=== PATIENT | female | born 1945 | race Caucasian/White ===

== ENCOUNTER 2016-10-12 15:36 | Inpatient (IN) | payer MEDICARE ==
[~2016-10-12] VITALS: Ht 162.6 cm; Wt 55.9 kg
[2016-10-12 19:00] VITALS: BP 99/56
[2016-10-12] MEDS ORDERED: SENNOSIDES 8.6 MG TABLET PO PRN (19:15)
[2016-10-12] MEDS ORDERED: METHOTREXATE SODIUM 50 MG/2 ML VIAL SQ SCH (21:00)
[2016-10-12] MEDS: CEPHALEXIN 250 MG CAPSULE. PO SCH ×2 (21:00→22:36)
[2016-10-12] MEDS: clonazePAM 0.5 MG TABLET PO SCH ×2 (21:00→22:36)
[2016-10-12 21:07] LABS: BASO % 0 % (0-3); EOS % 0 % (0-3); HEMATOCRIT 35.1 % (36.0-47.0); HEMOGLOBIN 11.6 g/dL (12.0-15.5); LYMPH # 1.3 x10^3/uL (1.0-4.8); LYMPH % 16 % (24-48); MEAN CORPUSCULAR HEMOGLOBIN 28 pg (25-35); MEAN CORPUSCULAR HGB CONC 33 g/dL (31-37); MEAN CORPUSCULAR VOLUME 86 fL (79-100); MONO % 10 % (0-9); NEUT % 74 % (31-73); PLATELET COUNT 303 x10^3/uL (140-400); RED CELL DISTRIBUTION WIDTH 17.4 % (11.5-14.5); WHITE BLOOD COUNT 8.3 x10^3/uL (4.0-11.0)
[2016-10-12 21:17] LABS: ALBUMIN 2.4 g/dL (3.4-5.0); ALBUMIN/GLOBULIN RATIO 0.6 (1.0-1.7); C-REACTIVE PROTEIN 125.5 mg/L (0-3.3); CREATININE 0.7 mg/dL (0.6-1.0); GFR 82.5; MAGNESIUM 2.1 mg/dL (1.8-2.4); POTASSIUM 3.4 mmol/L (3.5-5.1); TOTAL BILIRUBIN 0.7 mg/dL (0.2-1.0); TOTAL PROTEIN 6.5 g/dL (6.4-8.2)
[2016-10-12] MEDS: POTASSIUM CL 20MEQ IN D5W 1,000 ML IV SCH (22:36)
[2016-10-12] MEDS: XIIDRA OU SCH (22:37)
[2016-10-12 22:53] VITALS: BP_SYST 111; BP_SYST 97; BP_DIAS 29; BP_DIAS 62
[2016-10-12] MEDS: fentaNYL PF VIAL 100 MCG/2 ML VIAL IV PRN (23:44)
[2016-10-13] VITALS (7 sets, daily range): BP systolic 51–129; BP diastolic 25–77
[2016-10-13] MEDS: POLYVINYL ALCOHOL 1.4% OPHTH SOLUTION 15ML BOTTLE. OU SCH ×2 (06:35→17:45)
[2016-10-13] MEDS: fentaNYL PF VIAL 100 MCG/2 ML VIAL IV PRN ×2 (07:37→19:44)
[2016-10-13] MEDS: ASPIRIN CHEWABLE 81 MG TABLET. PO SCH (08:00)
[2016-10-13] MEDS: XIIDRA OU SCH ×2 (08:55→21:20)
[2016-10-13] MEDS: clonazePAM 0.5 MG TABLET PO SCH ×2 (09:00→21:21)
[2016-10-13] MEDS: MULTIVITAMIN with MINERAL TABLET. PO SCH (09:00)
[2016-10-13] MEDS: OLANZapine 2.5 MG TABLET PO SCH (09:00)
[2016-10-13] MEDS: CEPHALEXIN 250 MG CAPSULE. PO SCH ×2 (09:00→21:21)
[2016-10-13] MEDS: SERTRALINE 50 MG TABLET. PO SCH (09:00)
[2016-10-13] MEDS: amLODIPine BESYLATE 10 MG TABLET PO SCH (09:00)
[2016-10-13] MEDS: FOLIC ACID 1 MG TABLET. PO SCH (09:00)
[2016-10-13] MEDS: THIAMINE 100 MG TABLET. PO SCH (09:00)
[2016-10-13] MEDS: EZETIMIBE 10 MG TABLET. PO SCH (09:00)
--- NOTE | 2016-10-13 09:17 | PDOC2 ---
GI CONSULT Reason For Consult: EGD/PEG HPI: HPI: 71 y/o female recently at [facility], transferred to [facility] at [facility], and then transferred to [facility] last night. History from [facility] records and patient's sister; note son (not present) is DPOA but her sister is "with her all the time. " Seems h/o psych issues w/ decline in mental status, weakness, has been refusing food/liquids and spitting out medications. Has lost weight. I did see a note in her chart that a swallow study was negative, also some notes re: previous Dobhoff placement. GI consulted for EGD, possible PEG. PMH significant for polymyositis, previously on steroids, more recently on methotrexate. Sister relays "she's always had a fear of choking." Has complained of "all over pain" including some pain in her abdomen. Some question re: globus or odynophagia, also coughs up phlegm. The patient tells me she does not want a PEG tube; however, she is an unreliable historian and her sister indicates they have previously discussed a feeding tube and she was agreeable. No n/v, reflux/heartburn, diarrhea, constipation, hematochezia, melena. Has had previous EGD and colonoscopy. 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, breast cancer, osteopenia, ?colon polyps, bipolar/ depression/anxiety/psychosis, right rotator cuff tear, left hip replacement, left mastectomy, lymph node dissection, cholecystectomy, hemorrhoidectomy FH: Family History: No pertinent hx Social History: Smoke: Quit ALCOHOL: none Drugs: None ROS: Mostly obtained through sister: GEN: Denies fevers, chills, sweats HEENT: ?odynophagia CV: Denies chest pain RESP: Denies shortness of air, cough GI: Per HPI : Denies hematuria, dysuria ENDO: +weight loss MSK: +weakness SKIN: Denies jaundice, pruritus Vitals: Vitals: Vital Signs Date Time Temp Pulse Resp B/P (MAP) Pulse Ox O2 Delivery O2 Flow Rate FiO2 10/13/16 07:37 Room Air 10/13/16 03:00 98.1 96 20 105/59 (74) 96 98.1 Labs: Labs: Laboratory Tests Test 10/12/16 20:20 White Blood Count 8.3 x10^3/uL (4.0-11.0) Red Blood Count 4.10 x10^6/uL (3.50-5.40) Hemoglobin 11.6 g/dL (12.0-15.5) Hematocrit 35.1 % (36.0-47.0) Mean Corpuscular Volume 86 fL (79-100) Mean Corpuscular Hemoglobin 28 pg (25-35) Mean Corpuscular Hemoglobin Concent 33 g/dL (31-37) Red Cell Distribution Width 17.4 % (11.5-14.5) Platelet Count 303 x10^3/uL (140-400) Neutrophils (%) (Auto) 74 % (31-73) Lymphocytes (%) (Auto) 16 % (24-48) Monocytes (%) (Auto) 10 % (0-9) Eosinophils (%) (Auto) 0 % (0-3) Basophils (%) (Auto) 0 % (0-3) Neutrophils # (Auto) 6.2 x10^3uL (1.8-7.7) Lymphocytes # (Auto) 1.3 x10^3/uL (1.0-4.8) Monocytes # (Auto) 0.8 x10^3/uL (0.0-1.1) Eosinophils # (Auto) 0.0 x10^3/uL (0.0-0.7) Basophils # (Auto) 0.0 x10^3/uL (0.0-0.2) Erythrocyte Sedimentation Rate 67 (0-25) Sodium Level 136 mmol/L (136-145) Potassium Level 3.4 mmol/L (3.5-5.1) Chloride Level 103 mmol/L (98-107) Carbon Dioxide Level 22 mmol/L (21-32) Anion Gap 11 (6-14) Blood Urea Nitrogen 31 mg/dL (7-20) Creatinine 0.7 mg/dL (0.6-1.0) Estimated GFR (Cockcroft-Gault) 82.5 BUN/Creatinine Ratio 44 (6-20) Glucose Level 97 mg/dL (70-99) Calcium Level 10.0 mg/dL (8.5-10.1) Magnesium Level 2.1 mg/dL (1.8-2.4) Total Bilirubin 0.7 mg/dL (0.2-1.0) Aspartate Amino Transf (AST/SGOT) 18 U/L (15-37) Alanine Aminotransferase (ALT/SGPT) 10 U/L (14-59) Alkaline Phosphatase 77 U/L (46-116) Creatine Kinase 20 U/L (26-192) C-Reactive Protein, Quantitative 125.5 mg/L (0-3.3) Total Protein 6.5 g/dL (6.4-8.2) Albumin 2.4 g/dL (3.4-5.0) Albumin/Globulin Ratio 0.6 (1.0-1.7) Allergies: Coded Allergies: Zrclset-Fpa-Snl Reductase Inhibitor (Verified Allergy, Severe, 10/12/16) polymyositis codeine (Verified Adverse Reaction, Intermediate, N/V, 10/13/16) Medications: Current Medications Medications (Trade) Dose Ordered Sig/Tye Route PRN Reason Start Time Stop Time Status Last Admin Dose Admin Fentanyl Citrate (Fentanyl 2ml Vial) 25 mcg PRN Q4HRS PRN IV PAIN 10/12/16 18:30 10/13/16 07:37 Potassium Chloride/Dextrose 1,000 ml @ 75 mls/hr [id number] IV 10/12/16 21:30 10/12/16 22:36 Methotrexate 25 mg [id number] SQ 10/12/16 21:00 10/12/16 23:01 Artificial Tears (Artificial Tears) 1 drop [id number] OU 10/13/16 06:00 10/13/16 06:35 Non-Formulary Medication 1 ea BID OU 10/12/16 21:00 10/13/16 08:55 Imaging: Imaging: - PE: GEN: NAD HEENT: Atraumatic LUNGS: CTAB HEART: RRR ABD: NABS, S/ND/NT EXTREMITY: No edema SKIN: No rashes, no jaundice NEURO/PSYCH: awake, doesn't participate in discussion A/P: A/P: Psych issues/?cognitive impairment, refusing medications and PO intake Weakness ?globus/odynophagia -h/o "fear of choking" Polymyositis -previously on steroids, now methotrexate -- No plans for PEG today w/ apparently normal swallow evaluation. Will try to obtain these records. ?odynophagia and h/o steroid use - empirically treat for taina esophagitis w/ Nystatin. Also add PPI. ?PC consult [place] METCALF Oct 13, 2016 09:17
[2016-10-13] MEDS: NYSTATIN 100,000 UNITS/ML 5 ML ORAL.SUSP. SWSW SCH ×2 (09:30→13:00)
[2016-10-13] MEDS: PANTOPRAZOLE 40 MG TABLET.DR. PO SCH (09:30)
[2016-10-13] MEDS: POTASSIUM CL 20MEQ IN D5W 1,000 ML IV SCH (10:50)
[2016-10-13] MEDS: POTASSIUM CHLORIDE 40 MEQ in IV DEXTROSE 5% 1,000 ML IV SCH (11:26)
--- NOTE | 2016-10-13 14:20 | HP ---
ADMIT DATE: 10/12/2016 HISTORY OF PRESENT ILLNESS: This is a 71-year-old female patient. The patient was admitted to [facility] at [facility] as a transfer from [facility] where she was hospitalized. Her primary care physician referred her from [facility] on the account of decline in mental status, not eating in the context of questionable past history of psychosis and bipolar disorder. On admission to [facility], she was weak with severe hyponatremia. She was not eating and drinking and she continued with this problem at [facility], although she claims to have eating and drinking, reviewing the lab showed that her BUN and creatinine have dramatically worsened. She has hypercalcemia and severe hypomagnesemia and therefore, she was transferred to [address] [place] [address] to correct all the electrolytes and discuss with the family the options available. We did start her on IV fluids with potassium supplement and her lab works had improved. I am willing to discuss with her son, Wilfred, who lives in [place] and her sister and they were both interested in placement of a gastrostomy tube; however, her lab work showed multiple abnormalities including markedly elevated inflammatory markers with a C-reactive protein of 125 and a sed rate of 67 mm per hour and hypercalcemia. She has a history of polymyositis for which she is on steroids. 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 She has also breast cancer with the left mastectomy, so I have explained to her son that it may be better to make sure that we exclude any of these especially if she has metastatic disease and/or esophageal stricture, to treat that before rushing into placement of gastrostomy tube to which they agreed and the patient was transferred to [facility] to consult the Gastroenterology team, Infectious Disease, Neurology, and Rheumatology. PAST MEDICAL HISTORY: Significant for polymyositis, hypertension, left hip prosthesis infection for which she is on suppressive treatment in the form of cephalexin 500 mg twice a day. She has also had breast cancer status post mastectomy and lymph node dissection. She is known to have osteopenia. PAST SURGICAL HISTORY: Significant for left mastectomy and left hip replacement. ALLERGIES: SHE IS ALLERGIC TO STATINS WELL CODEINE. MEDICATIONS: She is currently on the following medications: Tylenol 650 mg q. 4 hours as needed for pain or fever, amlodipine 10 mg once a day, aspirin chewable tablet 81 mg once a day, cephalexin 500 mg twice a day, clonazepam 0.5 mg p.o. b.i.d., Zetia 10 mg once a day, fentanyl 25 mcg IV q. 4 hours as needed, folic acid 1 mg once a day, methotrexate 25 mg subcutaneously once a week, multivitamin with mineral 1 tablet once a day. She is on olanzapine 2.5 mg at bedtime, ondansetron 4 mg q. 4 hours as needed for nausea and vomiting, Protonix 40 mg once a day, polyvinyl alcohol 1.4% ophthalmic solution 1 drop to both eyes twice a day, potassium chloride 20 mEq, 1000 mL of D5W IV at 75 mL per hour, senna 1 tablet twice a day, sertraline 50 mg once a day, and thiamine 100 mg once a day. FAMILY HISTORY: Noncontributory. SOCIAL HISTORY: She is . She usually resides at [facility]. She has 3 sons. She does not smoke, drink alcohol, or use recreational drugs. REVIEW OF SYSTEMS: As per history of present illness. PHYSICAL EXAMINATION GENERAL: When I examined her today, she was resting flat in bed comfortably, in no apparent distress. She was pale, but no jaundice, cyanosis, or thyromegaly. No jugular venous distension. No limb edema. VITAL SIGNS: Her heart rate was 96, blood pressure 105/59, temperature was 98.1, respiratory rate 20, and oxygen saturation was 96% on room air. HEAD, EYES, EARS, NOSE, THROAT: Showed normocephalic, atraumatic. NECK: Supple. HEART: Showed normal first and second heart sounds with no gallop, rub, or murmur. CHEST: Clear to auscultation. No crepitation or rhonchi. ABDOMEN: Distended, soft, nontender. No guarding or rigidity. No organomegaly. Hernial orifices intact. Bowel sounds normal. NEUROLOGIC: She was awake, alert, but very confused at times. All her cranial nerves intact. She moves her extremities without difficulty, although she is mostly bed bound and chair bound as of this morning. LABORATORY DATA: Showed a white cell count of 8300, hemoglobin 11.6, hematocrit 35, MCV 86, and platelet count of 303,000 with normal manual differential. Her sedimentation rate was 67 mm per hour. Her chemistry showed a serum sodium 136, potassium 3.4, chloride 103, bicarbonate 22, anion gap of 11, BUN 31, creatinine 0.7. Estimated GFR was 82 mL per minute. Her glucose was 97. Calcium was 10, magnesium 2.1. Total bilirubin, AST, ALT, alkaline phosphatase were normal. Her total protein was 6.5, albumin was 2.4. C-reactive protein was 125 mg/dL. ASSESSMENT: 1. Severe anorexia versus dysphagia due to polymyositis versus esophageal stricture. 2. Polymyositis, which she is on steroids. 3. Hypercalcemia. 4. History of septic right shoulder joint and infected left hip prosthesis which needs suppressive therapy, but she is not taking her medication for that. She has also had previous history of breast cancer status post left mastectomy. She apparently had had a total body bone scan at [facility], which was unremarkable. PLAN: My plan is to consult the Gastroenterology with the aim of upper gastrointestinal endoscopy to rule out the possibility of esophageal strictures, the cause of her poor oral intake. I would also consult the neurologist, humane agent, and Infectious Disease and we will proceed with gastrostomy tube placement, sometimes the beginning of next week. ARVIN SALMON MD DR: DILSHAD/ben JOB#: [id number] / [id number]
--- NOTE | 2016-10-13 14:30 | PDOC2 ---
NEUROLOGY CONSULT Date of Admission Date of Admission DATE: 10/13/16 TIME: 14:17 Reason for Consult Reason for Consult: IMPRESSION: Dysphagia. Weakness, generalized. Left side breast cancer, s/p mastectomy and chemo. HTN HLD OA Bipolar disorder. Weight loss. RECOMMENDATIONS/PLAN: Brain MRI w/wo contrast. Lab: see orders, including MG panel. Please consult GI as well. Speech and swallow evaluation. OT/PT Discussed with her sister at bedside on 10/13/16. HISTORY OF THE PRESENT ILLNESS: 71-y-old female patient with Hx of breast cancer and other medical diseases has been having symptoms of dysphagia chronically but now is worse. She always afraid chocking when she swallows per her sister. She had left side breast cancer in 1997 and received mastectomy and chemo. 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 PAST SURGERY HISTORY: Left breast mastectomy. ALLERGY: Reviewed. MEDICATIONS: Refer to [facility] REVIEW OF SYSTEMS: Constitutional: Mild malnutrition. Head: No traumatic brain or head injury. Skin: No edema, or rash. Ear: No infection. Eyes: No vision loss or color blindness. Nose: No bleeding or purulent discharges. Hearing: Mild hearing decrease. Neck: No injury. Breast: Cancer. Cardiac: HTN, HLD. Pulmonary: No COPD. GI: Dysphagia. Urinary/genital: UTI. Endocrinologic: No cousin face, craniofacial dysmorphism, polydactyly. Skeletomuscular: Generalized weakness. Neurological: see HP. Psychiatric: Denies drug use/abuse. Otherwise, not [id number] review of systems. PHYSICAL EXAMINATION: General appearance is in subacute distress. HEENT: Normocephalic and nontraumatic. Eyes, nose, ears, and throat are unremarkable. Neck is supple. No lymphadenopathy. No crepitus. Cardiovascular: S1, S2, regular rate and rhythm. Pulmonary: Clear to auscultation bilaterally. Abdomen: Bowel sounds are positive. Abdomen is soft, nontender, and nondistended. Extremities: No rash, lesions, or edema. No restriction of range of motion NEUROLOGICAL EXAMINATION: Awake. Not fully oriented to time, but knows place and person. PERRL. EOMI. CN: no focal findings. Muscle tone: within normal. Muscle strength: 4- DTR: 1-2 Plantar reflex: Neutral response bilaterally Gait: not examined in bed. Sensory exam: no abnormal findings. No cerebellar signs elicited. F-T-N test not performed due to not follow commands. Current Medications Current Medications Current Medications Fentanyl Citrate (Fentanyl 2ml Vial) 25 mcg PRN Q4HRS PRN IV PAIN Last administered on 10/13/16 07:37; Start 10/12/16 at 18:30 Ondansetron HCl (Zofran) 4 mg PRN Q4HRS PRN IV NAUSEA/VOMITING; Start 10/12/16 at 18:30 Potassium Chloride/Dextrose 1,000 ml @ 75 mls/hr [id number] IV Last administered on 10/12/16 22:36; Start 10/12/16 at 21:30; Stop 10/13/16 at 10:55; Status DC Acetaminophen (Tylenol) 650 mg PRN Q4HRS PRN PO FEVER; Start 10/12/16 at 18:45 Aspirin (Children'S Aspirin) 81 mg [id number] PO ; Start 10/13/16 at 08:00 Cephalexin HCl (Keflex) 500 mg BID PO ; Start 10/12/16 at 21:00 EZETIMIBE (Zetia) 10 mg DAILY PO ; Start 10/13/16 at 09:00 Folic Acid (Folic Acid) 1 mg DAILY PO ; Start 10/13/16 at 09:00 Methotrexate 25 mg WEEKLYHS SQ Last administered on 10/12/16 23:01; Start at 21:00 Multivitamins (Thera M Plus) 1 tab DAILY PO ; Start 10/13/16 at 09:00 Olanzapine (ZyPREXA) 2.5 mg DAILY PO ; Start 10/13/16 at 09:00 Artificial Tears (Artificial Tears) 1 drop [id number] OU Last administered on 06:35; Start 10/13/16 at 06:00 Sennosides (Senna) 8.6 mg PRN BID PRN PO CONSTIPATION; Start 10/12/16 at 19:15 Sertraline HCl (Zoloft) 50 mg DAILY PO ; Start 10/13/16 at 09:00 Thiamine Mononitrate (Vitamin B-1) 100 mg DAILY PO ; Start 10/13/16 at 09:00 Amlodipine Besylate (Norvasc) 10 mg DAILY PO ; Start 10/13/16 at 09:00 Clonazepam (KlonoPIN) 0.5 mg BID PO ; Start 10/12/16 at 21:00 Non-Formulary Medication 1 ea BID OU Last administered on 10/13/16 08:55; Start 10/12/16 at 21:00 Nystatin 5 ml [id number] ; Start 10/13/16 at 09:30 Pantoprazole Sodium (Protonix) 40 mg DAILYAC PO ; Start 10/13/16 at 09:30 Potassium Chloride 40 meq/ Dextrose 1,020 ml @ 100 mls/hr [id number] IV Last administered on 10/13/16 11:26; Start 10/13/16 at 11:30 Allergies Allergies: Coded Allergies: Ccljack-Ele-Tdl Reductase Inhibitor (Verified Allergy, Severe, 10/12/16) polymyositis codeine (Verified Adverse Reaction, Intermediate, N/V, 10/13/16) Vitals VITALS Vital Signs Date Time Temp Pulse Resp B/P (MAP) Pulse Ox O2 Delivery O2 Flow Rate FiO2 10/13/16 11:25 100.2 93 16 107/57 (74) 95 Room Air 100.2 Labs Labs Laboratory Tests Test 10/12/16 20:20 White Blood Count 8.3 x10^3/uL (4.0-11.0) Red Blood Count 4.10 x10^6/uL (3.50-5.40) Hemoglobin 11.6 g/dL (12.0-15.5) Hematocrit 35.1 % (36.0-47.0) Mean Corpuscular Volume 86 fL (79-100) Mean Corpuscular Hemoglobin 28 pg (25-35) Mean Corpuscular Hemoglobin Concent 33 g/dL (31-37) Red Cell Distribution Width 17.4 % (11.5-14.5) Platelet Count 303 x10^3/uL (140-400) Neutrophils (%) (Auto) 74 % (31-73) Lymphocytes (%) (Auto) 16 % (24-48) Monocytes (%) (Auto) 10 % (0-9) Eosinophils (%) (Auto) 0 % (0-3) Basophils (%) (Auto) 0 % (0-3) Neutrophils # (Auto) 6.2 x10^3uL (1.8-7.7) Lymphocytes # (Auto) 1.3 x10^3/uL (1.0-4.8) Monocytes # (Auto) 0.8 x10^3/uL (0.0-1.1) Eosinophils # (Auto) 0.0 x10^3/uL (0.0-0.7) Basophils # (Auto) 0.0 x10^3/uL (0.0-0.2) Erythrocyte Sedimentation Rate 67 (0-25) Sodium Level 136 mmol/L (136-145) Potassium Level 3.4 mmol/L (3.5-5.1) Chloride Level 103 mmol/L (98-107) Carbon Dioxide Level 22 mmol/L (21-32) Anion Gap 11 (6-14) Blood Urea Nitrogen 31 mg/dL (7-20) Creatinine 0.7 mg/dL (0.6-1.0) Estimated GFR (Cockcroft-Gault) 82.5 BUN/Creatinine Ratio 44 (6-20) Glucose Level 97 mg/dL (70-99) Calcium Level 10.0 mg/dL (8.5-10.1) Magnesium Level 2.1 mg/dL (1.8-2.4) Total Bilirubin 0.7 mg/dL (0.2-1.0) Aspartate Amino Transf (AST/SGOT) 18 U/L (15-37) Alanine Aminotransferase (ALT/SGPT) 10 U/L (14-59) Alkaline Phosphatase 77 U/L (46-116) Creatine Kinase 20 U/L (26-192) C-Reactive Protein, Quantitative 125.5 mg/L (0-3.3) Total Protein 6.5 g/dL (6.4-8.2) Albumin 2.4 g/dL (3.4-5.0) Albumin/Globulin Ratio 0.6 (1.0-1.7) Laboratory Tests Test 10/12/16 20:20 White Blood Count 8.3 x10^3/uL (4.0-11.0) Red Blood Count 4.10 x10^6/uL (3.50-5.40) Hemoglobin 11.6 g/dL (12.0-15.5) Hematocrit 35.1 % (36.0-47.0) Mean Corpuscular Volume 86 fL (79-100) Mean Corpuscular Hemoglobin 28 pg (25-35) Mean Corpuscular Hemoglobin Concent 33 g/dL (31-37) Red Cell Distribution Width 17.4 % (11.5-14.5) Platelet Count 303 x10^3/uL (140-400) Neutrophils (%) (Auto) 74 % (31-73) Lymphocytes (%) (Auto) 16 % (24-48) Monocytes (%) (Auto) 10 % (0-9) Eosinophils (%) (Auto) 0 % (0-3) Basophils (%) (Auto) 0 % (0-3) Neutrophils # (Auto) 6.2 x10^3uL (1.8-7.7) Lymphocytes # (Auto) 1.3 x10^3/uL (1.0-4.8) Monocytes # (Auto) 0.8 x10^3/uL (0.0-1.1) Eosinophils # (Auto) 0.0 x10^3/uL (0.0-0.7) Basophils # (Auto) 0.0 x10^3/uL (0.0-0.2) Erythrocyte Sedimentation Rate 67 (0-25) Sodium Level 136 mmol/L (136-145) Potassium Level 3.4 mmol/L (3.5-5.1) Chloride Level 103 mmol/L (98-107) Carbon Dioxide Level 22 mmol/L (21-32) Anion Gap 11 (6-14) Blood Urea Nitrogen 31 mg/dL (7-20) Creatinine 0.7 mg/dL (0.6-1.0) Estimated GFR (Cockcroft-Gault) 82.5 BUN/Creatinine Ratio 44 (6-20) Glucose Level 97 mg/dL (70-99) Calcium Level 10.0 mg/dL (8.5-10.1) Magnesium Level 2.1 mg/dL (1.8-2.4) Total Bilirubin 0.7 mg/dL (0.2-1.0) Aspartate Amino Transf (AST/SGOT) 18 U/L (15-37) Alanine Aminotransferase (ALT/SGPT) 10 U/L (14-59) Alkaline Phosphatase 77 U/L (46-116) Creatine Kinase 20 U/L (26-192) C-Reactive Protein, Quantitative 125.5 mg/L (0-3.3) Total Protein 6.5 g/dL (6.4-8.2) Albumin 2.4 g/dL (3.4-5.0) Albumin/Globulin Ratio 0.6 (1.0-1.7) JAYANT URENA MD Oct 13, 2016 14:30
--- NOTE | 2016-10-13 15:45 | PDOC ---
Infectious Disease Note Vital Sign Vital Signs Vital Signs Date Time Temp Pulse Resp B/P (MAP) Pulse Ox O2 Delivery O2 Flow Rate FiO2 10/13/16 11:25 100.2 93 16 107/57 (74) 95 Room Air 100.2 Labs Lab Laboratory Tests Test 10/12/16 20:20 White Blood Count 8.3 x10^3/uL (4.0-11.0) Red Blood Count 4.10 x10^6/uL (3.50-5.40) Hemoglobin 11.6 g/dL (12.0-15.5) Hematocrit 35.1 % (36.0-47.0) Mean Corpuscular Volume 86 fL (79-100) Mean Corpuscular Hemoglobin 28 pg (25-35) Mean Corpuscular Hemoglobin Concent 33 g/dL (31-37) Red Cell Distribution Width 17.4 % (11.5-14.5) Platelet Count 303 x10^3/uL (140-400) Neutrophils (%) (Auto) 74 % (31-73) Lymphocytes (%) (Auto) 16 % (24-48) Monocytes (%) (Auto) 10 % (0-9) Eosinophils (%) (Auto) 0 % (0-3) Basophils (%) (Auto) 0 % (0-3) Neutrophils # (Auto) 6.2 x10^3uL (1.8-7.7) Lymphocytes # (Auto) 1.3 x10^3/uL (1.0-4.8) Monocytes # (Auto) 0.8 x10^3/uL (0.0-1.1) Eosinophils # (Auto) 0.0 x10^3/uL (0.0-0.7) Basophils # (Auto) 0.0 x10^3/uL (0.0-0.2) Erythrocyte Sedimentation Rate 67 (0-25) Sodium Level 136 mmol/L (136-145) Potassium Level 3.4 mmol/L (3.5-5.1) Chloride Level 103 mmol/L (98-107) Carbon Dioxide Level 22 mmol/L (21-32) Anion Gap 11 (6-14) Blood Urea Nitrogen 31 mg/dL (7-20) Creatinine 0.7 mg/dL (0.6-1.0) Estimated GFR (Cockcroft-Gault) 82.5 BUN/Creatinine Ratio 44 (6-20) Glucose Level 97 mg/dL (70-99) Calcium Level 10.0 mg/dL (8.5-10.1) Magnesium Level 2.1 mg/dL (1.8-2.4) Total Bilirubin 0.7 mg/dL (0.2-1.0) Aspartate Amino Transf (AST/SGOT) 18 U/L (15-37) Alanine Aminotransferase (ALT/SGPT) 10 U/L (14-59) Alkaline Phosphatase 77 U/L (46-116) Creatine Kinase 20 U/L (26-192) C-Reactive Protein, Quantitative 125.5 mg/L (0-3.3) Total Protein 6.5 g/dL (6.4-8.2) Albumin 2.4 g/dL (3.4-5.0) Albumin/Globulin Ratio 0.6 (1.0-1.7) Objective Assessment h/o staph infection of left hip prosthesis, on chronic Keflex Fever Dysphagia Immunosuppression on methotrexate for polymyositis h/o breast cancer on surveillance h/o MRSA Encephalopathy Plan Plan of Care BC CT Chest abd/pelvis r/o occult source with prosthesis also Procalcitonin in am F/u CT results prior to abx in case a focus of infection is seen and can be drained or sampled Await brain MRI Await EGD and possible gastrostomy tube placement Monitor lab values D/w sister Thank you Attending Co-Sign Attending Co-Sign The patient was seen and interviewed as well as examined at the bedside. The chart was reviewed. The case was discussed. Agree with the plan of care. YANE MOTTA APRN Oct 13, 2016 15:45 BOBBY PERERA MD Oct 13, 2016 15:50
[2016-10-13] MEDS ORDERED: IOHEXOL 300 MG/ML 75 ML VIAL IV ONE (16:00)
[2016-10-13] MEDS ORDERED: CONTRAST GIVEN MC PRN (16:00)
[2016-10-13] MEDS: FLUCONAZOLE 100MG/50ML PREMIX 50 ML IV SCH (16:51)
--- NOTE | 2016-10-13 17:19 | RAD ---
Indication fever of unknown origin. Axial images through the chest abdomen and pelvis were obtained. 75 cc of Omnipaque 300 was administered intravenously. No oral contrast was administered. The history of breast malignancy is noted. No prior imaging is available. CT chest: Findings. There are small nodules seen associated with the left lobe of the thyroid. These could be further evaluated with ultrasound. The thoracic aorta is unremarkable. There is no significant hilar or mediastinal adenopathy. There is no dominant soft tissue mass in either lung. An acute parenchymal infiltrate is not seen. CT abdomen and pelvis: Findings. Imaging through the pelvis is slightly degraded by bilateral total hip prostheses. No significant finding is seen in the liver and the spleen appears normal. The gallbladder is not seen. Correlation with surgical history advised. No pancreatic mass is seen. A significant finding involving the kidneys is not seen. There is a right renal cyst. There is slight dilatation of bowel loops in the right upper quadrant. This is nonspecific. High-grade mechanical obstruction is not suggested on this study. An acute finding or focus of infection in the abdomen is not seen. In the pelvis no mass inflammatory process or definite acute finding is seen. IMPRESSION: No acute or definite infectious process seen in the chest, abdomen or pelvis. Mild dilatation of small bowel loops in the right upper abdomen is nonspecific Small nodules associated with the left lobe of the thyroid probably incidental PQRS Compliance Statement: One or more of the following individualized dose reduction techniques were utilized for this examination: 1. Automated exposure control 2. Adjustment of the mA and/or kV according to patient size 3. Use of iterative reconstruction technique
[2016-10-13] MEDS ORDERED: GADOBUTROL 7.5 MMOL/7.5 ML VIAL IV ONE (18:45)
--- NOTE | 2016-10-13 19:35 | RAD ---
EXAM: Brain MRI with and without contrast. HISTORY: Breast cancer. Confusion. TECHNIQUE: Multiplanar, multisequence magnetic resonance imaging of the brain was performed prior to and following the administration of 5 cc cc Gadavist intravenous contrast. COMPARISON: Head CT dated 10/10/2016. FINDINGS: There is no restricted diffusion to suggest acute or subacute infarction. There is no susceptibility effect to suggest hemorrhage. There is no mass effect or midline shift. There is no hydrocephalus. There are extensive scattered and confluent areas of T2/FLAIR hyperintensity within the cerebral white matter, a nonspecific finding. There is mild age-appropriate cerebral volume loss. The orbits are unremarkable. There is mild paranasal sinus because of thickening and a small amount of fluid within the mastoid air cells. There are normal flow voids within the cerebral vessels. No suspicious enhancing lesion is seen. There is a tiny focus of enhancement within the right parietal bone, consistent with a hemangioma. IMPRESSION: 1. No acute intracranial finding or evidence of intracranial metastasis. 2. Scattered areas of signal change throughout the cerebral white matter, a nonspecific finding likely due to chronic small vessel disease. Electronically signed by: Zoila Arndt MD (10/13/2016 7:32 PM)
[2016-10-13 20:15] LABS: BILIRUBIN,URINE NEGATIVE (NEG); GLUCOSE,URINE NEGATIVE (NEG); NITRITE,URINE NEGATIVE (NEG); PH,URINE 5.5; PROTEIN,URINE NEGATIVE (NEG-TRACE); UROBILINOGEN,URINE 0.2 mg/dL (0.2 mg/dL)
[2016-10-13 20:26] LABS: BACTERIA,URINE 0 /HPF (0-FEW); RBC,URINE 0 /HPF (0-2); SQUAMOUS EPITHELIAL CELL,UR OCC /LPF; WBC,URINE OCC /HPF (0-4)
[2016-10-13] MEDS: ONDANSETRON PF 4 MG/2 ML VIAL. IV PRN (22:47)
[2016-10-14] MEDS: POTASSIUM CHLORIDE 40 MEQ in IV DEXTROSE 5% 1,000 ML IV SCH ×2 (00:06→09:59)
--- NOTE | 2016-10-14 03:33 | CONS ---
DATE OF CONSULTATION: 10/13/2016 REFERRING PHYSICIAN: Dr. Lazara Linton. REASON FOR CONSULTATION: History of infected prosthesis and elevated inflammatory markers. HISTORY OF PRESENT ILLNESS: This patient is a 71-year-old female with a past medical history of polymyositis, for which she receives weekly methotrexate injections. According to her sister, Maddi, the patient had been living independently up until 5 months or so ago when she experienced "some sort of psychotic breakdown" associated with visual hallucinations. She was diagnosed with bipolar disorder, ivan. She was followed by Psychiatry and had been prescribed several psychotropic medications. Unfortunately, her functional status declined. Unable to care for herself, the patient moved in with her sister. At one point, she started to walk, eat, and talk again, acting more herself. But within 3 weeks time she declined and eventually was admitted to a fpc. From there she was hospitalized at [facility] for dehydration and then transferred to a [facility] in [facility] for further evaluation. She continued not to eat or drink. She developed worsening renal function and electrolytes imbalance. Thus, she was transferred to [facility] for further evaluation, including a possible gastrostomy tube placement. The patient has a history of septic arthritis of the right shoulder and a left hip prosthesis Staphylococcus infection, on chronic suppression with Keflex. However, she has been refusing to take her medications and her inflammatory markers have increased. Thus, Infectious Disease has been asked to consult. The patient spiked a fever of 100.2 earlier. She denies chills, headache, or cough. She is very weak, requiring assistance with activities of daily living. She is incontinent of bowel and bladder. Her stools are loose. She requested a drink of water, but refused to try a moistened swab first. Her sister said that she is hungry, but when she puts food in her mouth, she just spits it out. The patient denies nausea, vomiting, or abdominal discomfort. Denies hip pain. She has cataracts and was scheduled to have extraction before change in health. PAST MEDICAL HISTORY: Staphylococcus infection of left hip prosthesis, on chronic suppressive therapy, Keflex. Septic arthritis of right shoulder. History of methicillin-resistant Staphylococcus aureus. Polymyositis, on weekly methotrexate injections. History of breast cancer in 1997, now on surveillance. Hypertension, cataracts, depression, bipolar disorder, and anxiety. PAST SURGICAL HISTORY: Left hip replacement, left mastectomy. FAMILY HISTORY: Noncontributory. SOCIAL HISTORY: The patient had been residing in a fpc before hospitalization. She lives in [place] and [place]. ALLERGIES: STATINS AND CODEINE. MEDICATIONS: Cephalexin, methotrexate. Other medications are available and have been reviewed on the JUN. REVIEW OF SYSTEMS: Per HPI, otherwise all other review of systems are negative. PHYSICAL EXAMINATION: GENERAL: A thin, female, lying in bed in no apparent distress. VITAL SIGNS: Temperature 100.2, blood pressure 107/57, heart rate 93, respiratory rate 16, and pulse oximetry is 95% on room air. Weight is 160.5 pounds. BMI 20. NECK: Pupils are equally round and reactive. Normal conjunctivae. Oral mucosa is pink, dry. NECK: Supple. LUNGS: Clear to auscultation. HEART: Normal S1 and S2. ABDOMEN: Nondistended. Bowel sounds are present, soft, and nontender. EXTREMITIES: No gross edema or cyanosis. SKIN: Without rash. Left hip without warmth, redness, or swelling. Surgical scar noted. NEUROLOGIC: Awake, responds to simple questions appropriately. Poor historian. Follows simple commands. 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 ADMITTING LABORATORY DATA: Recent WBC 8300, hemoglobin 11.6, hematocrit 35.1, and platelet count 303,000. ESR 67, sodium 136, potassium 3.5, creatinine 0.7, BUN 31, glucose 97, total bilirubin 0.7, AST 18, ALT 10, creatine kinase 20, CRP 125.5, and albumin 2.4. TSH is 0.744. MRI of brain pending. Urinalysis and MRSA screen pending. IMPRESSION: 1. History of Staphylococcus infection of left hip prosthesis, on chronic Keflex. 2. Fever. 3. Dysphagia. 4. Immune suppression, on methotrexate for polymyositis. 5. History of breast cancer, on surveillance. 6. Encephalopathy. 7. History of breast cancer, on surveillance. 8. History of methicillin-resistant Staphylococcus aureus. PLAN: Check blood cultures. CT of chest, abdomen, and pelvis to rule out occult source. Await results prior to antibiotics in case a focal infection is seen and can be drained or sampled. Monitor laboratory values. Await brain MRI and EGD and possible gastrostomy tube placement. Thank you, Dr. Linton for asking me to participate in this patient's care. Should you have further questions or concerns, please call. The patient is seen and examined and plan of care implemented by Dr. Bobby Lamb. BOBBY LAMB MD DR: TARIK/ben JOB#: [id number] / [id number] VITO
[2016-10-14 05:34] LABS: HEMATOCRIT 34.3 % (36.0-47.0); HEMOGLOBIN 11.4 g/dL (12.0-15.5); RED BLOOD COUNT 4.04 x10^6/uL (3.50-5.40); WHITE BLOOD COUNT 6.5 x10^3/uL (4.0-11.0)
[2016-10-14 05:56] LABS: ALBUMIN 2.2 g/dL (3.4-5.0); ALBUMIN/GLOBULIN RATIO 0.7 (1.0-1.7); CALCIUM 8.9 mg/dL (8.5-10.1); CREATININE 0.5 mg/dL (0.6-1.0); GFR 121.6; POTASSIUM 4.8 mmol/L (3.5-5.1); TOTAL BILIRUBIN 0.6 mg/dL (0.2-1.0); TOTAL PROTEIN 5.4 g/dL (6.4-8.2)
[2016-10-14] MEDS: POLYVINYL ALCOHOL 1.4% OPHTH SOLUTION 15ML BOTTLE. OU SCH ×2 (06:03→16:45)
[2016-10-14] MEDS: PANTOPRAZOLE 40 MG TABLET.DR. PO SCH (07:30)
[2016-10-14 07:34] VITALS: BP 120/69
[2016-10-14] MEDS: ASPIRIN CHEWABLE 81 MG TABLET. PO SCH (08:00)
[2016-10-14] MEDS: THIAMINE 100 MG TABLET. PO SCH (09:00)
[2016-10-14] MEDS: amLODIPine BESYLATE 10 MG TABLET PO SCH (09:00)
[2016-10-14] MEDS: OLANZapine 2.5 MG TABLET PO SCH (09:00)
[2016-10-14] MEDS: SERTRALINE 50 MG TABLET. PO SCH (09:00)
[2016-10-14] MEDS: FOLIC ACID 1 MG TABLET. PO SCH (09:00)
[2016-10-14] MEDS: MULTIVITAMIN with MINERAL TABLET. PO SCH (09:00)
[2016-10-14] MEDS: clonazePAM 0.5 MG TABLET PO SCH ×3 (09:00→20:01)
[2016-10-14] MEDS: CEPHALEXIN 250 MG CAPSULE. PO SCH (09:00)
[2016-10-14] MEDS: EZETIMIBE 10 MG TABLET. PO SCH (09:00)
[2016-10-14] MEDS: XIIDRA OU SCH ×2 (09:06→19:21)
--- NOTE | 2016-10-14 10:08 | PDOC ---
Infectious Disease Note Subjective Subjective "I'm in a crazy house." Feels stronger Denies pain No since yesterday Vital Sign Vital Signs Vital Signs Date Time Temp Pulse Resp B/P (MAP) Pulse Ox O2 Delivery O2 Flow Rate FiO2 10/14/16 08:00 Room Air 10/14/16 07:34 98.8 91 18 120/69 (86) 96 98.8 Physical Exam PHYSICAL EXAM GENERAL: Propped up in bed, weak appearing, NAD HENT: Oral cavity dry LUNGS: Clear to auscultation. HEART: Normal S1 and S2. ABDOMEN: Nondistended. Bowel sounds are present, soft, and nontender. EXTREMITIES: No gross edema or cyanosis. SKIN: Without rash. Left hip without warmth, redness, or swelling. Surgical scar noted. NEUROLOGIC: Arouses easily to name, decrease attention span, follows simple commands, more confused. 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 Proximal weakness Labs Lab Laboratory Tests Test 10/13/16 14:35 10/13/16 17:15 10/14/16 05:15 Vitamin B12 Level > 2000 pg/mL (247-911) 25-Hydroxy Vitamin D Total 47.7 ng/mL (30.0-100.0) Thyroid Stimulating Hormone (TSH) 0.744 uIU/mL (0.358-3.74) Urine Color Yellow Urine Clarity Cloudy Urine pH 5.5 Urine Specific [place] >=1.030 Urine Protein Negative mg/dL (NEG-TRACE) Urine Glucose (UA) Negative mg/dL (NEG) Urine Ketones (Stick) Negative mg/dL (NEG) Urine Blood Negative (NEG) Urine Nitrite Negative (NEG) Urine Bilirubin Negative (NEG) Urine Urobilinogen Dipstick 0.2 mg/dL (0.2 mg/dL) Urine Leukocyte Esterase Negative (NEG) Urine RBC 0 /HPF (0-2) Urine WBC Occ /HPF (0-4) Urine Squamous Epithelial Cells Occ /LPF Urine Amorphous Sediment Present /HPF Urine Bacteria 0 /HPF (0-FEW) Urine Hyaline Casts Occasional /HPF Urine Mucus Mod /LPF White Blood Count 6.5 x10^3/uL (4.0-11.0) Red Blood Count 4.04 x10^6/uL (3.50-5.40) Hemoglobin 11.4 g/dL (12.0-15.5) Hematocrit 34.3 % (36.0-47.0) Mean Corpuscular Volume 85 fL (79-100) Mean Corpuscular Hemoglobin 28 pg (25-35) Mean Corpuscular Hemoglobin Concent 33 g/dL (31-37) Red Cell Distribution Width 17.0 % (11.5-14.5) Platelet Count 312 x10^3/uL (140-400) Sodium Level 129 mmol/L (136-145) Potassium Level 4.8 mmol/L (3.5-5.1) Chloride Level 97 mmol/L (98-107) Carbon Dioxide Level 25 mmol/L (21-32) Anion Gap 7 (6-14) Blood Urea Nitrogen 13 mg/dL (7-20) Creatinine 0.5 mg/dL (0.6-1.0) Estimated GFR (Cockcroft-Gault) 121.6 BUN/Creatinine Ratio 26 (6-20) Glucose Level 119 mg/dL (70-99) Calcium Level 8.9 mg/dL (8.5-10.1) Total Bilirubin 0.6 mg/dL (0.2-1.0) Aspartate Amino Transf (AST/SGOT) 20 U/L (15-37) Alanine Aminotransferase (ALT/SGPT) 12 U/L (14-59) Alkaline Phosphatase 74 U/L (46-116) Total Protein 5.4 g/dL (6.4-8.2) Albumin 2.2 g/dL (3.4-5.0) Albumin/Globulin Ratio 0.7 (1.0-1.7) Procalcitonin < 0.10 ng/mL (0.00-0.10) CT chest, abdomen and pelvis IMPRESSION: No acute or definite infectious process seen in the chest, abdomen or pelvis. Mild dilatation of small bowel loops in the right upper abdomen is nonspecific Small nodules associated with the left lobe of the thyroid probably incidental Brain MRI IMPRESSION: 1. No acute intracranial finding or evidence of intracranial metastasis. 2. Scattered areas of signal change throughout the cerebral white matter, a nonspecific finding likely due to chronic small vessel disease. Objective Assessment h/o staph infection of left hip prosthesis, on chronic Keflex Fever Dysphagia Encephalopathy Immunosuppression on methotrexate for polymyositis h/o breast cancer on surveillance h/o MRSA Plan Plan of Care Fluconazole DIsc dhronic Keflex. Begin Zosyn/Vanc XRAY left hip Procalcitonin <0.10 BC pending Await EGD and possible gastrostomy tube placement Monitor lab values D/w YANE Rasmussen APRN Oct 14, 2016 10:07 BOBBY PERERA MD Oct 14, 2016 13:30
[2016-10-14 10:30] VITALS: BP 110/70
[2016-10-14] MEDS ORDERED: ACETAMINOPHEN 650 MG SUPP.RECT. PR PRN (10:45)
[2016-10-14] MEDS: POTASSIUM CL 20MEQ D5-0.45NACL 1,000 ML IV SCH ×2 (10:58→23:05)
--- NOTE | 2016-10-14 12:19 | PDOC ---
PROGRESS NOTES Assessment Assessment Dysphagia. Weakness, generalized. Left side breast cancer, s/p mastectomy and chemo. HTN HLD OA Bipolar disorder. Weight loss. No evidence of acute CVA or brain metastatic disease this time. RECOMMENDATIONS/PLAN: Lab: see orders, including MG panel. Please consult GI as well. Speech and swallow evaluation. Treat medical diseases. OT/PT Discussed with her sister at bedside on 10/13/16. HISTORY OF THE PRESENT ILLNESS: 71-y-old female patient with Hx of breast cancer and other medical diseases has been having symptoms of dysphagia chronically but now is worse. She always afraid chocking when she swallows per her sister. She had left side breast cancer in 1997 and received mastectomy and chemo. 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 PAST SURGERY HISTORY: Left breast mastectomy. ALLERGY: Reviewed. MEDICATIONS: Refer to MAR REVIEW OF SYSTEMS: Constitutional: Mild malnutrition. Head: No traumatic brain or head injury. Skin: No edema, or rash. Ear: No infection. Eyes: No vision loss or color blindness. Nose: No bleeding or purulent discharges. Hearing: Mild hearing decrease. Neck: No injury. Breast: Cancer. Cardiac: HTN, HLD. Pulmonary: No COPD. GI: Dysphagia. Urinary/genital: UTI. Endocrinologic: No cousin face, craniofacial dysmorphism, polydactyly. Skeletomuscular: Generalized weakness. Neurological: see HP. Psychiatric: Denies drug use/abuse. Otherwise, not -cxfor review of systems. PHYSICAL EXAMINATION: General appearance is in subacute distress. HEENT: Normocephalic and nontraumatic. Eyes, nose, ears, and throat are unremarkable. Neck is supple. No lymphadenopathy. No crepitus. Cardiovascular: S1, S2, regular rate and rhythm. Pulmonary: Clear to auscultation bilaterally. Abdomen: Bowel sounds are positive. Abdomen is soft, nontender, and nondistended. Extremities: No rash, lesions, or edema. No restriction of range of motion NEUROLOGICAL EXAMINATION: Awake. Not fully oriented to time, but knows place and person. PERRL. EOMI. CN: no focal findings. Muscle tone: within normal. Muscle strength: 4 DTR: 1-2 Plantar reflex: Neutral response bilaterally Gait: not examined in bed. Sensory exam: no abnormal findings. No cerebellar signs elicited. F-T-N test not performed due to not follow commands. Objective Objective Vital Signs Date Time Temp Pulse Resp B/P (MAP) Pulse Ox O2 Delivery O2 Flow Rate FiO2 10/14/16 10:30 99.3 94 18 110/70 (83) 95 Room Air 99.3 Intake and Output 10/14/16 07:00 Intake Total 1909 ml Output Total 100 ml Balance 1809 ml IV Total 1909 ml Output Urine Total 100 ml Vitals Signs Vitals VS - Last 72 Hours, by Label Date Time Temp Pulse Resp B/P (MAP) Pulse Ox O2 Delivery O2 Flow Rate FiO2 10/14/16 10:30 99.3 94 18 110/70 (83) 95 Room Air 99.3 10/14/16 08:00 Room Air 10/14/16 07:34 98.8 91 18 120/69 (86) 96 Room Air 98.8 10/13/16 23:00 98.1 104 18 129/77 (94) 96 Room Air 98.1 10/13/16 20:16 20 Room Air 10/13/16 19:44 20 Room Air 10/13/16 19:32 Room Air 10/13/16 19:00 99.8 96 20 128/70 (89) 97 Room Air 99.8 10/13/16 15:37 100.0 100 18 109/68 (82) 95 Room Air 100.0 10/13/16 11:25 100.2 93 16 107/57 (74) 95 Room Air 100.2 10/13/16 08:00 Room Air 10/13/16 07:37 Room Air 10/13/16 07:10 124/63 (83) 10/13/16 07:00 98.1 95 18 51/25 (34) 94 Room Air 98.1 Laboratory Laboratory Laboratory Tests Test 10/13/16 14:35 10/13/16 17:15 10/14/16 05:15 Vitamin B12 Level > 2000 pg/mL (247-911) 25-Hydroxy Vitamin D Total 47.7 ng/mL (30.0-100.0) Thyroid Stimulating Hormone (TSH) 0.744 uIU/mL (0.358-3.74) Urine Color Yellow Urine Clarity Cloudy Urine pH 5.5 Urine Specific [place] >=1.030 Urine Protein Negative mg/dL (NEG-TRACE) Urine Glucose (UA) Negative mg/dL (NEG) Urine Ketones (Stick) Negative mg/dL (NEG) Urine Blood Negative (NEG) Urine Nitrite Negative (NEG) Urine Bilirubin Negative (NEG) Urine Urobilinogen Dipstick 0.2 mg/dL (0.2 mg/dL) Urine Leukocyte Esterase Negative (NEG) Urine RBC 0 /HPF (0-2) Urine WBC Occ /HPF (0-4) Urine Squamous Epithelial Cells Occ /LPF Urine Amorphous Sediment Present /HPF Urine Bacteria 0 /HPF (0-FEW) Urine Hyaline Casts Occasional /HPF Urine Mucus Mod /LPF White Blood Count 6.5 x10^3/uL (4.0-11.0) Red Blood Count 4.04 x10^6/uL (3.50-5.40) Hemoglobin 11.4 g/dL (12.0-15.5) Hematocrit 34.3 % (36.0-47.0) Mean Corpuscular Volume 85 fL (79-100) Mean Corpuscular Hemoglobin 28 pg (25-35) Mean Corpuscular Hemoglobin Concent 33 g/dL (31-37) Red Cell Distribution Width 17.0 % (11.5-14.5) Platelet Count 312 x10^3/uL (140-400) Sodium Level 129 mmol/L (136-145) Potassium Level 4.8 mmol/L (3.5-5.1) Chloride Level 97 mmol/L (98-107) Carbon Dioxide Level 25 mmol/L (21-32) Anion Gap 7 (6-14) Blood Urea Nitrogen 13 mg/dL (7-20) Creatinine 0.5 mg/dL (0.6-1.0) Estimated GFR (Cockcroft-Gault) 121.6 BUN/Creatinine Ratio 26 (6-20) Glucose Level 119 mg/dL (70-99) Calcium Level 8.9 mg/dL (8.5-10.1) Total Bilirubin 0.6 mg/dL (0.2-1.0) Aspartate Amino Transf (AST/SGOT) 20 U/L (15-37) Alanine Aminotransferase (ALT/SGPT) 12 U/L (14-59) Alkaline Phosphatase 74 U/L (46-116) Total Protein 5.4 g/dL (6.4-8.2) Albumin 2.2 g/dL (3.4-5.0) Albumin/Globulin Ratio 0.7 (1.0-1.7) Procalcitonin < 0.10 ng/mL (0.00-0.10) Medication Medications Current Medications Acetaminophen (Acetaminophen Supp) 650 mg PRN Q4HRS PRN HI FEVER Last administered on 10/14/16 10:57; Start 10/14/16 at 10:45 Fluconazole/ Sodium Chloride 50 ml @ 100 mls/hr Q24H IV Last administered on 16:51; Start 10/13/16 at 16:00 Gadobutrol (Gadavist) 5 mmol 1X ONCE IV Last administered on 10/13/16 19:09; Start 10/13/16 at 18:45; Stop 10/13/16 at 18:46; Status DC Info (Do NOT chart on this entry -- for MONITORING) 1 each PRN DAILY PRN MC SEE COMMENTS; Start 10/13/16 at 16:00; Stop 10/15/16 at 15:59 Iohexol (Omnipaque 300 Mg/ml) 75 ml 1X ONCE IV Last administered on 10/13/16 16:41; Start 10/13/16 at 16:00; Stop 10/13/16 at 16:01; Status DC Potassium Chloride/Dextrose/ Sod Cl 1,000 ml @ 80 mls/hr [id number] IV Last administered on 10/14/16 10:58; Start 10/14/16 at 10:45 Comment Review of Relevant I have reviewed the following items meredith (where applicable) has been applied. JAYANT URENA MD Oct 14, 2016 12:19
[2016-10-14] MEDS ORDERED: VANCOMYCIN 1.25 GM in IV NORMAL SALINE 250ML 250 ML IV ONE (13:45)
--- NOTE | 2016-10-14 14:04 | PDOC ---
Subjective: Subjective: Does not want to eat because of "fear" Objective: Vital Signs: Vital Signs Date Time Temp Pulse Resp B/P (MAP) Pulse Ox O2 Delivery O2 Flow Rate FiO2 10/14/16 10:30 99.3 94 18 110/70 (83) 95 Room Air 99.3 Labs: Laboratory Tests Test 10/13/16 14:35 10/13/16 17:15 10/14/16 05:15 Vitamin B12 Level > 2000 pg/mL (247-911) 25-Hydroxy Vitamin D Total 47.7 ng/mL (30.0-100.0) Thyroid Stimulating Hormone (TSH) 0.744 uIU/mL (0.358-3.74) Urine Color Yellow Urine Clarity Cloudy Urine pH 5.5 Urine Specific [place] >=1.030 Urine Protein Negative mg/dL (NEG-TRACE) Urine Glucose (UA) Negative mg/dL (NEG) Urine Ketones (Stick) Negative mg/dL (NEG) Urine Blood Negative (NEG) Urine Nitrite Negative (NEG) Urine Bilirubin Negative (NEG) Urine Urobilinogen Dipstick 0.2 mg/dL (0.2 mg/dL) Urine Leukocyte Esterase Negative (NEG) Urine RBC 0 /HPF (0-2) Urine WBC Occ /HPF (0-4) Urine Squamous Epithelial Cells Occ /LPF Urine Amorphous Sediment Present /HPF Urine Bacteria 0 /HPF (0-FEW) Urine Hyaline Casts Occasional /HPF Urine Mucus Mod /LPF White Blood Count 6.5 x10^3/uL (4.0-11.0) Red Blood Count 4.04 x10^6/uL (3.50-5.40) Hemoglobin 11.4 g/dL (12.0-15.5) Hematocrit 34.3 % (36.0-47.0) Mean Corpuscular Volume 85 fL (79-100) Mean Corpuscular Hemoglobin 28 pg (25-35) Mean Corpuscular Hemoglobin Concent 33 g/dL (31-37) Red Cell Distribution Width 17.0 % (11.5-14.5) Platelet Count 312 x10^3/uL (140-400) Sodium Level 129 mmol/L (136-145) Potassium Level 4.8 mmol/L (3.5-5.1) Chloride Level 97 mmol/L (98-107) Carbon Dioxide Level 25 mmol/L (21-32) Anion Gap 7 (6-14) Blood Urea Nitrogen 13 mg/dL (7-20) Creatinine 0.5 mg/dL (0.6-1.0) Estimated GFR (Cockcroft-Gault) 121.6 BUN/Creatinine Ratio 26 (6-20) Glucose Level 119 mg/dL (70-99) Calcium Level 8.9 mg/dL (8.5-10.1) Total Bilirubin 0.6 mg/dL (0.2-1.0) Aspartate Amino Transf (AST/SGOT) 20 U/L (15-37) Alanine Aminotransferase (ALT/SGPT) 12 U/L (14-59) Alkaline Phosphatase 74 U/L (46-116) Total Protein 5.4 g/dL (6.4-8.2) Albumin 2.2 g/dL (3.4-5.0) Albumin/Globulin Ratio 0.7 (1.0-1.7) Procalcitonin < 0.10 ng/mL (0.00-0.10) Physical Exam: Physical Exam: GEN: NAD HEENT: Atraumatic LUNGS: CTAB HEART: RRR ABD: NABS, S/ND/NT EXTREMITY: No edema SKIN: No rashes, no jaundice NEURO/PSYCH: awake, doesn't participate in discussion Assessment & Plan: Assessment : A/P: A/P: Psych issues/?cognitive impairment, refusing medications and PO intake Weakness ?globus/odynophagia -h/o "fear of choking" Polymyositis -previously on steroids, now methotrexate Plan: She and her state that her swallowing issues are psych related. She has apprently already been evaluated by psych during another hosp admission. Continue IV antifungals for now. Dr murdock returns Sunday Problems: JASBIR COLE MD Oct 14, 2016 14:04
[2016-10-14] MEDS: VANCOMYCIN PER PHARMACY MC PRN (14:09)
[2016-10-14] MEDS: PIPERACILLIN/TAZOBACTAM 3.375 GM in IV NORMAL SALINE 50ML 50 ML IV SCH ×3 (14:12→23:06)
[2016-10-14 14:40] VITALS: BP 94/57
[2016-10-14] MEDS: FLUCONAZOLE 100MG/50ML PREMIX 50 ML IV SCH (16:42)
[2016-10-14 19:33] VITALS: BP 93/50
[2016-10-14] MEDS: fentaNYL PF VIAL 100 MCG/2 ML VIAL IV PRN (22:24)
[2016-10-14 23:04] VITALS: BP 110/74
--- NOTE | 2016-10-15 00:42 | CONS ---
DATE OF CONSULTATION: 10/14/2016 REASON FOR CONSULTATION: Polymyositis and elevated sed rate, CRP. REQUESTING PHYSICIAN: Dr. Linton. HISTORY OF PRESENT ILLNESS: The patient is a 71-year-old female with past medical history of polymyositis, managed by Dr. Moses in [place], was living independently up to 5 months ago. The patient is very, very poor historian, so the history was obtained by reviewing the chart. Then, she had psychotic breakdown and diagnosed with bipolar disorder, ivan. She was followed by psychiatrist and was taking the medication. Unfortunately, her status declined and she was admitted to the skilled nursing. From that, she was hospitalized at [facility] for dehydration and then finally transferred to the [facility] at [facility]. She did continue not to eat or drink. She had developed renal abnormalities as well as electrolyte imbalance, so she was transferred to the [facility]. She is also found to have an elevated sed rate and CRP. So for further evaluation and management, Rheumatology consultation has been requested. The patient denies any joint pain, joint swelling, stiffness, muscular pain or muscular weakness. PAST MEDICAL HISTORY: Polymyositis treated with chronic methotrexate injection, staphylococcus infection of the left hip prosthesis, septic arthritis of the right shoulder, breast cancer, hypertension, cataracts, depression, bipolar and anxiety disorders. PAST SURGICAL HISTORY: Left hip replacement, left mastectomy. SOCIAL HISTORY: She lives in a skilled nursing. She denies tobacco smoking or alcohol abuse. FAMILY HISTORY: Negative for any autoimmune disease. ALLERGIES: TO STATINS AND CODEINE. MEDICATIONS: I have reviewed the list of medication as per chart. REVIEW OF SYSTEMS: Again, the patient is a very poor historian and she denies any joint pain, swelling, muscular pain or stiffness. PHYSICAL EXAMINATION: GENERAL: She is awake, alert and oriented, not in acute distress. VITAL SIGNS: Reveal temperature 99.3, pulse 74, respiration 18. SKIN: She does not have any rash. HEENT: Normocephalic, atraumatic head. No oral ulcerations. NECK: Supple. HEART: S1, S2 regular. LUNGS: Clear to auscultation anteriorly. EXTREMITIES: No pitting edema. MUSCULOSKELETAL: Examination did not reveal any joint tenderness or any active synovitis or any joint deformities. NEUROLOGIC: On gross examination, she is not following the commands, so difficulty to check the muscular strength. LABORATORY DATA: I have reviewed her laboratory test results and her sed rate is 67, WBC 6.5, hemoglobin 11.4, creatinine is 0.5, C-reactive protein is 125, CPK is 20. Urinalysis is negative for the protein and blood. ASSESSMENT: 1. Polymyositis. 2. Disease-modifying antirheumatic drug monitoring. 3. Elevated sedimentation rate. 4. Elevated C-reactive protein. 5. Fever. 6. History of breast cancer. Although she carries diagnosis of polymyositis, clinically and by her laboratory test, there is no active polymyositis. Because of the fever and elevated sed rate, CRP, most likely she has some infection etiology. So, I will discontinue her methotrexate at this time. If all this workup is negative and no specific etiology is found and I would recommend to use the low dose prednisone 10 mg every day for possible polymyalgia rheumatica. I am not requesting any further test at this time. Thank you for allowing me to participate in her care. If you have any question, please do not hesitate to contact me. GAEL DISLA MD DR: GINNA/ben JOB#: [id number] / [id number] VITO
[2016-10-15 03:18] VITALS: BP 116/73
--- NOTE | 2016-10-15 04:29 | PN ---
DATE: 10/14/2016 SUBJECTIVE: The patient is resting slightly propped up in bed, in no apparent distress. She is definitely more confused today; however, she denied any complaints. She continued to refuse to eat and drink. She was started yesterday on Diflucan IV empirically to treat possible esophageal candidiasis as she refused to take the nystatin suspension to swish and swallow. She was evaluated by the Infectious Disease specialist as well as neurologist and the thermodynamics teacher. So far, her brain MRI was unremarkable and CT scans of the chest, abdomen and pelvis were also unremarkable. PHYSICAL EXAMINATION: GENERAL: When I examined her today, she was resting slightly propped up in bed, in no apparent respiratory distress, slightly pale. No jaundice, cyanosis or thyromegaly. No jugular venous distention. No limb edema. VITAL SIGNS: Her heart rate was 91, blood pressure was 120/69, temperature was 98.9, respiratory rate was 18 and oxygen saturation was 96% on room air. HEAD, EYES, EARS, NOSE AND THROAT: Showed normocephalic, atraumatic. NECK: Supple. HEART: Showed normal first and second heart sounds with no gallop, rub or murmur. CHEST: Clear to auscultation. No crepitation or rhonchi. ABDOMEN: Distended, soft, nontender. NEUROLOGIC: She is awake, alert, but extremely confused today. All her cranial nerves intact. She moves extremities without difficulty, although she is mostly bedbound, chair bound. Her intake over the last 24 hours was 1900, no output was recorded. LABORATORY DATA: White cell count this morning was 6500, hemoglobin 11, hematocrit 34, MCV 85 and platelet count of 312,000. Her chemistry showed the serum sodium has dropped down to 129, potassium improved to 4.8, chloride 97, bicarbonate 25, anion gap of 7, BUN 13, creatinine 0.5, estimated GFR was 121 mL per minute. Her glucose was 119, calcium was 8.9. Total bilirubin, AST, ALT, alkaline phosphatase were normal. Total protein was 5.4, albumin was 2.2. Her vitamin B12 was more than 2000 pg/mL, 25-hydroxy vitamin D was 47.7, procalcitonin was only less than 0.10 and TSH was normal at 0.744. ASSESSMENT: 1. Anorexia versus dysphagia, odynophagia due to esophageal candidiasis ____ stricture or polymyositis. 2. Polymyositis for which she was on steroids; however, she is currently on methotrexate 25 mg subcutaneously once a week. 3. Hypercalcemia. I did send the intact PTH at [facility]. 4. 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 5. She had a history of breast cancer, status post left mastectomy; however, her total body bone scan done at [facility] was unremarkable. PLAN: To continue with IV fluids for now, continue with Diflucan and proton pump inhibitor, await the rest of the lab results. She has hyponatremia so that I changed her IV fluid to D5 half normal with 20 mEq of potassium chloride and check also her creatinine phosphokinase. ARVIN SALMON MD DR: DILSHAD/ben JOB#: [id number] / [id number]
[2016-10-15] MEDS: POLYVINYL ALCOHOL 1.4% OPHTH SOLUTION 15ML BOTTLE. OU SCH ×2 (05:34→16:51)
[2016-10-15] MEDS: PIPERACILLIN/TAZOBACTAM 3.375 GM in IV NORMAL SALINE 50ML 50 ML IV SCH ×2 (05:34→11:59)
[2016-10-15 06:39] LABS: CALCIUM 8.5 mg/dL (8.5-10.1); CREATININE 0.5 mg/dL (0.6-1.0); GFR 121.6; MAGNESIUM 1.5 mg/dL (1.8-2.4); POTASSIUM 4.4 mmol/L (3.5-5.1)
[2016-10-15 07:15] VITALS: BP 106/67
[2016-10-15] MEDS: PANTOPRAZOLE 40 MG TABLET.DR. PO SCH (07:30)
[2016-10-15] MEDS: ASPIRIN CHEWABLE 81 MG TABLET. PO SCH (08:00)
[2016-10-15] MEDS: XIIDRA OU SCH ×2 (08:33→20:51)
[2016-10-15] MEDS: MULTIVITAMIN with MINERAL TABLET. PO SCH (09:00)
[2016-10-15] MEDS: FOLIC ACID 1 MG TABLET. PO SCH (09:00)
[2016-10-15] MEDS: SERTRALINE 50 MG TABLET. PO SCH (09:00)
[2016-10-15] MEDS: EZETIMIBE 10 MG TABLET. PO SCH (09:00)
[2016-10-15] MEDS: OLANZapine 2.5 MG TABLET PO SCH (09:00)
[2016-10-15] MEDS: clonazePAM 0.5 MG TABLET PO SCH ×2 (09:00→19:14)
[2016-10-15] MEDS: amLODIPine BESYLATE 10 MG TABLET PO SCH (09:00)
[2016-10-15] MEDS: THIAMINE 100 MG TABLET. PO SCH (09:00)
[2016-10-15] MEDS ORDERED: MAGNESIUM SULFATE 2GM 50 ML IV ONE (10:00)
--- NOTE | 2016-10-15 10:01 | PDOC ---
Infectious Disease Note Subjective Subjective Confused No fever last 24 hours ROS ROS Denies all ROS Vital Sign Vital Signs Vital Signs Date Time Temp Pulse Resp B/P (MAP) Pulse Ox O2 Delivery O2 Flow Rate FiO2 10/15/16 08:00 Room Air 10/15/16 07:15 97.9 91 20 106/67 (80) 94 97.9 Physical Exam PHYSICAL EXAM GENERAL: Lying down, awake, calm, NAD HENT: Oral cavity dry LUNGS: Clear to auscultation. HEART: Normal S1 and S2. ABDOMEN: Nondistended. Bowel sounds are present, soft, and nontender. EXTREMITIES: No gross edema or cyanosis. SKIN: Without rash. Left hip without warmth, redness, or swelling. NEUROLOGIC: Confused Labs Lab Laboratory Tests Test 10/15/16 06:00 Sodium Level 131 mmol/L (136-145) Potassium Level 4.4 mmol/L (3.5-5.1) Chloride Level 100 mmol/L (98-107) Carbon Dioxide Level 23 mmol/L (21-32) Anion Gap 8 (6-14) Blood Urea Nitrogen 9 mg/dL (7-20) Creatinine 0.5 mg/dL (0.6-1.0) Estimated GFR (Cockcroft-Gault) 121.6 Glucose Level 92 mg/dL (70-99) Calcium Level 8.5 mg/dL (8.5-10.1) Magnesium Level 1.5 mg/dL (1.8-2.4) Creatine Kinase 17 U/L (26-192) Micro BLOOD CULTURE Preliminary NO GROWTH AFTER 1 DAY Objective Assessment h/o staph infection of left hip prosthesis, on chronic Keflex Fever, better Dysphagia Encephalopathy Immunosuppression due to methotrexate for polymyositis. DMARD now d/c'd h/o breast cancer on surveillance h/o MRSA Plan Plan of Care Vanc/fluconazole D/c Zosyn Overread CT pelvis R/o infection with lucency on hip film. May need hip aspiration Procalcitonin <0.10 BC NGTD Await EGD and possible gastrostomy tube placement Monitor lab values Attending Co-Sign Attending Co-Sign The patient was seen and interviewed as well as examined at the bedside. The chart was reviewed. The case was discussed. Agree with the plan of care. YANE MOTTA APRN Oct 15, 2016 10:01 BOBBY PERERA MD Oct 15, 2016 15:41
--- NOTE | 2016-10-15 10:53 | RAD ---
HIP LEFT 2 VIEW Clinical Indication: Prosthesis and fever Comparison: CT chest abdomen and pelvis with contrast, prior day Findings: There is left hip arthroplasty. Alignment is anatomic. There are 2 cerclage wires of the femoral stem. No lucency at the tip of the femoral stem. Then lucency along the proximal portion laterally measures 1-2 mm. No acute fracture is seen. IMPRESSION: No acute bone abnormality.
[2016-10-15 11:10] VITALS: BP 123/80
[2016-10-15] MEDS: POTASSIUM CL 20MEQ D5-0.45NACL 1,000 ML IV SCH (11:21)
[2016-10-15] MEDS: fentaNYL PF VIAL 100 MCG/2 ML VIAL IV PRN (11:22)
[2016-10-15] MEDS: VANCOMYCIN PER PHARMACY MC PRN (12:41)
--- NOTE | 2016-10-15 13:34 | PDOC ---
PROGRESS NOTES Assessment Assessment Dysphagia. Weakness, generalized. Left side breast cancer, s/p mastectomy and chemo. HTN HLD OA Bipolar disorder. Weight loss. No evidence of acute CVA or brain metastatic disease this time. RECOMMENDATIONS/PLAN: Lab: see orders, including MG panel. Please consult GI as well. Speech and swallow evaluation. Treat medical diseases. OT/PT Discussed with her sister and daughter in all detail at bedside on 10/15/16. HISTORY OF THE PRESENT ILLNESS: 71-y-old female patient with Hx of breast cancer and other medical diseases has been having symptoms of dysphagia chronically but now is worse. She always afraid chocking when she swallows per her sister. She had left side breast cancer in 1997 and received mastectomy and chemo. 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 PAST SURGERY HISTORY: Left breast mastectomy. ALLERGY: Reviewed. MEDICATIONS: Refer to MAR REVIEW OF SYSTEMS: Constitutional: Mild malnutrition. Head: No traumatic brain or head injury. Skin: No edema, or rash. Ear: No infection. Eyes: No vision loss or color blindness. Nose: No bleeding or purulent discharges. Hearing: Mild hearing decrease. Neck: No injury. Breast: Cancer. Cardiac: HTN, HLD. Pulmonary: No COPD. GI: Dysphagia. Urinary/genital: UTI. Endocrinologic: No cousin face, craniofacial dysmorphism, polydactyly. Skeletomuscular: Generalized weakness. Neurological: see HP. Psychiatric: Denies drug use/abuse. Otherwise, not [id number] review of systems. PHYSICAL EXAMINATION: General appearance is in subacute distress. HEENT: Normocephalic and nontraumatic. Eyes, nose, ears, and throat are unremarkable. Neck is supple. No lymphadenopathy. No crepitus. Cardiovascular: S1, S2, regular rate and rhythm. Pulmonary: Clear to auscultation bilaterally. Abdomen: Bowel sounds are positive. Abdomen is soft, nontender, and nondistended. Extremities: No rash, lesions, or edema. No restriction of range of motion NEUROLOGICAL EXAMINATION: Awake. Not fully oriented to time, but knows place and person. PERRL. EOMI. CN: no focal findings. Muscle tone: within normal. Muscle strength: 4 DTR: 1-2 Plantar reflex: Neutral response bilaterally Gait: not examined in bed. Sensory exam: no abnormal findings. No cerebellar signs elicited. F-T-N test not performed due to not follow commands. Objective Objective Vital Signs Date Time Temp Pulse Resp B/P (MAP) Pulse Ox O2 Delivery O2 Flow Rate FiO2 10/15/16 11:22 Room Air 10/15/16 11:10 97.5 87 20 123/80 (94) 95 97.5 Intake and Output 10/15/16 07:00 Intake Total 2000 ml Balance 2000 ml Intake Oral 0 ml IV Total 2000 ml # Voids 4 # Bowel Movements 5 Vitals Signs Vitals VS - Last 72 Hours, by Label Date Time Temp Pulse Resp B/P (MAP) Pulse Ox O2 Delivery O2 Flow Rate FiO2 10/15/16 11:22 Room Air 10/15/16 11:10 97.5 87 20 123/80 (94) 95 Room Air 97.5 10/15/16 08:00 Room Air 10/15/16 07:15 97.9 91 20 106/67 (80) 94 Room Air 97.9 10/15/16 03:18 97.9 84 20 116/73 (87) 95 Room Air 97.9 10/14/16 23:04 97.9 90 20 110/74 (86) 95 Room Air 97.9 10/14/16 22:50 16 96 Room Air 10/14/16 22:24 20 96 Room Air 10/14/16 19:33 98.3 81 20 93/50 (64) 96 Room Air 98.3 10/14/16 19:05 Room Air 10/14/16 14:40 97.5 82 18 94/57 (69) 97 Room Air 97.5 10/14/16 10:30 99.3 94 18 110/70 (83) 95 Room Air 99.3 10/14/16 08:00 Room Air 10/14/16 07:34 98.8 91 18 120/69 (86) 96 Room Air 98.8 Laboratory Laboratory Laboratory Tests Test 10/15/16 06:00 Sodium Level 131 mmol/L (136-145) Potassium Level 4.4 mmol/L (3.5-5.1) Chloride Level 100 mmol/L (98-107) Carbon Dioxide Level 23 mmol/L (21-32) Anion Gap 8 (6-14) Blood Urea Nitrogen 9 mg/dL (7-20) Creatinine 0.5 mg/dL (0.6-1.0) Estimated GFR (Cockcroft-Gault) 121.6 Glucose Level 92 mg/dL (70-99) Calcium Level 8.5 mg/dL (8.5-10.1) Magnesium Level 1.5 mg/dL (1.8-2.4) Creatine Kinase 17 U/L (26-192) Microbiology 10/13/16 Blood Culture - Preliminary, Resulted NO GROWTH AFTER 1 DAY Medication Medications Current Medications Magnesium Sulfate/ Dextrose 50 ml @ 25 mls/hr 1X ONCE IV Last administered on 10/15/16 11:20; Start 10/15/16 at 10:00; Stop 10/15/16 at 11:59; Status DC Vancomycin HCl 1 each 1X ONCE MC ; Start 10/16/16 at 14:30; Stop 10/16/16 at 14 :31 Vancomycin HCl 1.25 gm/Sodium Chloride 250 ml @ 166.667 mls/hr 1X ONCE IV Last administered on 10/14/16 15:07; Start 10/14/16 at 13:45; Stop 10/14/16 at 15:14; Status DC Vancomycin HCl 750 mg/Sodium Chloride 250 ml @ 250 mls/hr Q24H IV ; Start 10/15 at 15:00 Comment Review of Relevant I have reviewed the following items meredith (where applicable) has been applied. JAYANT URENA MD Oct 15, 2016 13:34
[2016-10-15 14:40] VITALS: BP 109/64
[2016-10-15] MEDS: VANCOMYCIN 750 MG in IV NORMAL SALINE 250ML 250 ML IV SCH (15:34)
[2016-10-15] MEDS: FLUCONAZOLE 100MG/50ML PREMIX 50 ML IV SCH (15:34)
[2016-10-15 19:56] VITALS: BP 116/78
[2016-10-15 22:59] VITALS: BP 120/75
[2016-10-16] MEDS: POTASSIUM CL 20MEQ D5-0.45NACL 1,000 ML IV SCH ×2 (01:24→12:45)
--- NOTE | 2016-10-16 01:32 | PN ---
DATE: 10/15/2016 SUBJECTIVE: The patient is resting, slightly propped up, sleeping comfortably in no apparent distress. She continued to be confused; however, the nursing staff did not voice any concern and stated that she had night. She apparently was seen by Dr. Dalal and he recommended to discontinue the methotrexate given that there are no active signs of polymyositis. PHYSICAL EXAMINATION: GENERAL: On examining her this morning, she looked well and was clearly in no apparent distress. She is pale, cachectic, but no jaundice, cyanosis, or thyromegaly. No jugular venous distention. No limb edema. VITAL SIGNS: Her heart rate was 91, blood pressure was 106/67, temperature was 97.9, respiratory rate 20, and oxygen saturation was 94%. The rest of clinical examination is unremarkable, has not really changed. Her intake over the last 24 hours was 1900, and no output recorded. LABORATORY DATA: This morning showed the serum sodium has risen to 131, potassium 4.4, chloride 100, bicarbonate 23, anion gap of 8, BUN 9, creatinine 0.5, estimated GFR was 121 mL per minute. Her glucose was 92, calcium was 8.5, magnesium was 1.5. Her total bilirubin, AST, ALT, alkaline phosphatase were normal. CK was only 17, total protein was 5.4, albumin 2.2. Her white cell count was 6500, hemoglobin 11.4, hematocrit 34, MCV 85 and platelet count of 312,000. ASSESSMENT: 1. Severe anorexia versus dysphagia due to polymyositis versus esophageal stricture. 2. Polymyositis, for which she was on methotrexate, her CK was only 17. Her methotrexate was discontinued by Dr. Dalal. 3. Hypercalcemia, probably because of her immobility as her intact PTH was only 15. 4. 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 PLAN: To continue with IV fluids for now. I will replenish her magnesium with 2 grams IV and await decision by the Gastroenterology regarding upper GI endoscopy and gastrostomy tube placement. ARVIN SALMON MD DR: DILSHAD/ben JOB#: [id number] / [id number]
[2016-10-16 03:51] VITALS: BP 119/75
[2016-10-16] MEDS: ONDANSETRON PF 4 MG/2 ML VIAL. IV PRN (05:39)
[2016-10-16] MEDS: POLYVINYL ALCOHOL 1.4% OPHTH SOLUTION 15ML BOTTLE. OU SCH ×2 (05:39→18:03)
[2016-10-16] MEDS: PANTOPRAZOLE 40 MG TABLET.DR. PO SCH (06:02)
[2016-10-16 07:00] VITALS: BP 122/72
[2016-10-16] MEDS: ASPIRIN CHEWABLE 81 MG TABLET. PO SCH (08:00)
[2016-10-16 08:04] LABS: CALCIUM 8.9 mg/dL (8.5-10.1); CREATININE 0.4 mg/dL (0.6-1.0); GFR 157.3; MAGNESIUM 1.7 mg/dL (1.8-2.4); POTASSIUM 4.5 mmol/L (3.5-5.1)
[2016-10-16] MEDS: XIIDRA OU SCH ×2 (08:55→20:20)
[2016-10-16] MEDS: FOLIC ACID 1 MG TABLET. PO SCH (08:56)
[2016-10-16] MEDS: THIAMINE 100 MG TABLET. PO SCH (09:00)
[2016-10-16] MEDS: MULTIVITAMIN with MINERAL TABLET. PO SCH (09:00)
[2016-10-16] MEDS: amLODIPine BESYLATE 10 MG TABLET PO SCH (09:00)
[2016-10-16] MEDS: OLANZapine 2.5 MG TABLET PO SCH (09:00)
[2016-10-16] MEDS: clonazePAM 0.5 MG TABLET PO SCH ×2 (09:00→20:20)
[2016-10-16] MEDS: SERTRALINE 50 MG TABLET. PO SCH (09:00)
[2016-10-16] MEDS: EZETIMIBE 10 MG TABLET. PO SCH (09:00)
--- NOTE | 2016-10-16 09:00 | PDOC ---
Infectious Disease Note Subjective Subjective Confused. Jaguar hurts with her polymyositis today No fever last 24 hours ROS ROS GEN: Denies fevers, chills, sweats HEENT: Denies blurred vision, sore throat CV: Denies chest pain RESP: Denies shortness of air, cough GI: Denies n/v/d NEURO: Denies confusion, dizziness Vital Sign Vital Signs Vital Signs Date Time Temp Pulse Resp B/P (MAP) Pulse Ox O2 Delivery O2 Flow Rate FiO2 10/16/16 03:51 97.7 88 20 119/75 (90) 95 Room Air 97.7 Physical Exam PHYSICAL EXAM GENERAL: Lying down, awake, calm, NAD HENT: Oral cavity dry LUNGS: Clear to auscultation. HEART: Normal S1 and S2. ABDOMEN: Nondistended. Bowel sounds are present, soft, and nontender. EXTREMITIES: No gross edema or cyanosis. SKIN: Without rash. Left hip without warmth, redness, or swelling. NEUROLOGIC: Confused Labs Lab Laboratory Tests Test 10/16/16 07:30 Sodium Level 134 mmol/L (136-145) Potassium Level 4.5 mmol/L (3.5-5.1) Chloride Level 100 mmol/L (98-107) Carbon Dioxide Level 26 mmol/L (21-32) Anion Gap 8 (6-14) Blood Urea Nitrogen 4 mg/dL (7-20) Creatinine 0.4 mg/dL (0.6-1.0) Estimated GFR (Cockcroft-Gault) 157.3 Glucose Level 90 mg/dL (70-99) Calcium Level 8.9 mg/dL (8.5-10.1) Magnesium Level 1.7 mg/dL (1.8-2.4) Objective Assessment h/o staph infection of left hip prosthesis, on chronic Keflex Fever Dysphagia Immunosuppression on methotrexate for polymyositis h/o breast cancer on surveillance h/o MRSA Encephalopathy Plan Plan of Care Vanc/fluconazole Await Overread CT pelvis R/o infection with lucency on hip film. May need hip aspiration - ortho eval. If no sign of infection will need steroids Procalcitonin <0.10 BC NGTD Await EGD and possible gastrostomy tube placement Monitor lab values BOBBY PERERA MD Oct 16, 2016 09:00
--- NOTE | 2016-10-16 09:11 | PDOC ---
PROGRESS NOTES Assessment Dysphagia. Weakness, generalized. Left side breast cancer, s/p mastectomy and chemo. Bipolar disorder. No evidence of acute CVA or brain metastatic disease Polymyositis Plan Treat medical diseases GI following Speech following Subjective complains of whole body pain Objective Vital Signs Date Time Temp Pulse Resp B/P (MAP) Pulse Ox O2 Delivery O2 Flow Rate FiO2 10/16/16 07:00 98.9 78 20 122/72 (89) 95 Room Air 98.9 Intake and Output 10/16/16 07:00 Intake Total 2070 ml Balance 2070 ml Intake Oral 30 ml IV Total 2040 ml # Voids 6 # Bowel Movements 2 PHYSICAL EXAM Alert. Oriented to place and person. Does not know date. Ask bizarre questions, for instance whether I was born in [facility] PERRL. EOMI. CN: no focal findings. Muscle tone: normal. Muscle strength: 4/5 DTR: 1+ Plantar reflex: flexor Gait: not examined in bed. Sensory exam: no abnormal findings. No cerebellar signs elicited. Review of Relevant I have reviewed the following items meredith (where applicable) has been applied. Labs Laboratory Tests Test 10/15/16 06:00 10/16/16 07:30 Sodium Level 131 mmol/L (136-145) 134 mmol/L (136-145) Potassium Level 4.4 mmol/L (3.5-5.1) 4.5 mmol/L (3.5-5.1) Chloride Level 100 mmol/L (98-107) 100 mmol/L (98-107) Carbon Dioxide Level 23 mmol/L (21-32) 26 mmol/L (21-32) Anion Gap 8 (6-14) 8 (6-14) Blood Urea Nitrogen 9 mg/dL (7-20) 4 mg/dL (7-20) Creatinine 0.5 mg/dL (0.6-1.0) 0.4 mg/dL (0.6-1.0) Estimated GFR (Cockcroft-Gault) 121.6 157.3 Glucose Level 92 mg/dL (70-99) 90 mg/dL (70-99) Calcium Level 8.5 mg/dL (8.5-10.1) 8.9 mg/dL (8.5-10.1) Magnesium Level 1.5 mg/dL (1.8-2.4) 1.7 mg/dL (1.8-2.4) Creatine Kinase 17 U/L (26-192) Laboratory Tests Test 10/16/16 07:30 Sodium Level 134 mmol/L (136-145) Potassium Level 4.5 mmol/L (3.5-5.1) Chloride Level 100 mmol/L (98-107) Carbon Dioxide Level 26 mmol/L (21-32) Anion Gap 8 (6-14) Blood Urea Nitrogen 4 mg/dL (7-20) Creatinine 0.4 mg/dL (0.6-1.0) Estimated GFR (Cockcroft-Gault) 157.3 Glucose Level 90 mg/dL (70-99) Calcium Level 8.9 mg/dL (8.5-10.1) Magnesium Level 1.7 mg/dL (1.8-2.4) Microbiology 10/13/16 Blood Culture - Preliminary, Resulted NO GROWTH AFTER 2 DAYS Medications Current Medications Fentanyl Citrate (Fentanyl 2ml Vial) 25 mcg PRN Q4HRS PRN IV PAIN Last administered on 10/15/16 11:22; Start 10/12/16 at 18:30 Ondansetron HCl (Zofran) 4 mg PRN Q4HRS PRN IV NAUSEA/VOMITING Last administered on 10/16/16 05:39; Start 10/12/16 at 18:30 Potassium Chloride/Dextrose 1,000 ml @ 75 mls/hr [id number] IV Last administered on 10/12/16 22:36; Start 10/12/16 at 21:30; Stop 10/13/16 at 10:55; Status DC Acetaminophen (Tylenol) 650 mg PRN Q4HRS PRN PO FEVER; Start 10/12/16 at 18:45 Aspirin (Children'S Aspirin) 81 mg [id number] PO ; Start 10/13/16 at 08:00 Cephalexin HCl (Keflex) 500 mg BID PO ; Start 10/12/16 at 21:00; Stop 10/14/16 at 13:29; Status DC EZETIMIBE (Zetia) 10 mg DAILY PO ; Start 10/13/16 at 09:00 Folic Acid (Folic Acid) 1 mg DAILY PO ; Start 10/13/16 at 09:00 Methotrexate 25 mg [id number] SQ Last administered on 10/12/16 23:01; Start at 21:00; Stop 10/14/16 at 13:46; Status DC Multivitamins (Thera M Plus) 1 tab DAILY PO ; Start 10/13/16 at 09:00 Olanzapine (ZyPREXA) 2.5 mg DAILY PO ; Start 10/13/16 at 09:00 Artificial Tears (Artificial Tears) 1 drop [id number] OU Last administered on 05:39; Start 10/13/16 at 06:00 Sennosides (Senna) 8.6 mg PRN BID PRN PO CONSTIPATION; Start 10/12/16 at 19:15 Sertraline HCl (Zoloft) 50 mg DAILY PO ; Start 10/13/16 at 09:00 Thiamine Mononitrate (Vitamin B-1) 100 mg DAILY PO ; Start 10/13/16 at 09:00 Amlodipine Besylate (Norvasc) 10 mg DAILY PO ; Start 10/13/16 at 09:00 Clonazepam (KlonoPIN) 0.5 mg BID PO ; Start 10/12/16 at 21:00 Non-Formulary Medication 1 ea BID OU Last administered on 10/15/16 20:51; Start 10/12/16 at 21:00 Nystatin 5 ml [id number] ; Start 10/13/16 at 09:30; Stop 10/13/16 at 15:55; Status DC Pantoprazole Sodium (Protonix) 40 mg DAILYAC PO ; Start 10/13/16 at 09:30 Potassium Chloride 40 meq/ Dextrose 1,020 ml @ 100 mls/hr [id number] IV Last administered on 10/14/16 09:59; Start 10/13/16 at 11:30; Stop 10/14/16 at 10:35 ; Status DC Iohexol (Omnipaque 300 Mg/ml) 75 ml 1X ONCE IV Last administered on 10/13/16 16:41; Start 10/13/16 at 16:00; Stop 10/13/16 at 16:01; Status DC Info (Do NOT chart on this entry -- for MONITORING) 1 each PRN DAILY PRN MC SEE COMMENTS; Start 10/13/16 at 16:00; Stop 10/15/16 at 15:59; Status DC Fluconazole/ Sodium Chloride 50 ml @ 100 mls/hr Q24H IV Last administered on 15:34; Start 10/13/16 at 16:00 Gadobutrol (Gadavist) 5 mmol 1X ONCE IV Last administered on 10/13/16 19:09; Start 10/13/16 at 18:45; Stop 10/13/16 at 18:46; Status DC Potassium Chloride/Dextrose/ Sod Cl 1,000 ml @ 80 mls/hr [id number] IV Last administered on 10/16/16 01:24; Start 10/14/16 at 10:45 Acetaminophen (Acetaminophen Supp) 650 mg PRN Q4HRS PRN [place] FEVER Last administered on 10/14/16 10:57; Start 10/14/16 at 10:45 Piperacillin Sod/ Tazobactam Sod 3.375 gm/Sodium Chloride 50 ml @ 100 mls/hr Q6HRS IV Last administered on 10/15/16 11:59; Start 10/14/16 at 13:30; Stop at 15:41; Status DC Vancomycin HCl (Vanco Per Pharmacy) 1 each PRN DAILY PRN MC SEE COMMENTS Last administered on 10/15/16 12:41; Start 10/14/16 at 13:30 Vancomycin HCl 1.25 gm/Sodium Chloride 250 ml @ 166.667 mls/hr 1X ONCE IV Last administered on 10/14/16 15:07; Start 10/14/16 at 13:45; Stop 10/14/16 at 15:14; Status DC Vancomycin HCl 750 mg/Sodium Chloride 250 ml @ 250 mls/hr Q24H IV Last administered on 10/15/16 15:34; Start 10/15/16 at 15:00 Vancomycin HCl 1 each 1X ONCE MC ; Start 10/16/16 at 14:30; Stop 10/16/16 at 14 :31 Magnesium Sulfate/ Dextrose 50 ml @ 25 mls/hr 1X ONCE IV Last administered on 10/15/16 11:20; Start 10/15/16 at 10:00; Stop 10/15/16 at 11:59; Status DC Vitals/I & O Vital Sign - Last 24 Hours 10/15/16 10/15/16 10/15/16 10/15/16 11:10 11:22 14:40 19:10 Temp 97.5 97.5 97.5 97.5 Pulse 87 86 Resp 20 20 B/P (MAP) 123/80 (94) 109/64 (79) Pulse Ox 95 96 O2 Delivery Room Air Room Air Room Air Room Air 10/15/16 10/15/16 10/16/16 10/16/16 19:56 22:59 03:51 07:00 Temp 98.3 98.2 97.7 98.9 98.3 98.2 97.7 98.9 Pulse 87 77 88 78 Resp 18 20 20 20 B/P (MAP) 116/78 (91) 120/75 (90) 119/75 (90) 122/72 (89) Pulse Ox 95 96 95 95 O2 Delivery Room Air Room Air Room Air Room Air Intake and Output 10/15/16 10/15/16 10/16/16 15:00 23:00 07:00 Intake Total 1040 ml 30 ml 1000 ml Balance 1040 ml 30 ml 1000 ml MIGUEL FORD MD Oct 16, 2016 09:11
[2016-10-16] MEDS: fentaNYL PF VIAL 100 MCG/2 ML VIAL IV PRN (09:57)
[2016-10-16 11:00] VITALS: BP 122/72
--- NOTE | 2016-10-16 12:24 | PDOC ---
PROGRESS NOTES Subjective Subjective Denies any complain. Objective Objective Vital Signs Date Time Temp Pulse Resp B/P (MAP) Pulse Ox O2 Delivery O2 Flow Rate FiO2 10/16/16 11:00 98.4 77 20 122/72 (89) 95 Room Air 98.4 Intake and Output 10/16/16 07:00 Intake Total 2070 ml Balance 2070 ml Intake Oral 30 ml IV Total 2040 ml # Voids 6 # Bowel Movements 2 Physical Exam Heart: Regular rate, Normal S1, Normal S2, No murmurs Extremities: No clubbing, No cyanosis, No edema, No tenderness/swelling General: Alert, Cooperative, No acute distress Lungs: Clear to auscultation, Normal air movement MUSCULOSKELETAL: No joint tenderness, No deformity, No swelling, No muscular tenderness noted, Full range of motion without pain Skin: No rashes, No breakdown, No significant lesion Assessment Assessment 1. Polymyositis. 2. Disease-modifying antirheumatic drug monitoring. 3. Elevated sedimentation rate. 4. Elevated C-reactive protein. 5. Fever. 6. History of breast cancer Plan Plan of Care Cont. current evaluation for probable infection. If everything negative, then try Prednisone 10 mg. No active polymyositis with normal CPK. Comment Review of Relevant I have reviewed the following items meredith (where applicable) has been applied. Labs Laboratory Tests Test 10/15/16 06:00 10/16/16 07:30 Sodium Level 131 mmol/L (136-145) 134 mmol/L (136-145) Potassium Level 4.4 mmol/L (3.5-5.1) 4.5 mmol/L (3.5-5.1) Chloride Level 100 mmol/L (98-107) 100 mmol/L (98-107) Carbon Dioxide Level 23 mmol/L (21-32) 26 mmol/L (21-32) Anion Gap 8 (6-14) 8 (6-14) Blood Urea Nitrogen 9 mg/dL (7-20) 4 mg/dL (7-20) Creatinine 0.5 mg/dL (0.6-1.0) 0.4 mg/dL (0.6-1.0) Estimated GFR (Cockcroft-Gault) 121.6 157.3 Glucose Level 92 mg/dL (70-99) 90 mg/dL (70-99) Calcium Level 8.5 mg/dL (8.5-10.1) 8.9 mg/dL (8.5-10.1) Magnesium Level 1.5 mg/dL (1.8-2.4) 1.7 mg/dL (1.8-2.4) Creatine Kinase 17 U/L (26-192) Laboratory Tests Test 10/16/16 07:30 Sodium Level 134 mmol/L (136-145) Potassium Level 4.5 mmol/L (3.5-5.1) Chloride Level 100 mmol/L (98-107) Carbon Dioxide Level 26 mmol/L (21-32) Anion Gap 8 (6-14) Blood Urea Nitrogen 4 mg/dL (7-20) Creatinine 0.4 mg/dL (0.6-1.0) Estimated GFR (Cockcroft-Gault) 157.3 Glucose Level 90 mg/dL (70-99) Calcium Level 8.9 mg/dL (8.5-10.1) Magnesium Level 1.7 mg/dL (1.8-2.4) Microbiology 10/13/16 Blood Culture - Preliminary, Resulted NO GROWTH AFTER 2 DAYS Medications Current Medications Fentanyl Citrate (Fentanyl 2ml Vial) 25 mcg PRN Q4HRS PRN IV PAIN Last administered on 10/16/16 09:57; Start 10/12/16 at 18:30 Ondansetron HCl (Zofran) 4 mg PRN Q4HRS PRN IV NAUSEA/VOMITING Last administered on 10/16/16 05:39; Start 10/12/16 at 18:30 Potassium Chloride/Dextrose 1,000 ml @ 75 mls/hr [id number] IV Last administered on 10/12/16 22:36; Start 10/12/16 at 21:30; Stop 10/13/16 at 10:55; Status DC Acetaminophen (Tylenol) 650 mg PRN Q4HRS PRN PO FEVER; Start 10/12/16 at 18:45 Aspirin (Children'S Aspirin) 81 mg DAILYWBKFT PO ; Start 10/13/16 at 08:00 Cephalexin HCl (Keflex) 500 mg BID PO ; Start 10/12/16 at 21:00; Stop 10/14/16 at 13:29; Status DC EZETIMIBE (Zetia) 10 mg DAILY PO ; Start 10/13/16 at 09:00 Folic Acid (Folic Acid) 1 mg DAILY PO ; Start 10/13/16 at 09:00 Methotrexate 25 mg [id number] SQ Last administered on 10/12/16 23:01; Start at 21:00; Stop 10/14/16 at 13:46; Status DC Multivitamins (Thera M Plus) 1 tab DAILY PO ; Start 10/13/16 at 09:00 Olanzapine (ZyPREXA) 2.5 mg DAILY PO ; Start 10/13/16 at 09:00 Artificial Tears (Artificial Tears) 1 drop [id number] OU Last administered on 05:39; Start 10/13/16 at 06:00 Sennosides (Senna) 8.6 mg PRN BID PRN PO CONSTIPATION; Start 10/12/16 at 19:15 Sertraline HCl (Zoloft) 50 mg DAILY PO ; Start 10/13/16 at 09:00 Thiamine Mononitrate (Vitamin B-1) 100 mg DAILY PO ; Start 10/13/16 at 09:00 Amlodipine Besylate (Norvasc) 10 mg DAILY PO ; Start 10/13/16 at 09:00 Clonazepam (KlonoPIN) 0.5 mg BID PO ; Start 10/12/16 at 21:00 Non-Formulary Medication 1 ea BID OU Last administered on 10/16/16 08:55; Start 10/12/16 at 21:00 Nystatin 5 ml [id number] ; Start 10/13/16 at 09:30; Stop 10/13/16 at 15:55; Status DC Pantoprazole Sodium (Protonix) 40 mg DAILYAC PO ; Start 10/13/16 at 09:30 Potassium Chloride 40 meq/ Dextrose 1,020 ml @ 100 mls/hr [id number] IV Last administered on 10/14/16 09:59; Start 10/13/16 at 11:30; Stop 10/14/16 at 10:35 ; Status DC Iohexol (Omnipaque 300 Mg/ml) 75 ml 1X ONCE IV Last administered on 10/13/16 16:41; Start 10/13/16 at 16:00; Stop 10/13/16 at 16:01; Status DC Info (Do NOT chart on this entry -- for MONITORING) 1 each PRN DAILY PRN MC SEE COMMENTS; Start 10/13/16 at 16:00; Stop 10/15/16 at 15:59; Status DC Fluconazole/ Sodium Chloride 50 ml @ 100 mls/hr Q24H IV Last administered on 15:34; Start 10/13/16 at 16:00 Gadobutrol (Gadavist) 5 mmol 1X ONCE IV Last administered on 10/13/16 19:09; Start 10/13/16 at 18:45; Stop 10/13/16 at 18:46; Status DC Potassium Chloride/Dextrose/ Sod Cl 1,000 ml @ 80 mls/hr [id number] IV Last administered on 10/16/16 01:24; Start 10/14/16 at 10:45 Acetaminophen (Acetaminophen Supp) 650 mg PRN Q4HRS PRN [place] FEVER Last administered on 10/14/16 10:57; Start 10/14/16 at 10:45 Piperacillin Sod/ Tazobactam Sod 3.375 gm/Sodium Chloride 50 ml @ 100 mls/hr Q6HRS IV Last administered on 10/15/16 11:59; Start 10/14/16 at 13:30; Stop at 15:41; Status DC Vancomycin HCl (Vanco Per Pharmacy) 1 each PRN DAILY PRN MC SEE COMMENTS Last administered on 10/15/16 12:41; Start 10/14/16 at 13:30 Vancomycin HCl 1.25 gm/Sodium Chloride 250 ml @ 166.667 mls/hr 1X ONCE IV Last administered on 10/14/16 15:07; Start 10/14/16 at 13:45; Stop 10/14/16 at 15:14; Status DC Vancomycin HCl 750 mg/Sodium Chloride 250 ml @ 250 mls/hr Q24H IV Last administered on 10/15/16 15:34; Start 10/15/16 at 15:00 Vancomycin HCl 1 each 1X ONCE MC ; Start 10/16/16 at 14:30; Stop 10/16/16 at 14 :31 Magnesium Sulfate/ Dextrose 50 ml @ 25 mls/hr 1X ONCE IV Last administered on 10/15/16 11:20; Start 10/15/16 at 10:00; Stop 10/15/16 at 11:59; Status DC Info 1 each PRN DAILY PRN MC SEE COMMENTS; Start 10/16/16 at 11:15 Vitals/I & O Vital Sign - Last 24 Hours 10/15/16 10/15/16 10/15/16 10/15/16 14:40 19:10 19:56 22:59 Temp 97.5 98.3 98.2 97.5 98.3 98.2 Pulse 86 87 77 Resp 20 18 20 B/P (MAP) 109/64 (79) 116/78 (91) 120/75 (90) Pulse Ox 96 95 96 O2 Delivery Room Air Room Air Room Air Room Air 10/16/16 10/16/16 10/16/16 10/16/16 03:51 07:00 09:00 09:57 Temp 97.7 98.9 97.7 98.9 Pulse 88 78 88 Resp 20 20 B/P (MAP) 119/75 (90) 122/72 (89) 119/75 Pulse Ox 95 95 O2 Delivery Room Air Room Air Room Air 10/16/16 11:00 Temp 98.4 98.4 Pulse 77 Resp 20 B/P (MAP) 122/72 (89) Pulse Ox 95 O2 Delivery Room Air Intake and Output 10/15/16 10/15/16 10/16/16 15:00 23:00 07:00 Intake Total 1040 ml 30 ml 1000 ml Balance 1040 ml 30 ml 1000 ml Nutrition Consultation Dietary Evaluation: Recommendations by RD: PPN/TPN Comments: added magic cup tid- continue to send meals and encorage intake REC ppn for short term nutrition Expected Outcomes/Goals: to meet > 75% est nutr needs via po intake vs nutrition support: TF Interpretation of weight loss: >5% in 1 month Malnutrition Findings: Food and Nutrition Intake (Sev: <50% est energy req 5days Reduced Fundraising Sale Representative Strength: N/A Weight Status: Appropriate GAEL DISLA MD Oct 16, 2016 12:24
[2016-10-16] MEDS: TPN PER PHARMACY MC PRN (14:58)
[2016-10-16 15:00] VITALS: BP 118/77
[2016-10-16] MEDS: VANCOMYCIN 750 MG in IV NORMAL SALINE 250ML 250 ML IV SCH (15:00)
--- NOTE | 2016-10-16 15:08 | PDOC ---
Subjective: Subjective: Still fearful of swallowing. Objective: Objective: Per RN - family has questions about PEG. To have PICC placed for TPN today. Vital Signs: Vital Signs Date Time Temp Pulse Resp B/P (MAP) Pulse Ox O2 Delivery O2 Flow Rate FiO2 10/16/16 11:00 98.4 77 20 122/72 (89) 95 Room Air 98.4 Labs: Laboratory Tests Test 10/16/16 07:30 10/16/16 14:19 Sodium Level 134 mmol/L Potassium Level 4.5 mmol/L Chloride Level 100 mmol/L Carbon Dioxide Level 26 mmol/L Anion Gap 8 Blood Urea Nitrogen 4 mg/dL Creatinine 0.4 mg/dL Estimated GFR (Cockcroft-Gault) 157.3 Glucose Level 90 mg/dL Calcium Level 8.9 mg/dL Magnesium Level 1.7 mg/dL Vancomycin Level Trough 8.3 mcg/mL Vancomycin Last Dose Date 10/15/16 Vancomycin Last Dose Time 1500 PE: GEN: NAD LUNGS: CTAB HEART: RRR ABD: S/ND/NT NEURO/PSYCH: confused A/P: Psych issues, refusing food/fluids and meds -no change control analyst the weekend w/ IV Diflucan -- I called her son, ARCHIE Hardin. Wants to proceed w/ PEG. Did relate to me that she has previously pulled out IVs and NG tubes. Discussed risk of pulling out PEG, will review this w/ Dr. Leal. [place] METCALF Oct 16, 2016 15:08
[2016-10-16] MEDS: VANCOMYCIN PER PHARMACY MC PRN (15:26)
[2016-10-16 19:00] VITALS: BP 117/79
[2016-10-16] MEDS ORDERED: IV RINGERS,LACTATED 1000ML 1,000 ML IV SCH (19:38)
[2016-10-16 23:00] VITALS: BP 135/84
[2016-10-17] VITALS (8 sets, daily range): BP systolic 132–165; BP diastolic 60–79
[2016-10-17] MEDS: POTASSIUM CL 20MEQ D5-0.45NACL 1,000 ML IV SCH ×2 (01:15→18:00)
[2016-10-17] MEDS: FLUCONAZOLE 100MG/50ML PREMIX 50 ML IV SCH (01:52)
[2016-10-17] MEDS ORDERED: VANCOMYCIN 750 MG in IV NORMAL SALINE 250ML 250 ML IV SCH (03:00)
[2016-10-17] MEDS: POLYVINYL ALCOHOL 1.4% OPHTH SOLUTION 15ML BOTTLE. OU SCH ×2 (05:39→18:00)
[2016-10-17] MEDS: PANTOPRAZOLE 40 MG TABLET.DR. PO SCH (05:39)
[2016-10-17 06:55] LABS: CALCIUM 8.6 mg/dL (8.5-10.1); CREATININE 0.4 mg/dL (0.6-1.0); GFR 157.3; MAGNESIUM 1.6 mg/dL (1.8-2.4); PHOSPHORUS 3.3 mg/dL (2.6-4.7); POTASSIUM 3.9 mmol/L (3.5-5.1)
--- NOTE | 2016-10-17 07:04 | RAD ---
Indication: Line placement. Time of exam 0117 hours. Right upper extremity PICC line has the tip malpositioned. The tip is directed retrograde into the right internal jugular vein. The tip is not included on this radiograph. The lungs are clear. There is no pneumothorax. No effusion is seen. There are surgical clips in the left axilla. Impression: Malpositioned right upper extremity PICC line, as described.
[2016-10-17] MEDS: MULTIVITAMIN with MINERAL TABLET. PO SCH (07:50)
[2016-10-17] MEDS: amLODIPine BESYLATE 10 MG TABLET PO SCH (07:50)
[2016-10-17] MEDS: FOLIC ACID 1 MG TABLET. PO SCH (07:50)
[2016-10-17] MEDS: ASPIRIN CHEWABLE 81 MG TABLET. PO SCH (07:50)
[2016-10-17] MEDS: clonazePAM 0.5 MG TABLET PO SCH ×2 (07:50→21:00)
[2016-10-17] MEDS: OLANZapine 2.5 MG TABLET PO SCH (07:51)
[2016-10-17] MEDS: EZETIMIBE 10 MG TABLET. PO SCH (07:51)
[2016-10-17] MEDS: THIAMINE 100 MG TABLET. PO SCH (07:51)
[2016-10-17] MEDS: SERTRALINE 50 MG TABLET. PO SCH (07:51)
[2016-10-17] MEDS: XIIDRA OU SCH ×2 (08:34→21:23)
--- NOTE | 2016-10-17 10:13 | PDOC ---
Infectious Disease Note Subjective Subjective Confused. Jaguar hurts with her polymyositis today No fever last 24 hours ROS ROS GEN: Denies fevers, chills, sweats HEENT: Denies blurred vision, sore throat CV: Denies chest pain RESP: Denies shortness of air, cough GI: Denies n/v/d NEURO: Denies confusion, dizziness MSK: Denies weakness, joint pain/swelling Vital Sign Vital Signs Vital Signs Date Time Temp Pulse Resp B/P (MAP) Pulse Ox O2 Delivery O2 Flow Rate FiO2 10/17/16 07:00 98.0 86 18 147/72 (97) 94 Room Air 98.0 Physical Exam PHYSICAL EXAM GENERAL: NAD, Alert HEENT: PERRL, OC/OP NECK: Supple, no JVD, no LN LUNGS: Clear HEART: S1S2, no gallop, no murmur ABD: Soft, NT, no organomegaly, no rebound EXT: No edema, no cyanosis TRAINING SYSTEMS OFFICER: Alert, oriented x 3, no focal neurologic deficit SKIN: No rash IV: ok Labs Lab Laboratory Tests Test 10/16/16 14:19 10/17/16 06:10 Vancomycin Level Trough 8.3 mcg/mL (10.0-20.0) Vancomycin Last Dose Date 10/15/16 Vancomycin Last Dose Time 1500 Sodium Level 133 mmol/L (136-145) Potassium Level 3.9 mmol/L (3.5-5.1) Chloride Level 102 mmol/L (98-107) Carbon Dioxide Level 24 mmol/L (21-32) Anion Gap 7 (6-14) Blood Urea Nitrogen 4 mg/dL (7-20) Creatinine 0.4 mg/dL (0.6-1.0) Estimated GFR (Cockcroft-Gault) 157.3 Glucose Level 84 mg/dL (70-99) Calcium Level 8.6 mg/dL (8.5-10.1) Phosphorus Level 3.3 mg/dL (2.6-4.7) Magnesium Level 1.6 mg/dL (1.8-2.4) Objective Assessment h/o staph infection of left hip prosthesis, on chronic Keflex. Bone scan July 2016 in [place] - neg (reviewed results in records obtained) Fever - resolved ? aspiration Dysphagia Immunosuppression on methotrexate for polymyositis - off now h/o breast cancer on surveillance h/o MRSA Encephalopathy Plan Plan of Care D/c Vanc/fluconazole D/w Radiology reviewed CT - no gross lucency "pretty unremarkable" Restart Keflex Procalcitonin <0.10 BC NGTD Await EGD and possible gastrostomy tube placement Monitor lab values D/w Dr. Linton D/w BOBBY Kaba MD Oct 17, 2016 10:13
--- NOTE | 2016-10-17 10:20 | PDOC ---
PROGRESS NOTES Assessment Dysphagia. Weakness, generalized. Left side breast cancer, s/p mastectomy and chemo. Bipolar disorder. No evidence of acute CVA or brain metastatic disease Polymyositis, CPK normal, is in remission Plan Treat medical diseases PEG Subjective No complaints Objective Vital Signs Date Time Temp Pulse Resp B/P (MAP) Pulse Ox O2 Delivery O2 Flow Rate FiO2 10/17/16 07:00 98.0 86 18 147/72 (97) 94 Room Air 98.0 Intake and Output 10/17/16 07:00 Intake Total 320 ml Output Total 1 ml Balance 319 ml Intake Oral 20 ml IV Total 300 ml Stool Total 1 ml # Voids 4 PHYSICAL EXAM Alert. Oriented to place and person. Does not know date. PERRL. EOMI. CN: no focal findings. Muscle tone: normal. Muscle strength: 4/5 DTR: 1+ Plantar reflex: flexor Gait: not examined in bed. Sensory exam: no abnormal findings. No cerebellar signs elicited. Review of Relevant I have reviewed the following items meredith (where applicable) has been applied. Labs Laboratory Tests Test 10/16/16 07:30 10/16/16 14:19 10/17/16 06:10 Sodium Level 134 mmol/L (136-145) 133 mmol/L (136-145) Potassium Level 4.5 mmol/L (3.5-5.1) 3.9 mmol/L (3.5-5.1) Chloride Level 100 mmol/L (98-107) 102 mmol/L (98-107) Carbon Dioxide Level 26 mmol/L (21-32) 24 mmol/L (21-32) Anion Gap 8 (6-14) 7 (6-14) Blood Urea Nitrogen 4 mg/dL (7-20) 4 mg/dL (7-20) Creatinine 0.4 mg/dL (0.6-1.0) 0.4 mg/dL (0.6-1.0) Estimated GFR (Cockcroft-Gault) 157.3 157.3 Glucose Level 90 mg/dL (70-99) 84 mg/dL (70-99) Calcium Level 8.9 mg/dL (8.5-10.1) 8.6 mg/dL (8.5-10.1) Magnesium Level 1.7 mg/dL (1.8-2.4) 1.6 mg/dL (1.8-2.4) Vancomycin Level Trough 8.3 mcg/mL (10.0-20.0) Vancomycin Last Dose Date 10/15/16 Vancomycin Last Dose Time 1500 Phosphorus Level 3.3 mg/dL (2.6-4.7) Laboratory Tests Test 10/16/16 14:19 10/17/16 06:10 Vancomycin Level Trough 8.3 mcg/mL (10.0-20.0) Vancomycin Last Dose Date 10/15/16 Vancomycin Last Dose Time 1500 Sodium Level 133 mmol/L (136-145) Potassium Level 3.9 mmol/L (3.5-5.1) Chloride Level 102 mmol/L (98-107) Carbon Dioxide Level 24 mmol/L (21-32) Anion Gap 7 (6-14) Blood Urea Nitrogen 4 mg/dL (7-20) Creatinine 0.4 mg/dL (0.6-1.0) Estimated GFR (Cockcroft-Gault) 157.3 Glucose Level 84 mg/dL (70-99) Calcium Level 8.6 mg/dL (8.5-10.1) Phosphorus Level 3.3 mg/dL (2.6-4.7) Magnesium Level 1.6 mg/dL (1.8-2.4) Microbiology 10/13/16 Blood Culture - Preliminary, Resulted NO GROWTH AFTER 3 DAYS Medications Current Medications Fentanyl Citrate (Fentanyl 2ml Vial) 25 mcg PRN Q4HRS PRN IV PAIN Last administered on 10/16/16 09:57; Start 10/12/16 at 18:30 Ondansetron HCl (Zofran) 4 mg PRN Q4HRS PRN IV NAUSEA/VOMITING Last administered on 10/16/16 05:39; Start 10/12/16 at 18:30 Potassium Chloride/Dextrose 1,000 ml @ 75 mls/hr [id number] IV Last administered on 10/12/16 22:36; Start 10/12/16 at 21:30; Stop 10/13/16 at 10:55; Status DC Acetaminophen (Tylenol) 650 mg PRN Q4HRS PRN PO FEVER; Start 10/12/16 at 18:45 Aspirin (Children'S Aspirin) 81 mg DAILYWBKFT PO ; Start 10/13/16 at 08:00 Cephalexin HCl (Keflex) 500 mg BID PO ; Start 10/12/16 at 21:00; Stop 10/14/16 at 13:29; Status DC EZETIMIBE (Zetia) 10 mg DAILY PO ; Start 10/13/16 at 09:00 Folic Acid (Folic Acid) 1 mg DAILY PO ; Start 10/13/16 at 09:00 Methotrexate 25 mg [id number] SQ Last administered on 10/12/16 23:01; Start at 21:00; Stop 10/14/16 at 13:46; Status DC Multivitamins (Thera M Plus) 1 tab DAILY PO ; Start 10/13/16 at 09:00 Olanzapine (ZyPREXA) 2.5 mg DAILY PO ; Start 10/13/16 at 09:00 Artificial Tears (Artificial Tears) 1 drop [id number] OU Last administered on 05:39; Start 10/13/16 at 06:00 Sennosides (Senna) 8.6 mg PRN BID PRN PO CONSTIPATION; Start 10/12/16 at 19:15 Sertraline HCl (Zoloft) 50 mg DAILY PO ; Start 10/13/16 at 09:00 Thiamine Mononitrate (Vitamin B-1) 100 mg DAILY PO ; Start 10/13/16 at 09:00 Amlodipine Besylate (Norvasc) 10 mg DAILY PO ; Start 10/13/16 at 09:00 Clonazepam (KlonoPIN) 0.5 mg BID PO ; Start 10/12/16 at 21:00 Non-Formulary Medication 1 ea BID OU Last administered on 10/17/16 08:34; Start 10/12/16 at 21:00 Nystatin 5 ml [id number] ; Start 10/13/16 at 09:30; Stop 10/13/16 at 15:55; Status DC Pantoprazole Sodium (Protonix) 40 mg DAILYAC PO ; Start 10/13/16 at 09:30 Potassium Chloride 40 meq/ Dextrose 1,020 ml @ 100 mls/hr [id number] IV Last administered on 10/14/16 09:59; Start 10/13/16 at 11:30; Stop 10/14/16 at 10:35 ; Status DC Iohexol (Omnipaque 300 Mg/ml) 75 ml 1X ONCE IV Last administered on 10/13/16 16:41; Start 10/13/16 at 16:00; Stop 10/13/16 at 16:01; Status DC Info (Do NOT chart on this entry -- for MONITORING) 1 each PRN DAILY PRN MC SEE COMMENTS; Start 10/13/16 at 16:00; Stop 10/15/16 at 15:59; Status DC Fluconazole/ Sodium Chloride 50 ml @ 100 mls/hr Q24H IV Last administered on 01:52; Start 10/13/16 at 16:00; Stop 10/17/16 at 10:12; Status DC Gadobutrol (Gadavist) 5 mmol 1X ONCE IV Last administered on 10/13/16 19:09; Start 10/13/16 at 18:45; Stop 10/13/16 at 18:46; Status DC Potassium Chloride/Dextrose/ Sod Cl 1,000 ml @ 80 mls/hr [id number] IV Last administered on 10/16/16 01:24; Start 10/14/16 at 10:45 Acetaminophen (Acetaminophen Supp) 650 mg PRN Q4HRS PRN [place] FEVER Last administered on 10/14/16 10:57; Start 10/14/16 at 10:45 Piperacillin Sod/ Tazobactam Sod 3.375 gm/Sodium Chloride 50 ml @ 100 mls/hr Q6HRS IV Last administered on 10/15/16 11:59; Start 10/14/16 at 13:30; Stop at 15:41; Status DC Vancomycin HCl (Vanco Per Pharmacy) 1 each PRN DAILY PRN MC SEE COMMENTS Last administered on 10/16/16 15:26; Start 10/14/16 at 13:30; Stop 10/17/16 at 10:12 ; Status DC Vancomycin HCl 1.25 gm/Sodium Chloride 250 ml @ 166.667 mls/hr 1X ONCE IV Last administered on 10/14/16 15:07; Start 10/14/16 at 13:45; Stop 10/14/16 at 15:14; Status DC Vancomycin HCl 750 mg/Sodium Chloride 250 ml @ 250 mls/hr Q24H IV Last administered on 10/15/16 15:34; Start 10/15/16 at 15:00; Stop 10/16/16 at 18:00 ; Status DC Vancomycin HCl 1 each 1X ONCE MC Last administered on 10/16/16 14:30; Start 10/16/16 at 14:30; Stop 10/16/16 at 14:31; Status DC Magnesium Sulfate/ Dextrose 50 ml @ 25 mls/hr 1X ONCE IV Last administered on 10/15/16 11:20; Start 10/15/16 at 10:00; Stop 10/15/16 at 11:59; Status DC Info 1 each PRN DAILY PRN MC SEE COMMENTS Last administered on 10/16/16 14:58 ; Start 10/16/16 at 11:15 Vancomycin HCl 750 mg/Sodium Chloride 250 ml @ 250 mls/hr Q12H IV Last administered on 10/17/16 02:03; Start 10/17/16 at 03:00; Stop 10/17/16 at 10:12 ; Status DC Vancomycin HCl 1 each 1X ONCE MC ; Start 10/18/16 at 14:30; Stop 10/18/16 at 14 :31 Ringer's Solution 1,000 ml @ 50 mls/hr Q20H IV ; Start 10/16/16 at 19:38; Stop 10/17/16 at 07:37; Status DC Cephalexin HCl (Keflex) 500 mg BID PO ; Start 10/17/16 at 11:00 Vitals/I & O Vital Sign - Last 24 Hours 10/16/16 10/16/16 10/16/16 10/16/16 11:00 15:00 19:00 19:00 Temp 98.4 98.4 98.7 98.4 98.4 98.7 Pulse 77 79 82 Resp 20 20 20 B/P (MAP) 122/72 (89) 118/77 (91) 117/79 (92) Pulse Ox 95 96 97 O2 Delivery Room Air Room Air Room Air Room Air 10/16/16 10/17/16 23:00 07:00 Temp 98.7 98.0 98.7 98.0 Pulse 84 86 Resp 20 18 B/P (MAP) 135/84 (101) 147/72 (97) Pulse Ox 96 94 O2 Delivery Room Air Room Air Intake and Output 10/16/16 10/16/16 10/17/16 15:00 23:00 07:00 Intake Total 20 ml 300 ml Output Total 1 ml Balance 19 ml 300 ml MIGUEL FORD MD Oct 17, 2016 10:20
[2016-10-17] MEDS: CEPHALEXIN 250 MG CAPSULE. PO SCH ×2 (11:00→21:21)
[2016-10-17] MEDS: fentaNYL PF VIAL 100 MCG/2 ML VIAL IV PRN ×2 (12:41→21:51)
[2016-10-17 13:32] LABS: INR 1.6 (0.8-1.1); PROTHROMBIN TIME PATIENT 18.2 SEC (11.7-14.0)
[2016-10-17] MEDS: TPN PER PHARMACY MC PRN (14:45)
[2016-10-17] MEDS ORDERED: diphenhydrAMINE 50 MG/ML VIAL ONE (15:56)
[2016-10-17] MEDS ORDERED: fentaNYL PF VIAL 100 MCG/2 ML VIAL ONE (15:56)
[2016-10-17] MEDS ORDERED: MIDAZOLAM HCL/PF 5 MG/5 ML VIAL. ONE (15:56)
[2016-10-17] MEDS ORDERED: diphenhydrAMINE 50 MG/ML VIAL IV ONE (16:16)
[2016-10-17] MEDS ORDERED: fentaNYL PF VIAL 100 MCG/2 ML VIAL IV ONE ×4 (16:16→16:22)
[2016-10-17] MEDS ORDERED: MIDAZOLAM HCL/PF 5 MG/5 ML VIAL. IV ONE ×4 (16:16→16:22)
--- NOTE | 2016-10-17 16:38 | PDOC4 ---
Operative Note Operative Note EGD with PEG Meds Versed 5 mg/Fentanyl 100 mcg/Benadryl 50 mg iv Pre-op dx oropharyngeal dysphagia Post-op dx gastric ulcer s/p bx duodenal ulcers non-erosive gastritis S/p 20 FR Bard PEG placement Plan PPi therapy pending biopsy results begin peg feedings tonight abd binder at all times BRIDGET GARCÍA MD Oct 17, 2016 16:37
[2016-10-17] MEDS: ONDANSETRON PF 4 MG/2 ML VIAL. IV PRN (21:21)
[2016-10-18 03:00] VITALS: BP 139/71
[2016-10-18] MEDS: ONDANSETRON PF 4 MG/2 ML VIAL. IV PRN ×3 (03:06→13:34)
[2016-10-18] MEDS: fentaNYL PF VIAL 100 MCG/2 ML VIAL IV PRN ×5 (03:06→21:06)
[2016-10-18] MEDS: POTASSIUM CL 20MEQ D5-0.45NACL 1,000 ML IV SCH (03:07)
[2016-10-18] MEDS: POLYVINYL ALCOHOL 1.4% OPHTH SOLUTION 15ML BOTTLE. OU SCH ×2 (05:54→18:00)
[2016-10-18 07:00] VITALS: BP 147/68
[2016-10-18] MEDS: clonazePAM 0.5 MG TABLET PO SCH (09:00)
[2016-10-18] MEDS: OLANZapine 2.5 MG TABLET PO SCH (09:00)
[2016-10-18] MEDS: SERTRALINE 50 MG TABLET. PO SCH (09:00)
[2016-10-18] MEDS: EZETIMIBE 10 MG TABLET. PO SCH (09:00)
[2016-10-18] MEDS: ACETAMINOPHEN 325 MG TABLET. PO PRN (09:16)
[2016-10-18] MEDS: ASPIRIN CHEWABLE 81 MG TABLET. PO SCH (09:16)
[2016-10-18] MEDS: CEPHALEXIN 250 MG CAPSULE. PO SCH (09:16)
[2016-10-18] MEDS: amLODIPine BESYLATE 10 MG TABLET PO SCH (09:16)
[2016-10-18] MEDS: THIAMINE 100 MG TABLET. PO SCH (09:17)
[2016-10-18] MEDS: PANTOPRAZOLE 40 MG TABLET.DR. PO SCH (09:17)
[2016-10-18] MEDS: MULTIVITAMIN with MINERAL TABLET. PO SCH (09:17)
[2016-10-18] MEDS: FOLIC ACID 1 MG TABLET. PO SCH (09:17)
[2016-10-18] MEDS: XIIDRA OU SCH ×2 (09:18→21:06)
[2016-10-18 09:54] LABS: HEMATOCRIT 35.8 % (36.0-47.0); RED BLOOD COUNT 4.21 x10^6/uL (3.50-5.40); RED CELL DISTRIBUTION WIDTH 16.8 % (11.5-14.5); WHITE BLOOD COUNT 3.2 x10^3/uL (4.0-11.0)
[2016-10-18 09:56] LABS: ALBUMIN 1.9 g/dL (3.4-5.0); ALBUMIN/GLOBULIN RATIO 0.5 (1.0-1.7); CALCIUM 8.4 mg/dL (8.5-10.1); CREATININE 0.5 mg/dL (0.6-1.0); GFR 121.6; POTASSIUM 4.4 mmol/L (3.5-5.1); TOTAL BILIRUBIN 0.4 mg/dL (0.2-1.0); TOTAL PROTEIN 5.7 g/dL (6.4-8.2)
--- NOTE | 2016-10-18 10:19 | PDOC ---
Infectious Disease Note Subjective Subjective Confused. Doing well ROS ROS GEN: Denies fevers, chills, sweats HEENT: Denies blurred vision, sore throat CV: Denies chest pain RESP: Denies shortness of air, cough GI: Denies n/v/d NEURO: Denies confusion, dizziness MSK: Denies weakness, joint pain/swelling Vital Sign Vital Signs Vital Signs Date Time Temp Pulse Resp B/P (MAP) Pulse Ox O2 Delivery O2 Flow Rate FiO2 10/18/16 09:16 101 147/68 10/18/16 07:00 102.1 18 97 Room Air 102.1 10/18/16 03:36 2.0 Physical Exam PHYSICAL EXAM GENERAL: NAD, Alert HEENT: PERRL, OC/OP NECK: Supple, no JVD, no LN LUNGS: Clear HEART: S1S2, no gallop, no murmur ABD: Soft, NT, no organomegaly, no rebound, PEG/Binder EXT: No edema, no cyanosis HUMAN PERFORMANCE CONSULTANT: Alert, oriented x 2, no focal neurologic deficit SKIN: No rash IV: ok Labs Lab Laboratory Tests Test 10/17/16 12:50 10/18/16 09:25 Prothrombin Time 18.2 SEC (11.7-14.0) Prothromb Time International Ratio 1.6 (0.8-1.1) White Blood Count 3.2 x10^3/uL (4.0-11.0) Red Blood Count 4.21 x10^6/uL (3.50-5.40) Hemoglobin 12.0 g/dL (12.0-15.5) Hematocrit 35.8 % (36.0-47.0) Mean Corpuscular Volume 85 fL (79-100) Mean Corpuscular Hemoglobin 29 pg (25-35) Mean Corpuscular Hemoglobin Concent 34 g/dL (31-37) Red Cell Distribution Width 16.8 % (11.5-14.5) Platelet Count 210 x10^3/uL (140-400) Sodium Level 128 mmol/L (136-145) Potassium Level 4.4 mmol/L (3.5-5.1) Chloride Level 96 mmol/L (98-107) Carbon Dioxide Level 26 mmol/L (21-32) Anion Gap 6 (6-14) Blood Urea Nitrogen 4 mg/dL (7-20) Creatinine 0.5 mg/dL (0.6-1.0) Estimated GFR (Cockcroft-Gault) 121.6 BUN/Creatinine Ratio 8 (6-20) Glucose Level 126 mg/dL (70-99) Calcium Level 8.4 mg/dL (8.5-10.1) Total Bilirubin 0.4 mg/dL (0.2-1.0) Aspartate Amino Transf (AST/SGOT) 35 U/L (15-37) Alanine Aminotransferase (ALT/SGPT) 17 U/L (14-59) Alkaline Phosphatase 71 U/L (46-116) Total Protein 5.7 g/dL (6.4-8.2) Albumin 1.9 g/dL (3.4-5.0) Albumin/Globulin Ratio 0.5 (1.0-1.7) Objective Assessment Fever / Post procedure Leukopenia ? Med S/p PEG 10/17 h/o staph infection of left hip prosthesis, on chronic Keflex. Bone scan July 2016 in [place] - neg (reviewed results in records obtained) Fever - resolved ? aspiration Dysphagia Immunosuppression on methotrexate for polymyositis - off now h/o breast cancer on surveillance h/o MRSA Encephalopathy Plan Plan of Care Blood cult times 2/ UA C and S/CXR Zyvox/Cefepime/Flagyl. Avoid Vanc/Zosyn with leukopenia ? possible etiology Procalcitonin <0.10 BC NGTD Monitor lab values BOBBY PERERA MD Oct 18, 2016 10:19
[2016-10-18 10:55] VITALS: BP 119/60
--- NOTE | 2016-10-18 11:32 | PDOC ---
PROGRESS NOTES Assessment Dysphagia. Weakness, generalized. Left side breast cancer, s/p mastectomy and chemo. Bipolar disorder. No evidence of acute CVA or brain metastatic disease Polymyositis, CPK normal, is in remission Plan No additional neurological studies needed Will follow Subjective Complains of whole body pain Objective Vital Signs Date Time Temp Pulse Resp B/P (MAP) Pulse Ox O2 Delivery O2 Flow Rate FiO2 10/18/16 10:55 101.3 94 18 119/60 (79) 100 Room Air 101.3 10/18/16 08:00 2.0 Intake and Output 10/18/16 07:00 # Voids 6 PHYSICAL EXAM Alert. Oriented to place and person. Does not know date. Does not know that she had her PEG placed yesterday PERRL. EOMI. CN: no focal findings. Muscle tone: normal. Muscle strength: 4/5 DTR: 1+ Plantar reflex: flexor Gait: not examined in bed. Sensory exam: no abnormal findings. No cerebellar signs elicited. Review of Relevant I have reviewed the following items meredith (where applicable) has been applied. Labs Laboratory Tests Test 10/16/16 14:19 10/17/16 06:10 10/17/16 12:50 10/18/16 09:25 Vancomycin Level Trough 8.3 mcg/mL (10.0-20.0) Vancomycin Last Dose Date 10/15/16 Vancomycin Last Dose Time 1500 Sodium Level 133 mmol/L (136-145) 128 mmol/L (136-145) Potassium Level 3.9 mmol/L (3.5-5.1) 4.4 mmol/L (3.5-5.1) Chloride Level 102 mmol/L (98-107) 96 mmol/L (98-107) Carbon Dioxide Level 24 mmol/L (21-32) 26 mmol/L (21-32) Anion Gap 7 (6-14) 6 (6-14) Blood Urea Nitrogen 4 mg/dL (7-20) 4 mg/dL (7-20) Creatinine 0.4 mg/dL (0.6-1.0) 0.5 mg/dL (0.6-1.0) Estimated GFR (Cockcroft-Gault) 157.3 121.6 Glucose Level 84 mg/dL (70-99) 126 mg/dL (70-99) Calcium Level 8.6 mg/dL (8.5-10.1) 8.4 mg/dL (8.5-10.1) Phosphorus Level 3.3 mg/dL (2.6-4.7) Magnesium Level 1.6 mg/dL (1.8-2.4) Prothrombin Time 18.2 SEC (11.7-14.0) Prothromb Time International Ratio 1.6 (0.8-1.1) White Blood Count 3.2 x10^3/uL (4.0-11.0) Red Blood Count 4.21 x10^6/uL (3.50-5.40) Hemoglobin 12.0 g/dL (12.0-15.5) Hematocrit 35.8 % (36.0-47.0) Mean Corpuscular Volume 85 fL (79-100) Mean Corpuscular Hemoglobin 29 pg (25-35) Mean Corpuscular Hemoglobin Concent 34 g/dL (31-37) Red Cell Distribution Width 16.8 % (11.5-14.5) Platelet Count 210 x10^3/uL (140-400) BUN/Creatinine Ratio 8 (6-20) Total Bilirubin 0.4 mg/dL (0.2-1.0) Aspartate Amino Transf (AST/SGOT) 35 U/L (15-37) Alanine Aminotransferase (ALT/SGPT) 17 U/L (14-59) Alkaline Phosphatase 71 U/L (46-116) Total Protein 5.7 g/dL (6.4-8.2) Albumin 1.9 g/dL (3.4-5.0) Albumin/Globulin Ratio 0.5 (1.0-1.7) Laboratory Tests Test 10/17/16 12:50 10/18/16 09:25 Prothrombin Time 18.2 SEC (11.7-14.0) Prothromb Time International Ratio 1.6 (0.8-1.1) White Blood Count 3.2 x10^3/uL (4.0-11.0) Red Blood Count 4.21 x10^6/uL (3.50-5.40) Hemoglobin 12.0 g/dL (12.0-15.5) Hematocrit 35.8 % (36.0-47.0) Mean Corpuscular Volume 85 fL (79-100) Mean Corpuscular Hemoglobin 29 pg (25-35) Mean Corpuscular Hemoglobin Concent 34 g/dL (31-37) Red Cell Distribution Width 16.8 % (11.5-14.5) Platelet Count 210 x10^3/uL (140-400) Sodium Level 128 mmol/L (136-145) Potassium Level 4.4 mmol/L (3.5-5.1) Chloride Level 96 mmol/L (98-107) Carbon Dioxide Level 26 mmol/L (21-32) Anion Gap 6 (6-14) Blood Urea Nitrogen 4 mg/dL (7-20) Creatinine 0.5 mg/dL (0.6-1.0) Estimated GFR (Cockcroft-Gault) 121.6 BUN/Creatinine Ratio 8 (6-20) Glucose Level 126 mg/dL (70-99) Calcium Level 8.4 mg/dL (8.5-10.1) Total Bilirubin 0.4 mg/dL (0.2-1.0) Aspartate Amino Transf (AST/SGOT) 35 U/L (15-37) Alanine Aminotransferase (ALT/SGPT) 17 U/L (14-59) Alkaline Phosphatase 71 U/L (46-116) Total Protein 5.7 g/dL (6.4-8.2) Albumin 1.9 g/dL (3.4-5.0) Albumin/Globulin Ratio 0.5 (1.0-1.7) Microbiology 10/13/16 Blood Culture - Preliminary, Resulted NO GROWTH AFTER 4 DAYS Medications Current Medications Fentanyl Citrate (Fentanyl 2ml Vial) 25 mcg PRN Q4HRS PRN IV PAIN Last administered on 10/18/16 09:19; Start 10/12/16 at 18:30 Ondansetron HCl (Zofran) 4 mg PRN Q4HRS PRN IV NAUSEA/VOMITING Last administered on 10/18/16 09:21; Start 10/12/16 at 18:30 Potassium Chloride/Dextrose 1,000 ml @ 75 mls/hr [id number] IV Last administered on 10/12/16 22:36; Start 10/12/16 at 21:30; Stop 10/13/16 at 10:55; Status DC Acetaminophen (Tylenol) 650 mg PRN Q4HRS PRN PO FEVER Last administered on 10/18 09:16; Start 10/12/16 at 18:45 Aspirin (Children'S Aspirin) 81 mg [id number] PO Last administered on 09:16; Start 10/13/16 at 08:00 Cephalexin HCl (Keflex) 500 mg BID PO ; Start 10/12/16 at 21:00; Stop 10/14/16 at 13:29; Status DC EZETIMIBE (Zetia) 10 mg DAILY PO ; Start 10/13/16 at 09:00 Folic Acid (Folic Acid) 1 mg DAILY PO Last administered on 10/18/16 09:17; Start 10/13/16 at 09:00 Methotrexate 25 mg [id number] SQ Last administered on 10/12/16 23:01; Start at 21:00; Stop 10/14/16 at 13:46; Status DC Multivitamins (Thera M Plus) 1 tab DAILY PO Last administered on 10/18/16 09: 17; Start 10/13/16 at 09:00 Olanzapine (ZyPREXA) 2.5 mg DAILY PO ; Start 10/13/16 at 09:00 Artificial Tears (Artificial Tears) 1 drop [id number] Last administered on 05:39; Start 10/13/16 at 06:00 Sennosides (Senna) 8.6 mg PRN BID PRN PO CONSTIPATION; Start 10/12/16 at 19:15 Sertraline HCl (Zoloft) 50 mg DAILY PO ; Start 10/13/16 at 09:00 Thiamine Mononitrate (Vitamin B-1) 100 mg DAILY PO Last administered on 09:17; Start 10/13/16 at 09:00 Amlodipine Besylate (Norvasc) 10 mg DAILY PO Last administered on 10/18/16 09: 16; Start 10/13/16 at 09:00 Clonazepam (KlonoPIN) 0.5 mg BID PO ; Start 10/12/16 at 21:00 Non-Formulary Medication 1 ea BID OU Last administered on 10/18/16 09:18; Start 10/12/16 at 21:00 Nystatin 5 ml [id number] ; Start 10/13/16 at 09:30; Stop 10/13/16 at 15:55; Status DC Pantoprazole Sodium (Protonix) 40 mg DAILYAC PO Last administered on 10/18/16 09:17; Start 10/13/16 at 09:30 Potassium Chloride 40 meq/ Dextrose 1,020 ml @ 100 mls/hr [id number] IV Last administered on 10/14/16 09:59; Start 10/13/16 at 11:30; Stop 10/14/16 at 10:35 ; Status DC Iohexol (Omnipaque 300 Mg/ml) 75 ml 1X ONCE IV Last administered on 10/13/16 16:41; Start 10/13/16 at 16:00; Stop 10/13/16 at 16:01; Status DC Info (Do NOT chart on this entry -- for MONITORING) 1 each PRN DAILY PRN MC SEE COMMENTS; Start 10/13/16 at 16:00; Stop 10/15/16 at 15:59; Status DC Fluconazole/ Sodium Chloride 50 ml @ 100 mls/hr Q24H IV Last administered on 01:52; Start 10/13/16 at 16:00; Stop 10/17/16 at 10:12; Status DC Gadobutrol (Gadavist) 5 mmol 1X ONCE IV Last administered on 10/13/16 19:09; Start 10/13/16 at 18:45; Stop 10/13/16 at 18:46; Status DC Potassium Chloride/Dextrose/ Sod Cl 1,000 ml @ 80 mls/hr [id number] IV Last administered on 10/18/16 03:07; Start 10/14/16 at 10:45 Acetaminophen (Acetaminophen Supp) 650 mg PRN Q4HRS PRN ME FEVER Last administered on 10/14/16 10:57; Start 10/14/16 at 10:45 Piperacillin Sod/ Tazobactam Sod 3.375 gm/Sodium Chloride 50 ml @ 100 mls/hr Q6HRS IV Last administered on 10/15/16 11:59; Start 10/14/16 at 13:30; Stop at 15:41; Status DC Vancomycin HCl (Vanco Per Pharmacy) 1 each PRN DAILY PRN MC SEE COMMENTS Last administered on 10/16/16 15:26; Start 10/14/16 at 13:30; Stop 10/17/16 at 10:12 ; Status DC Vancomycin HCl 1.25 gm/Sodium Chloride 250 ml @ 166.667 mls/hr 1X ONCE IV Last administered on 10/14/16 15:07; Start 10/14/16 at 13:45; Stop 10/14/16 at 15:14; Status DC Vancomycin HCl 750 mg/Sodium Chloride 250 ml @ 250 mls/hr Q24H IV Last administered on 10/15/16 15:34; Start 10/15/16 at 15:00; Stop 10/16/16 at 18:00 ; Status DC Vancomycin HCl 1 each 1X ONCE MC Last administered on 10/16/16 14:30; Start 10/16/16 at 14:30; Stop 10/16/16 at 14:31; Status DC Magnesium Sulfate/ Dextrose 50 ml @ 25 mls/hr 1X ONCE IV Last administered on 10/15/16 11:20; Start 10/15/16 at 10:00; Stop 10/15/16 at 11:59; Status DC Info 1 each PRN DAILY PRN MC SEE COMMENTS Last administered on 10/17/16 14:45 ; Start 10/16/16 at 11:15 Vancomycin HCl 750 mg/Sodium Chloride 250 ml @ 250 mls/hr Q12H IV Last administered on 10/17/16 02:03; Start 10/17/16 at 03:00; Stop 10/17/16 at 10:12 ; Status DC Vancomycin HCl 1 each 1X ONCE MC ; Start 10/18/16 at 14:30; Stop 10/18/16 at 14 :31; Status Cancel Ringer's Solution 1,000 ml @ 50 mls/hr Q20H IV ; Start 10/16/16 at 19:38; Stop 10/17/16 at 07:37; Status DC Cephalexin HCl (Keflex) 500 mg BID PO Last administered on 10/18/16 09:16; Start 10/17/16 at 11:00; Stop 10/18/16 at 10:30; Status DC Midazolam HCl (Versed) 5 mg STK-MED ONCE .ROUTE ; Start 10/17/16 at 15:56; Stop 10/17/16 at 15:57; Status DC Fentanyl Citrate (Fentanyl 2ml Vial) 100 mcg STK-MED ONCE .ROUTE ; Start at 15:56; Stop 10/17/16 at 15:57; Status DC Diphenhydramine HCl (Benadryl) 50 mg STK-MED ONCE .ROUTE ; Start 10/17/16 at 15: 56; Stop 10/17/16 at 15:57; Status DC Diphenhydramine HCl (Benadryl) 50 mg STK-MED ONCE IV Last administered on 16:16; Start 10/17/16 at 16:16; Stop 10/17/16 at 16:54; Status DC Midazolam HCl (Versed) 5 mg STK-MED ONCE IV Last administered on 10/17/16 16: 16; Start 10/17/16 at 16:16; Stop 10/17/16 at 16:54; Status DC Fentanyl Citrate (Fentanyl 2ml Vial) 100 mcg STK-MED ONCE IV Last administered on 10/17/16 16:16; Start 10/17/16 at 16:16; Stop 10/17/16 at 16:54; Status DC Fentanyl Citrate (Fentanyl 2ml Vial) 100 mcg STK-MED ONCE IV Last administered on 10/17/16 16:18; Start 10/17/16 at 16:18; Stop 10/17/16 at 16:54; Status DC Midazolam HCl (Versed) 5 mg STK-MED ONCE IV Last administered on 10/17/16 16: 18; Start 10/17/16 at 16:18; Stop 10/17/16 at 16:55; Status DC Fentanyl Citrate (Fentanyl 2ml Vial) 100 mcg STK-MED ONCE IV Last administered on 10/17/16 16:20; Start 10/17/16 at 16:20; Stop 10/17/16 at 16:55; Status DC Midazolam HCl (Versed) 5 mg STK-MED ONCE IV Last administered on 10/17/16 16: 20; Start 10/17/16 at 16:20; Stop 10/17/16 at 16:55; Status DC Fentanyl Citrate (Fentanyl 2ml Vial) 100 mcg STK-MED ONCE IV Last administered on 10/17/16 16:22; Start 10/17/16 at 16:22; Stop 10/17/16 at 16:55; Status DC Midazolam HCl (Versed) 5 mg STK-MED ONCE IV Last administered on 6/27/17at 16: 22; Start 10/17/16 at 16:22; Stop 10/17/16 at 16:55; Status DC Cefepime HCl 1 gm/ Sodium Chloride 50 ml @ 100 mls/hr Q8HRS IV ; Start at 11:00 Metronidazole (Flagyl) 500 mg Q12HR PEG ; Start 10/18/16 at 10:30 Linezolid (Zyvox) 600 mg BID PEG ; Start 10/18/16 at 10:30 Vitals/I & O Vital Sign - Last 24 Hours 10/17/16 10/17/16 10/17/16 10/17/16 12:41 15:00 15:12 15:23 Temp 98.7 97.7 98.7 97.7 Pulse 80 79 Resp 18 20 B/P (MAP) 142/73 (96) Pulse Ox 98 99 O2 Delivery Room Air Room Air Room Air 10/17/16 10/17/16 10/17/16 10/17/16 16:16 16:18 16:20 16:23 Pulse 82 84 100 100 Resp 18 18 18 18 Pulse Ox 100 99 99 100 O2 Delivery Nasal Cannula Nasal Cannula Nasal Cannula Nasal Cannula O2 Flow Rate 2.0 3.0 2.0 3.0 10/17/16 10/17/16 10/17/16 10/17/16 16:28 16:33 16:34 16:49 Temp 98.7 98.7 Pulse 90 96 88 92 Resp 18 20 18 20 B/P (MAP) 137/81 132/77 Pulse Ox 99 96 100 100 O2 Delivery Nasal Cannula Nasal Cannula Nasal Cannula Room Air O2 Flow Rate 2.0 10/17/16 10/17/16 10/17/16 10/17/16 16:53 17:00 17:06 17:20 Pulse 83 77 81 79 Resp 20 B/P (MAP) 155/75 (101) 138/75 140/71 (94) 165/79 (107) Pulse Ox 95 99 96 96 O2 Delivery Room Air Room Air Room Air 10/17/16 10/17/16 10/17/16 10/17/16 19:00 20:00 21:51 23:00 Temp 98.1 98.6 98.1 98.6 Pulse 78 85 Resp 16 15 B/P (MAP) 150/72 (98) 132/60 (84) Pulse Ox 97 97 92 O2 Delivery Room Air Room Air Room Air Room Air O2 Flow Rate 2.0 2.0 10/18/16 10/18/16 10/18/16 10/18/16 03:00 03:06 03:36 07:00 Temp 98.8 102.1 98.8 102.1 Pulse 98 101 Resp 17 18 B/P (MAP) 139/71 (93) 147/68 (94) Pulse Ox 92 92 92 97 O2 Delivery Room Air Room Air Room Air Room Air O2 Flow Rate 2.0 2.0 10/18/16 10/18/16 10/18/16 08:00 09:16 10:55 Temp 101.3 101.3 Pulse 101 94 Resp 18 B/P (MAP) 147/68 119/60 (79) Pulse Ox 100 O2 Delivery Room Air Room Air O2 Flow Rate 2.0 MIGUEL FORD MD Oct 18, 2016 11:32
--- NOTE | 2016-10-18 11:33 | PDOC ---
Subjective: Subjective: "I feel drunk." Intermittently has "hey I have pain!" and calls for her niece (who is present). Says ate a little PO. Objective: Objective: Tmax 102.1, WBC down today. Per RN - c/o pain, doesn't like PEG, has pulled at it - has abd binder that's taped, had fever today. Eating PO a little. Vital Signs: Vital Signs Date Time Temp Pulse Resp B/P (MAP) Pulse Ox O2 Delivery O2 Flow Rate FiO2 10/18/16 10:55 101.3 94 18 119/60 (79) 100 Room Air 101.3 10/18/16 08:00 2.0 Labs: Laboratory Tests Test 10/17/16 12:50 10/18/16 09:25 Prothrombin Time 18.2 SEC Prothromb Time International Ratio 1.6 White Blood Count 3.2 x10^3/uL Red Blood Count 4.21 x10^6/uL Hemoglobin 12.0 g/dL Hematocrit 35.8 % Mean Corpuscular Volume 85 fL Mean Corpuscular Hemoglobin 29 pg Mean Corpuscular Hemoglobin Concent 34 g/dL Red Cell Distribution Width 16.8 % Platelet Count 210 x10^3/uL Sodium Level 128 mmol/L Potassium Level 4.4 mmol/L Chloride Level 96 mmol/L Carbon Dioxide Level 26 mmol/L Anion Gap 6 Blood Urea Nitrogen 4 mg/dL Creatinine 0.5 mg/dL Estimated GFR (Cockcroft-Gault) 121.6 BUN/Creatinine Ratio 8 Glucose Level 126 mg/dL Calcium Level 8.4 mg/dL Total Bilirubin 0.4 mg/dL Aspartate Amino Transf (AST/SGOT) 35 U/L Alanine Aminotransferase (ALT/SGPT) 17 U/L Alkaline Phosphatase 71 U/L Total Protein 5.7 g/dL Albumin 1.9 g/dL Albumin/Globulin Ratio 0.5 Imaging: EGD/PEG 10/17/16: gastric ulcer s/p bx, duodenal ulcers, non-erosive gastritis, S /p 20 FR Bard PEG placement. PE: GEN: NAD LUNGS: clear HEART: tachycardic ABD: BS+, abd binder and gauze covering PEG - removed and loosened bumper NEURO/PSYCH: confused A/P: Psych issues, refusing food/fluids and meds -s/p PEG placement 10/17/16 Gastric ulcer, duodenal ulcer -path pending -on PPI Fever, neutropenia, polymyositis -previously on methotrexate -atbx per ID -- PEG functioning, apparently now also eating a little PO. Loosened bumper today. Continue w/ abd binder. Will change to Prevacid w/ PEG. Await pathology. OH METCALF Oct 18, 2016 11:33
[2016-10-18] MEDS: LINEZOLID 600 MG TABLET PEG SCH ×2 (12:06→21:05)
[2016-10-18] MEDS: metroNIDAZOLE 500 MG TABLET PEG SCH ×2 (12:06→21:05)
[2016-10-18] MEDS: CEFEPIME HCL 1 GM in IV NORMAL SALINE 50ML 50 ML IV SCH ×2 (12:06→22:00)
--- NOTE | 2016-10-18 13:10 | RAD ---
Indication: Fever. Time of exam 12:46 PM Correlation is made with prior chest one day earlier. The malpositioned right upper extremity PICC line has been removed. The lungs are clear. The pulmonary vascularity is normal. No effusion or pneumothorax is seen. Impression: No acute cardiopulmonary process is detected.
[2016-10-18 13:58] LABS: BILIRUBIN,URINE NEGATIVE (NEG); GLUCOSE,URINE NEGATIVE (NEG); NITRITE,URINE NEGATIVE (NEG); PH,URINE 6.5; PROTEIN,URINE NEGATIVE (NEG-TRACE); UROBILINOGEN,URINE 0.2 mg/dL (0.2 mg/dL)
[2016-10-18 14:09] LABS: BACTERIA,URINE MODERATE /HPF (0-FEW); SQUAMOUS EPITHELIAL CELL,UR FEW /LPF
[2016-10-18 14:18] LABS: RBC,URINE OCC /HPF (0-2); WBC,URINE >40 /HPF (0-4)
[2016-10-18] MEDS: POTASSIUM CL 40MEQ IN 0.9%NACL 1,000 ML IV SCH (14:56)
[2016-10-18 15:00] VITALS: BP 102/61
--- NOTE | 2016-10-18 17:39 | PDOC ---
PROGRESS NOTES Subjective Subjective C/o generalized pain, not able to swallow. No consistency in her complains. Pain is achy, constant with out swelling. Objective Objective Vital Signs Date Time Temp Pulse Resp B/P (MAP) Pulse Ox O2 Delivery O2 Flow Rate FiO2 10/18/16 15:00 101.1 98 18 102/61 (75) 98 Room Air 101.1 10/18/16 08:00 2.0 Intake and Output 10/18/16 07:00 # Voids 6 Physical Exam Extremities: No clubbing, No cyanosis, No edema, Normal pulses, No tenderness/ swelling General: Alert, Cooperative, No acute distress HEENT: Mucous membr. moist/pink MUSCULOSKELETAL: No joint tenderness, No deformity, No swelling, No muscular tenderness noted Neuro: Other Skin: No rashes, No breakdown, No significant lesion Assessment Assessment 1. Polymyositis. 2. Disease-modifying antirheumatic drug monitoring. 3. Elevated sedimentation rate. 4. Elevated C-reactive protein. 5. Fever. 6. History of breast cancer. 7. Dysphagia, Plan Plan of Care Again, discussed with her sister and niece at great length. Eventhough she carries DX of polymyositis, currently in remission with normal CPK. So, I did discontinue her Methotrexate because risk of side effect outweighs any benefits from it. No clear etiology for her dysphagia (?psych). Family wants to have evaluation by [facility] at [facility] regarding polymyositis. I would recommend it. Because of fever, also avoid any immunosuppressive DMARD. Comment Review of Relevant I have reviewed the following items meredith (where applicable) has been applied. Labs Laboratory Tests Test 10/17/16 06:10 10/17/16 12:50 10/18/16 09:25 10/18/16 13:30 Sodium Level 133 mmol/L (136-145) 128 mmol/L (136-145) Potassium Level 3.9 mmol/L (3.5-5.1) 4.4 mmol/L (3.5-5.1) Chloride Level 102 mmol/L (98-107) 96 mmol/L (98-107) Carbon Dioxide Level 24 mmol/L (21-32) 26 mmol/L (21-32) Anion Gap 7 (6-14) 6 (6-14) Blood Urea Nitrogen 4 mg/dL (7-20) 4 mg/dL (7-20) Creatinine 0.4 mg/dL (0.6-1.0) 0.5 mg/dL (0.6-1.0) Estimated GFR (Cockcroft-Gault) 157.3 121.6 Glucose Level 84 mg/dL (70-99) 126 mg/dL (70-99) Calcium Level 8.6 mg/dL (8.5-10.1) 8.4 mg/dL (8.5-10.1) Phosphorus Level 3.3 mg/dL (2.6-4.7) Magnesium Level 1.6 mg/dL (1.8-2.4) Prothrombin Time 18.2 SEC (11.7-14.0) Prothromb Time International Ratio 1.6 (0.8-1.1) White Blood Count 3.2 x10^3/uL (4.0-11.0) Red Blood Count 4.21 x10^6/uL (3.50-5.40) Hemoglobin 12.0 g/dL (12.0-15.5) Hematocrit 35.8 % (36.0-47.0) Mean Corpuscular Volume 85 fL (79-100) Mean Corpuscular Hemoglobin 29 pg (25-35) Mean Corpuscular Hemoglobin Concent 34 g/dL (31-37) Red Cell Distribution Width 16.8 % (11.5-14.5) Platelet Count 210 x10^3/uL (140-400) BUN/Creatinine Ratio 8 (6-20) Total Bilirubin 0.4 mg/dL (0.2-1.0) Aspartate Amino Transf (AST/SGOT) 35 U/L (15-37) Alanine Aminotransferase (ALT/SGPT) 17 U/L (14-59) Alkaline Phosphatase 71 U/L (46-116) Total Protein 5.7 g/dL (6.4-8.2) Albumin 1.9 g/dL (3.4-5.0) Albumin/Globulin Ratio 0.5 (1.0-1.7) Urine Collection Type Void Urine Color Yellow Urine Clarity Clear Urine pH 6.5 Urine Specific [place] <=1.005 Urine Protein Negative mg/dL (NEG-TRACE) Urine Glucose (UA) Negative mg/dL (NEG) Urine Ketones (Stick) Negative mg/dL (NEG) Urine Blood Trace (NEG) Urine Nitrite Negative (NEG) Urine Bilirubin Negative (NEG) Urine Urobilinogen Dipstick 0.2 mg/dL (0.2 mg/dL) Urine Leukocyte Esterase Moderate (NEG) Urine RBC Occ /HPF (0-2) Urine WBC >40 /HPF (0-4) Urine Squamous Epithelial Cells Few /LPF Urine Bacteria Moderate /HPF (0-FEW) Urine Mucus Slight /LPF Laboratory Tests Test 10/18/16 09:25 10/18/16 13:30 White Blood Count 3.2 x10^3/uL (4.0-11.0) Red Blood Count 4.21 x10^6/uL (3.50-5.40) Hemoglobin 12.0 g/dL (12.0-15.5) Hematocrit 35.8 % (36.0-47.0) Mean Corpuscular Volume 85 fL (79-100) Mean Corpuscular Hemoglobin 29 pg (25-35) Mean Corpuscular Hemoglobin Concent 34 g/dL (31-37) Red Cell Distribution Width 16.8 % (11.5-14.5) Platelet Count 210 x10^3/uL (140-400) Sodium Level 128 mmol/L (136-145) Potassium Level 4.4 mmol/L (3.5-5.1) Chloride Level 96 mmol/L (98-107) Carbon Dioxide Level 26 mmol/L (21-32) Anion Gap 6 (6-14) Blood Urea Nitrogen 4 mg/dL (7-20) Creatinine 0.5 mg/dL (0.6-1.0) Estimated GFR (Cockcroft-Gault) 121.6 BUN/Creatinine Ratio 8 (6-20) Glucose Level 126 mg/dL (70-99) Calcium Level 8.4 mg/dL (8.5-10.1) Total Bilirubin 0.4 mg/dL (0.2-1.0) Aspartate Amino Transf (AST/SGOT) 35 U/L (15-37) Alanine Aminotransferase (ALT/SGPT) 17 U/L (14-59) Alkaline Phosphatase 71 U/L (46-116) Total Protein 5.7 g/dL (6.4-8.2) Albumin 1.9 g/dL (3.4-5.0) Albumin/Globulin Ratio 0.5 (1.0-1.7) Urine Collection Type Void Urine Color Yellow Urine Clarity Clear Urine pH 6.5 Urine Specific [place] <=1.005 Urine Protein Negative mg/dL (NEG-TRACE) Urine Glucose (UA) Negative mg/dL (NEG) Urine Ketones (Stick) Negative mg/dL (NEG) Urine Blood Trace (NEG) Urine Nitrite Negative (NEG) Urine Bilirubin Negative (NEG) Urine Urobilinogen Dipstick 0.2 mg/dL (0.2 mg/dL) Urine Leukocyte Esterase Moderate (NEG) Urine RBC Occ /HPF (0-2) Urine WBC >40 /HPF (0-4) Urine Squamous Epithelial Cells Few /LPF Urine Bacteria Moderate /HPF (0-FEW) Urine Mucus Slight /LPF Microbiology 10/13/16 Blood Culture - Final, Complete NO GROWTH AFTER 5 DAYS Medications Current Medications Fentanyl Citrate (Fentanyl 2ml Vial) 25 mcg PRN Q4HRS PRN IV PAIN Last administered on 10/18/16 09:19; Start 10/12/16 at 18:30; Stop 10/18/16 at 13:18 ; Status DC Ondansetron HCl (Zofran) 4 mg PRN Q4HRS PRN IV NAUSEA/VOMITING Last administered on 10/18/16 13:34; Start 10/12/16 at 18:30 Potassium Chloride/Dextrose 1,000 ml @ 75 mls/hr [id number] IV Last administered on 10/12/16 22:36; Start 10/12/16 at 21:30; Stop 10/13/16 at 10:55; Status DC Acetaminophen (Tylenol) 650 mg PRN Q4HRS PRN PO FEVER Last administered on 10/18 09:16; Start 10/12/16 at 18:45 Aspirin (Children'S Aspirin) 81 mg [id number] PO Last administered on 09:16; Start 10/13/16 at 08:00 Cephalexin HCl (Keflex) 500 mg BID PO ; Start 10/12/16 at 21:00; Stop 10/14/16 at 13:29; Status DC EZETIMIBE (Zetia) 10 mg DAILY PO ; Start 10/13/16 at 09:00 Folic Acid (Folic Acid) 1 mg DAILY PO Last administered on 10/18/16 09:17; Start 10/13/16 at 09:00 Methotrexate 25 mg [id number] SQ Last administered on 10/12/16 23:01; Start at 21:00; Stop 10/14/16 at 13:46; Status DC Multivitamins (Thera M Plus) 1 tab DAILY PO Last administered on 10/18/16 09: 17; Start 10/13/16 at 09:00 Olanzapine (ZyPREXA) 2.5 mg DAILY PO ; Start 10/13/16 at 09:00 Artificial Tears (Artificial Tears) 1 drop [id number] OU Last administered on 05:39; Start 10/13/16 at 06:00 Sennosides (Senna) 8.6 mg PRN BID PRN PO CONSTIPATION; Start 10/12/16 at 19:15 Sertraline HCl (Zoloft) 50 mg DAILY PO ; Start 10/13/16 at 09:00 Thiamine Mononitrate (Vitamin B-1) 100 mg DAILY PO Last administered on 09:17; Start 10/13/16 at 09:00 Amlodipine Besylate (Norvasc) 10 mg DAILY PO Last administered on 10/18/16 09: 16; Start 10/13/16 at 09:00 Clonazepam (KlonoPIN) 0.5 mg BID PO ; Start 10/12/16 at 21:00; Stop 10/18/16 at 13:01; Status DC Non-Formulary Medication 1 ea BID OU Last administered on 10/18/16 09:18; Start 10/12/16 at 21:00 Nystatin 5 ml [id number] ; Start 10/13/16 at 09:30; Stop 10/13/16 at 15:55; Status DC Pantoprazole Sodium (Protonix) 40 mg DAILYAC PO Last administered on 10/18/16 09:17; Start 10/13/16 at 09:30; Stop 10/18/16 at 11:46; Status DC Potassium Chloride 40 meq/ Dextrose 1,020 ml @ 100 mls/hr [id number] IV Last administered on 10/14/16 09:59; Start 10/13/16 at 11:30; Stop 10/14/16 at 10:35 ; Status DC Iohexol (Omnipaque 300 Mg/ml) 75 ml 1X ONCE IV Last administered on 10/13/16 16:41; Start 10/13/16 at 16:00; Stop 10/13/16 at 16:01; Status DC Info (Do NOT chart on this entry -- for MONITORING) 1 each PRN DAILY PRN MC SEE COMMENTS; Start 10/13/16 at 16:00; Stop 10/15/16 at 15:59; Status DC Fluconazole/ Sodium Chloride 50 ml @ 100 mls/hr Q24H IV Last administered on 01:52; Start 10/13/16 at 16:00; Stop 10/17/16 at 10:12; Status DC Gadobutrol (Gadavist) 5 mmol 1X ONCE IV Last administered on 10/13/16 19:09; Start 10/13/16 at 18:45; Stop 10/13/16 at 18:46; Status DC Potassium Chloride/Dextrose/ Sod Cl 1,000 ml @ 80 mls/hr [id number] IV Last administered on 10/18/16 03:07; Start 10/14/16 at 10:45; Stop 10/18/16 at 12:59 ; Status DC Acetaminophen (Acetaminophen Supp) 650 mg PRN Q4HRS PRN ME FEVER Last administered on 10/14/16 10:57; Start 10/14/16 at 10:45 Piperacillin Sod/ Tazobactam Sod 3.375 gm/Sodium Chloride 50 ml @ 100 mls/hr Q6HRS IV Last administered on 10/15/16 11:59; Start 10/14/16 at 13:30; Stop at 15:41; Status DC Vancomycin HCl (Vanco Per Pharmacy) 1 each PRN DAILY PRN MC SEE COMMENTS Last administered on 10/16/16 15:26; Start 10/14/16 at 13:30; Stop 10/17/16 at 10:12 ; Status DC Vancomycin HCl 1.25 gm/Sodium Chloride 250 ml @ 166.667 mls/hr 1X ONCE IV Last administered on 10/14/16 15:07; Start 10/14/16 at 13:45; Stop 10/14/16 at 15:14; Status DC Vancomycin HCl 750 mg/Sodium Chloride 250 ml @ 250 mls/hr Q24H IV Last administered on 10/15/16 15:34; Start 10/15/16 at 15:00; Stop 10/16/16 at 18:00 ; Status DC Vancomycin HCl 1 each 1X ONCE MC Last administered on 10/16/16 14:30; Start 10/16/16 at 14:30; Stop 10/16/16 at 14:31; Status DC Magnesium Sulfate/ Dextrose 50 ml @ 25 mls/hr 1X ONCE IV Last administered on 10/15/16 11:20; Start 10/15/16 at 10:00; Stop 10/15/16 at 11:59; Status DC Info 1 each PRN DAILY PRN MC SEE COMMENTS Last administered on 10/17/16 14:45 ; Start 10/16/16 at 11:15; Stop 10/18/16 at 13:12; Status DC Vancomycin HCl 750 mg/Sodium Chloride 250 ml @ 250 mls/hr Q12H IV Last administered on 10/17/16 02:03; Start 10/17/16 at 03:00; Stop 10/17/16 at 10:12 ; Status DC Vancomycin HCl 1 each 1X ONCE MC ; Start 10/18/16 at 14:30; Stop 10/18/16 at 14 :31; Status Cancel Ringer's Solution 1,000 ml @ 50 mls/hr Q20H IV ; Start 10/16/16 at 19:38; Stop 10/17/16 at 07:37; Status DC Cephalexin HCl (Keflex) 500 mg BID PO Last administered on 10/18/16 09:16; Start 10/17/16 at 11:00; Stop 10/18/16 at 10:30; Status DC Midazolam HCl (Versed) 5 mg STK-MED ONCE .ROUTE ; Start 10/17/16 at 15:56; Stop 10/17/16 at 15:57; Status DC Fentanyl Citrate (Fentanyl 2ml Vial) 100 mcg STK-MED ONCE .ROUTE ; Start at 15:56; Stop 10/17/16 at 15:57; Status DC Diphenhydramine HCl (Benadryl) 50 mg STK-MED ONCE .ROUTE ; Start 10/17/16 at 15: 56; Stop 10/17/16 at 15:57; Status DC Diphenhydramine HCl (Benadryl) 50 mg STK-MED ONCE IV Last administered on 16:16; Start 10/17/16 at 16:16; Stop 10/17/16 at 16:54; Status DC Midazolam HCl (Versed) 5 mg STK-MED ONCE IV Last administered on 10/17/16 16: 16; Start 10/17/16 at 16:16; Stop 10/17/16 at 16:54; Status DC Fentanyl Citrate (Fentanyl 2ml Vial) 100 mcg STK-MED ONCE IV Last administered on 10/17/16 16:16; Start 10/17/16 at 16:16; Stop 10/17/16 at 16:54; Status DC Fentanyl Citrate (Fentanyl 2ml Vial) 100 mcg STK-MED ONCE IV Last administered on 10/17/16 16:18; Start 10/17/16 at 16:18; Stop 10/17/16 at 16:54; Status DC Midazolam HCl (Versed) 5 mg STK-MED ONCE IV Last administered on 10/17/16 16: 18; Start 10/17/16 at 16:18; Stop 10/17/16 at 16:55; Status DC Fentanyl Citrate (Fentanyl 2ml Vial) 100 mcg STK-MED ONCE IV Last administered on 10/17/16 16:20; Start 10/17/16 at 16:20; Stop 10/17/16 at 16:55; Status DC Midazolam HCl (Versed) 5 mg STK-MED ONCE IV Last administered on 10/17/16 16: 20; Start 10/17/16 at 16:20; Stop 10/17/16 at 16:55; Status DC Fentanyl Citrate (Fentanyl 2ml Vial) 100 mcg STK-MED ONCE IV Last administered on 10/17/16 16:22; Start 10/17/16 at 16:22; Stop 10/17/16 at 16:55; Status DC Midazolam HCl (Versed) 5 mg STK-MED ONCE IV Last administered on 10/17/16 16: 22; Start 10/17/16 at 16:22; Stop 10/17/16 at 16:55; Status DC Cefepime HCl 1 gm/ Sodium Chloride 50 ml @ 100 mls/hr Q8HRS IV Last administered on 10/18/16 12:06; Start 10/18/16 at 11:00 Metronidazole (Flagyl) 500 mg Q12HR PEG Last administered on 10/18/16 12:06; Start 10/18/16 at 10:30 Linezolid (Zyvox) 600 mg BID PEG Last administered on 10/18/16 12:06; Start at 10:30 Lansoprazole (Prevacid) 30 mg BIDBFRMEAL FT ; Start 10/18/16 at 16:30 Potassium Chloride/Sodium Chloride 1,000 ml @ 75 mls/hr [id number] IV Last administered on 10/18/16 14:56; Start 10/18/16 at 14:00 Fentanyl Citrate (Fentanyl 2ml Vial) 50 mcg PRN Q3HRS PRN IV PAIN Last administered on 10/18/16 13:34; Start 10/18/16 at 13:30 Vitals/I & O Vital Sign - Last 24 Hours 10/17/16 10/17/16 10/17/16 10/17/16 19:00 20:00 21:51 23:00 Temp 98.1 98.6 98.1 98.6 Pulse 78 85 Resp 16 15 B/P (MAP) 150/72 (98) 132/60 (84) Pulse Ox 97 97 92 O2 Delivery Room Air Room Air Room Air Room Air O2 Flow Rate 2.0 2.0 10/18/16 10/18/16 10/18/16 10/18/16 03:00 03:06 03:36 07:00 Temp 98.8 102.1 98.8 102.1 Pulse 98 101 Resp 17 18 B/P (MAP) 139/71 (93) 147/68 (94) Pulse Ox 92 92 92 97 O2 Delivery Room Air Room Air Room Air Room Air O2 Flow Rate 2.0 2.0 10/18/16 10/18/16 10/18/16 10/18/16 08:00 09:16 10:55 15:00 Temp 101.3 101.1 101.3 101.1 Pulse 101 94 98 Resp 18 18 B/P (MAP) 147/68 119/60 (79) 102/61 (75) Pulse Ox 100 98 O2 Delivery Room Air Room Air Room Air O2 Flow Rate 2.0 Nutrition Consultation Dietary Evaluation: Recommendations by RD: PPN/TPN Comments: continue magic cup and added boost pudding tid- continue to send meals and [place] intake [facility] @ goal of 50 ml/hr Expected Outcomes/Goals: to tolerate TF @ goal Interpretation of weight loss: >5% in 1 month Malnutrition Findings: Food and Nutrition Intake (Sev: <50% est energy req 5days Reduced Night Manager Strength: N/A Weight Status: Appropriate GAEL DISLA MD Oct 18, 2016 17:39
[2016-10-18] MEDS: LANSOPRAZOLE 30 MG TAB.RAP.DR FT SCH (18:11)
[2016-10-18 23:00] VITALS: BP 86/49
[2016-10-18] MEDS ORDERED: IV NORMAL SALINE 1000ML BAG 1,000 ML IV ONE (23:45)
[2016-10-19] VITALS (7 sets, daily range): BP systolic 80–142; BP diastolic 37–66
[2016-10-19] MEDS: ACETAMINOPHEN 325 MG TABLET. PO PRN ×2 (00:08→23:05)
[2016-10-19 00:50] LABS: HEMATOCRIT 25.4 % (36.0-47.0); HEMOGLOBIN 8.2 g/dL (12.0-15.5); RED BLOOD COUNT 2.95 x10^6/uL (3.50-5.40); RED CELL DISTRIBUTION WIDTH 16.3 % (11.5-14.5); WHITE BLOOD COUNT 4.9 x10^3/uL (4.0-11.0)
[2016-10-19] MEDS: CEFEPIME HCL 1 GM in IV NORMAL SALINE 50ML 50 ML IV SCH ×3 (05:17→23:21)
[2016-10-19] MEDS: POLYVINYL ALCOHOL 1.4% OPHTH SOLUTION 15ML BOTTLE. OU SCH ×2 (05:17→18:00)
[2016-10-19] MEDS: POTASSIUM CL 40MEQ IN 0.9%NACL 1,000 ML IV SCH ×3 (05:24→22:45)
[2016-10-19] MEDS: LANSOPRAZOLE 30 MG TAB.RAP.DR FT SCH ×2 (08:39→16:30)
[2016-10-19] MEDS: metroNIDAZOLE 500 MG TABLET PEG SCH ×2 (08:39→23:05)
[2016-10-19] MEDS: FOLIC ACID 1 MG TABLET. PO SCH (08:39)
[2016-10-19] MEDS: LINEZOLID 600 MG TABLET PEG SCH ×2 (08:39→23:05)
[2016-10-19] MEDS: THIAMINE 100 MG TABLET. PO SCH (08:39)
[2016-10-19] MEDS: ASPIRIN CHEWABLE 81 MG TABLET. PO SCH (08:39)
[2016-10-19] MEDS: MULTIVITAMIN with MINERAL TABLET. PO SCH (08:40)
[2016-10-19] MEDS: XIIDRA OU SCH ×2 (08:50→23:27)
[2016-10-19] MEDS: EZETIMIBE 10 MG TABLET. PO SCH (09:00)
[2016-10-19] MEDS: SERTRALINE 50 MG TABLET. PO SCH (09:00)
[2016-10-19] MEDS: amLODIPine BESYLATE 10 MG TABLET PO SCH (09:00)
[2016-10-19] MEDS: OLANZapine 2.5 MG TABLET PO SCH (09:00)
--- NOTE | 2016-10-19 10:16 | PDOC ---
Objective: Objective: Was taking PO yesterday, now apparently family has requested NPO. Had some bleeding related to PICC. No issues w/ PEG per RN. Vital Signs: Vital Signs Date Time Temp Pulse Resp B/P (MAP) Pulse Ox O2 Delivery O2 Flow Rate FiO2 10/19/16 07:00 98.8 99 16 121/37 (65) 90 Room Air 98.8 10/18/16 21:36 2.0 Labs: Laboratory Tests Test 10/18/16 13:30 10/19/16 00:35 Urine Collection Type Void Urine Color Yellow Urine Clarity Clear Urine pH 6.5 Urine Specific [place] <=1.005 Urine Protein Negative mg/dL Urine Glucose (UA) Negative mg/dL Urine Ketones (Stick) Negative mg/dL Urine Blood Trace Urine Nitrite Negative Urine Bilirubin Negative Urine Urobilinogen Dipstick 0.2 mg/dL Urine Leukocyte Esterase Moderate Urine RBC Occ /HPF Urine WBC >40 /HPF Urine Squamous Epithelial Cells Few /LPF Urine Bacteria Moderate /HPF Urine Mucus Slight /LPF White Blood Count 4.9 x10^3/uL Red Blood Count 2.95 x10^6/uL Hemoglobin 8.2 g/dL Hematocrit 25.4 % Mean Corpuscular Volume 86 fL Mean Corpuscular Hemoglobin 28 pg Mean Corpuscular Hemoglobin Concent 32 g/dL Red Cell Distribution Width 16.3 % Platelet Count 139 x10^3/uL PE: GEN: NAD LUNGS: clear anteriorly HEART: tachycardic ABD: PEG under abd binder and gauze, looks okay (no erythema, a little drainage , seems non-tender) NEURO/PSYCH: 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 Continue w/ abd binder and PPI. Await pathology from EGD. ?drop in Hgb - recheck [place] METCALF Oct 19, 2016 10:16
--- NOTE | 2016-10-19 10:20 | PDOC ---
Infectious Disease Note Subjective Subjective Confused. Doing well ROS ROS GEN: Denies fevers, chills, sweats HEENT: Denies blurred vision, sore throat CV: Denies chest pain RESP: Denies shortness of air, cough GI: Denies n/v/d NEURO: Denies confusion, dizziness MSK: Denies weakness, has general pain Vital Sign Vital Signs Vital Signs Date Time Temp Pulse Resp B/P (MAP) Pulse Ox O2 Delivery O2 Flow Rate FiO2 10/19/16 09:00 99 121/37 10/19/16 07:00 98.8 16 90 Room Air 98.8 10/18/16 21:36 2.0 Physical Exam PHYSICAL EXAM GENERAL: NAD, Alert,in bed HEENT: PERRL, OC/OP- dry NECK: Supple, no JVD, no LN LUNGS: Clear HEART: S1S2, no gallop, no murmur ABD: Soft, NT, no organomegaly, no rebound, PEG/Binder EXT: No edema, no cyanosis 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, oriented x 2, no focal neurologic deficit SKIN: No rash IV: ok Labs Lab Laboratory Tests Test 10/18/16 13:30 10/19/16 00:35 Urine Collection Type Void Urine Color Yellow Urine Clarity Clear Urine pH 6.5 Urine Specific [place] <=1.005 Urine Protein Negative mg/dL (NEG-TRACE) Urine Glucose (UA) Negative mg/dL (NEG) Urine Ketones (Stick) Negative mg/dL (NEG) Urine Blood Trace (NEG) Urine Nitrite Negative (NEG) Urine Bilirubin Negative (NEG) Urine Urobilinogen Dipstick 0.2 mg/dL (0.2 mg/dL) Urine Leukocyte Esterase Moderate (NEG) Urine RBC Occ /HPF (0-2) Urine WBC >40 /HPF (0-4) Urine Squamous Epithelial Cells Few /LPF Urine Bacteria Moderate /HPF (0-FEW) Urine Mucus Slight /LPF White Blood Count 4.9 x10^3/uL (4.0-11.0) Red Blood Count 2.95 x10^6/uL (3.50-5.40) Hemoglobin 8.2 g/dL (12.0-15.5) Hematocrit 25.4 % (36.0-47.0) Mean Corpuscular Volume 86 fL (79-100) Mean Corpuscular Hemoglobin 28 pg (25-35) Mean Corpuscular Hemoglobin Concent 32 g/dL (31-37) Red Cell Distribution Width 16.3 % (11.5-14.5) Platelet Count 139 x10^3/uL (140-400) Objective Assessment Fever / Post procedure. ? UTI Leukopenia ? Med - better S/p PEG 10/17 h/o staph infection of left hip prosthesis, on chronic Keflex. Bone scan July 2016 in [place] - neg (reviewed results in records obtained) Fever - resolved ? aspiration Dysphagia Immunosuppression on methotrexate for polymyositis - off now h/o breast cancer on surveillance h/o MRSA Encephalopathy Plan Plan of Care F/u Blood cult times 2/ Urine cult Cont Zyvox/Cefepime/Flagyl. Avoid Vanc/Zosyn with leukopenia ? possible etiology Procalcitonin <0.10 BC NGTD Monitor lab values BOBBY PERERA MD Oct 19, 2016 10:20
[2016-10-19 12:28] LABS: BASO % 1 % (0-3); EOS % 1 % (0-3); HEMATOCRIT 26.6 % (36.0-47.0); HEMOGLOBIN 8.7 g/dL (12.0-15.5); LYMPH # 0.9 x10^3/uL (1.0-4.8); LYMPH % 16 % (24-48); MEAN CORPUSCULAR HEMOGLOBIN 28 pg (25-35); MEAN CORPUSCULAR HGB CONC 33 g/dL (31-37); MEAN CORPUSCULAR VOLUME 87 fL (79-100); MONO % 7 % (0-9); NEUT % 76 % (31-73); PLATELET COUNT 138 x10^3/uL (140-400); RED BLOOD COUNT 3.07 x10^6/uL (3.50-5.40); RED CELL DISTRIBUTION WIDTH 16.3 % (11.5-14.5); WHITE BLOOD COUNT 5.6 x10^3/uL (4.0-11.0)
[2016-10-19 12:35] LABS: CREATININE 0.5 mg/dL (0.6-1.0); GFR 121.6; POTASSIUM 4.4 mmol/L (3.5-5.1)
--- NOTE | 2016-10-19 14:33 | PDOC ---
PROGRESS NOTES Assessment Dysphagia. Weakness, generalized. Left side breast cancer, s/p mastectomy and chemo. Bipolar disorder. No evidence of acute CVA or brain metastatic disease Polymyositis, CPK normal, is in remission Plan No additional neurological studies needed Per family, they desire neuromuscular opinion at , that's fine Will follow Subjective no complaints Objective Vital Signs Date Time Temp Pulse Resp B/P (MAP) Pulse Ox O2 Delivery O2 Flow Rate FiO2 10/19/16 10:49 99.3 92 16 142/54 (83) 100 Room Air 99.3 10/18/16 21:36 2.0 Intake and Output 10/19/16 07:00 Intake Total 680 ml Output Total 50 ml Balance 630 ml Intake Oral 130 ml IV Total 50 ml Tube Feeding 500 ml Gastric Drainage Total 50 ml # Voids 8 # Bowel Movements 1 PHYSICAL EXAM Alert. Oriented to person. Does not know date. Says she's at "[facility] in [place]." PERRL. EOMI. CN: no focal findings. Muscle tone: normal. Muscle strength: 4/5 DTR: 1+ Plantar reflex: flexor Gait: not examined in bed. Sensory exam: no abnormal findings. No cerebellar signs elicited. Review of Relevant I have reviewed the following items meredith (where applicable) has been applied. Labs Laboratory Tests Test 10/18/16 09:25 10/18/16 13:30 10/19/16 00:35 10/19/16 12:00 White Blood Count 3.2 x10^3/uL (4.0-11.0) 4.9 x10^3/uL (4.0-11.0) 5.6 x10^3/uL (4.0-11.0) Red Blood Count 4.21 x10^6/uL (3.50-5.40) 2.95 x10^6/uL (3.50-5.40) 3.07 x10^6/uL (3.50-5.40) Hemoglobin 12.0 g/dL (12.0-15.5) 8.2 g/dL (12.0-15.5) 8.7 g/dL (12.0-15.5) Hematocrit 35.8 % (36.0-47.0) 25.4 % (36.0-47.0) 26.6 % (36.0-47.0) Mean Corpuscular Volume 85 fL (79-100) 86 fL (79-100) 87 fL (79-100) Mean Corpuscular Hemoglobin 29 pg (25-35) 28 pg (25-35) 28 pg (25-35) Mean Corpuscular Hemoglobin Concent 34 g/dL (31-37) 32 g/dL (31-37) 33 g/dL (31-37) Red Cell Distribution Width 16.8 % (11.5-14.5) 16.3 % (11.5-14.5) 16.3 % (11.5-14.5) Platelet Count 210 x10^3/uL (140-400) 139 x10^3/uL (140-400) 138 x10^3/uL (140-400) Sodium Level 128 mmol/L (136-145) 134 mmol/L (136-145) Potassium Level 4.4 mmol/L (3.5-5.1) 4.4 mmol/L (3.5-5.1) Chloride Level 96 mmol/L (98-107) 103 mmol/L (98-107) Carbon Dioxide Level 26 mmol/L (21-32) 26 mmol/L (21-32) Anion Gap 6 (6-14) 5 (6-14) Blood Urea Nitrogen 4 mg/dL (7-20) 8 mg/dL (7-20) Creatinine 0.5 mg/dL (0.6-1.0) 0.5 mg/dL (0.6-1.0) Estimated GFR (Cockcroft-Gault) 121.6 121.6 BUN/Creatinine Ratio 8 (6-20) Glucose Level 126 mg/dL (70-99) 113 mg/dL (70-99) Calcium Level 8.4 mg/dL (8.5-10.1) 8.0 mg/dL (8.5-10.1) Total Bilirubin 0.4 mg/dL (0.2-1.0) Aspartate Amino Transf (AST/SGOT) 35 U/L (15-37) Alanine Aminotransferase (ALT/SGPT) 17 U/L (14-59) Alkaline Phosphatase 71 U/L (46-116) Total Protein 5.7 g/dL (6.4-8.2) Albumin 1.9 g/dL (3.4-5.0) Albumin/Globulin Ratio 0.5 (1.0-1.7) Urine Collection Type Void Urine Color Yellow Urine Clarity Clear Urine pH 6.5 Urine Specific [place] <=1.005 Urine Protein Negative mg/dL (NEG-TRACE) Urine Glucose (UA) Negative mg/dL (NEG) Urine Ketones (Stick) Negative mg/dL (NEG) Urine Blood Trace (NEG) Urine Nitrite Negative (NEG) Urine Bilirubin Negative (NEG) Urine Urobilinogen Dipstick 0.2 mg/dL (0.2 mg/dL) Urine Leukocyte Esterase Moderate (NEG) Urine RBC Occ /HPF (0-2) Urine WBC >40 /HPF (0-4) Urine Squamous Epithelial Cells Few /LPF Urine Bacteria Moderate /HPF (0-FEW) Urine Mucus Slight /LPF Neutrophils (%) (Auto) 76 % (31-73) Lymphocytes (%) (Auto) 16 % (24-48) Monocytes (%) (Auto) 7 % (0-9) Eosinophils (%) (Auto) 1 % (0-3) Basophils (%) (Auto) 1 % (0-3) Neutrophils # (Auto) 4.3 x10^3uL (1.8-7.7) Lymphocytes # (Auto) 0.9 x10^3/uL (1.0-4.8) Monocytes # (Auto) 0.4 x10^3/uL (0.0-1.1) Eosinophils # (Auto) 0.1 x10^3/uL (0.0-0.7) Basophils # (Auto) 0.0 x10^3/uL (0.0-0.2) Laboratory Tests Test 10/19/16 00:35 10/19/16 12:00 White Blood Count 4.9 x10^3/uL (4.0-11.0) 5.6 x10^3/uL (4.0-11.0) Red Blood Count 2.95 x10^6/uL (3.50-5.40) 3.07 x10^6/uL (3.50-5.40) Hemoglobin 8.2 g/dL (12.0-15.5) 8.7 g/dL (12.0-15.5) Hematocrit 25.4 % (36.0-47.0) 26.6 % (36.0-47.0) Mean Corpuscular Volume 86 fL (79-100) 87 fL (79-100) Mean Corpuscular Hemoglobin 28 pg (25-35) 28 pg (25-35) Mean Corpuscular Hemoglobin Concent 32 g/dL (31-37) 33 g/dL (31-37) Red Cell Distribution Width 16.3 % (11.5-14.5) 16.3 % (11.5-14.5) Platelet Count 139 x10^3/uL (140-400) 138 x10^3/uL (140-400) Neutrophils (%) (Auto) 76 % (31-73) Lymphocytes (%) (Auto) 16 % (24-48) Monocytes (%) (Auto) 7 % (0-9) Eosinophils (%) (Auto) 1 % (0-3) Basophils (%) (Auto) 1 % (0-3) Neutrophils # (Auto) 4.3 x10^3uL (1.8-7.7) Lymphocytes # (Auto) 0.9 x10^3/uL (1.0-4.8) Monocytes # (Auto) 0.4 x10^3/uL (0.0-1.1) Eosinophils # (Auto) 0.1 x10^3/uL (0.0-0.7) Basophils # (Auto) 0.0 x10^3/uL (0.0-0.2) Sodium Level 134 mmol/L (136-145) Potassium Level 4.4 mmol/L (3.5-5.1) Chloride Level 103 mmol/L (98-107) Carbon Dioxide Level 26 mmol/L (21-32) Anion Gap 5 (6-14) Blood Urea Nitrogen 8 mg/dL (7-20) Creatinine 0.5 mg/dL (0.6-1.0) Estimated GFR (Cockcroft-Gault) 121.6 Glucose Level 113 mg/dL (70-99) Calcium Level 8.0 mg/dL (8.5-10.1) Microbiology 10/18/16 Blood Culture - Preliminary, Resulted NO GROWTH AFTER 1 DAY Medications Current Medications Fentanyl Citrate (Fentanyl 2ml Vial) 25 mcg PRN Q4HRS PRN IV PAIN Last administered on 10/18/16 09:19; Start 10/12/16 at 18:30; Stop 10/18/16 at 13:18 ; Status DC Ondansetron HCl (Zofran) 4 mg PRN Q4HRS PRN IV NAUSEA/VOMITING Last administered on 10/18/16 13:34; Start 10/12/16 at 18:30 Potassium Chloride/Dextrose 1,000 ml @ 75 mls/hr [id number] IV Last administered on 10/12/16 22:36; Start 10/12/16 at 21:30; Stop 10/13/16 at 10:55; Status DC Acetaminophen (Tylenol) 650 mg PRN Q4HRS PRN PO FEVER Last administered on 10/19 00:08; Start 10/12/16 at 18:45 Aspirin (Children'S Aspirin) 81 mg [id number] PO Last administered on 08:39; Start 10/13/16 at 08:00 Cephalexin HCl (Keflex) 500 mg BID PO ; Start 10/12/16 at 21:00; Stop 10/14/16 at 13:29; Status DC EZETIMIBE (Zetia) 10 mg DAILY PO ; Start 10/13/16 at 09:00 Folic Acid (Folic Acid) 1 mg DAILY PO Last administered on 10/19/16 08:39; Start 10/13/16 at 09:00 Methotrexate 25 mg [id number] SQ Last administered on 10/12/16 23:01; Start at 21:00; Stop 10/14/16 at 13:46; Status DC Multivitamins (Thera M Plus) 1 tab DAILY PO Last administered on 10/19/16 08: 40; Start 10/13/16 at 09:00 Olanzapine (ZyPREXA) 2.5 mg DAILY PO ; Start 10/13/16 at 09:00 Artificial Tears (Artificial Tears) 1 drop [id number] OU Last administered on 05:17; Start 10/13/16 at 06:00 Sennosides (Senna) 8.6 mg PRN BID PRN PO CONSTIPATION; Start 10/12/16 at 19:15 Sertraline HCl (Zoloft) 50 mg DAILY PO ; Start 10/13/16 at 09:00 Thiamine Mononitrate (Vitamin B-1) 100 mg DAILY PO Last administered on 08:39; Start 10/13/16 at 09:00 Amlodipine Besylate (Norvasc) 10 mg DAILY PO Last administered on 10/18/16 09: 16; Start 10/13/16 at 09:00 Clonazepam (KlonoPIN) 0.5 mg BID PO ; Start 10/12/16 at 21:00; Stop 10/18/16 at 13:01; Status DC Non-Formulary Medication 1 ea BID OU Last administered on 10/19/16 08:50; Start 10/12/16 at 21:00 Nystatin 5 ml [id number] ; Start 10/13/16 at 09:30; Stop 10/13/16 at 15:55; Status DC Pantoprazole Sodium (Protonix) 40 mg DAILYAC PO Last administered on 10/18/16 09:17; Start 10/13/16 at 09:30; Stop 10/18/16 at 11:46; Status DC Potassium Chloride 40 meq/ Dextrose 1,020 ml @ 100 mls/hr [id number] IV Last administered on 10/14/16 09:59; Start 10/13/16 at 11:30; Stop 10/14/16 at 10:35 ; Status DC Iohexol (Omnipaque 300 Mg/ml) 75 ml 1X ONCE IV Last administered on 10/13/16 16:41; Start 10/13/16 at 16:00; Stop 10/13/16 at 16:01; Status DC Info (Do NOT chart on this entry -- for MONITORING) 1 each PRN DAILY PRN MC SEE COMMENTS; Start 10/13/16 at 16:00; Stop 10/15/16 at 15:59; Status DC Fluconazole/ Sodium Chloride 50 ml @ 100 mls/hr Q24H IV Last administered on 01:52; Start 10/13/16 at 16:00; Stop 10/17/16 at 10:12; Status DC Gadobutrol (Gadavist) 5 mmol 1X ONCE IV Last administered on 10/13/16 19:09; Start 10/13/16 at 18:45; Stop 10/13/16 at 18:46; Status DC Potassium Chloride/Dextrose/ Sod Cl 1,000 ml @ 80 mls/hr [id number] IV Last administered on 10/18/16 03:07; Start 10/14/16 at 10:45; Stop 10/18/16 at 12:59 ; Status DC Acetaminophen (Acetaminophen Supp) 650 mg PRN Q4HRS PRN [place] FEVER Last administered on 10/14/16 10:57; Start 10/14/16 at 10:45 Piperacillin Sod/ Tazobactam Sod 3.375 gm/Sodium Chloride 50 ml @ 100 mls/hr Q6HRS IV Last administered on 10/15/16 11:59; Start 10/14/16 at 13:30; Stop at 15:41; Status DC Vancomycin HCl (Vanco Per Pharmacy) 1 each PRN DAILY PRN MC SEE COMMENTS Last administered on 10/16/16 15:26; Start 10/14/16 at 13:30; Stop 10/17/16 at 10:12 ; Status DC Vancomycin HCl 1.25 gm/Sodium Chloride 250 ml @ 166.667 mls/hr 1X ONCE IV Last administered on 10/14/16 15:07; Start 10/14/16 at 13:45; Stop 10/14/16 at 15:14; Status DC Vancomycin HCl 750 mg/Sodium Chloride 250 ml @ 250 mls/hr Q24H IV Last administered on 10/15/16 15:34; Start 10/15/16 at 15:00; Stop 10/16/16 at 18:00 ; Status DC Vancomycin HCl 1 each 1X ONCE MC Last administered on 10/16/16 14:30; Start 10/16/16 at 14:30; Stop 10/16/16 at 14:31; Status DC Magnesium Sulfate/ Dextrose 50 ml @ 25 mls/hr 1X ONCE IV Last administered on 10/15/16 11:20; Start 10/15/16 at 10:00; Stop 10/15/16 at 11:59; Status DC Info 1 each PRN DAILY PRN MC SEE COMMENTS Last administered on 10/17/16 14:45 ; Start 10/16/16 at 11:15; Stop 10/18/16 at 13:12; Status DC Vancomycin HCl 750 mg/Sodium Chloride 250 ml @ 250 mls/hr Q12H IV Last administered on 10/17/16 02:03; Start 10/17/16 at 03:00; Stop 10/17/16 at 10:12 ; Status DC Vancomycin HCl 1 each 1X ONCE MC ; Start 10/18/16 at 14:30; Stop 10/18/16 at 14 :31; Status Cancel Ringer's Solution 1,000 ml @ 50 mls/hr Q20H IV ; Start 10/16/16 at 19:38; Stop 10/17/16 at 07:37; Status DC Cephalexin HCl (Keflex) 500 mg BID PO Last administered on 10/18/16 09:16; Start 10/17/16 at 11:00; Stop 10/18/16 at 10:30; Status DC Midazolam HCl (Versed) 5 mg STK-MED ONCE .ROUTE ; Start 10/17/16 at 15:56; Stop 10/17/16 at 15:57; Status DC Fentanyl Citrate (Fentanyl 2ml Vial) 100 mcg STK-MED ONCE .ROUTE ; Start at 15:56; Stop 10/17/16 at 15:57; Status DC Diphenhydramine HCl (Benadryl) 50 mg STK-MED ONCE .ROUTE ; Start 10/17/16 at 15: 56; Stop 10/17/16 at 15:57; Status DC Diphenhydramine HCl (Benadryl) 50 mg STK-MED ONCE IV Last administered on 16:16; Start 10/17/16 at 16:16; Stop 10/17/16 at 16:54; Status DC Midazolam HCl (Versed) 5 mg STK-MED ONCE IV Last administered on 10/17/16 16: 16; Start 10/17/16 at 16:16; Stop 10/17/16 at 16:54; Status DC Fentanyl Citrate (Fentanyl 2ml Vial) 100 mcg STK-MED ONCE IV Last administered on 10/17/16 16:16; Start 10/17/16 at 16:16; Stop 10/17/16 at 16:54; Status DC Fentanyl Citrate (Fentanyl 2ml Vial) 100 mcg STK-MED ONCE IV Last administered on 10/17/16 16:18; Start 10/17/16 at 16:18; Stop 10/17/16 at 16:54; Status DC Midazolam HCl (Versed) 5 mg STK-MED ONCE IV Last administered on 10/17/16 16: 18; Start 10/17/16 at 16:18; Stop 10/17/16 at 16:55; Status DC Fentanyl Citrate (Fentanyl 2ml Vial) 100 mcg STK-MED ONCE IV Last administered on 10/17/16 16:20; Start 10/17/16 at 16:20; Stop 10/17/16 at 16:55; Status DC Midazolam HCl (Versed) 5 mg STK-MED ONCE IV Last administered on 10/17/16 16: 20; Start 10/17/16 at 16:20; Stop 10/17/16 at 16:55; Status DC Fentanyl Citrate (Fentanyl 2ml Vial) 100 mcg STK-MED ONCE IV Last administered on 10/17/16 16:22; Start 10/17/16 at 16:22; Stop 10/17/16 at 16:55; Status DC Midazolam HCl (Versed) 5 mg STK-MED ONCE IV Last administered on 10/17/16 16: 22; Start 10/17/16 at 16:22; Stop 10/17/16 at 16:55; Status DC Cefepime HCl 1 gm/ Sodium Chloride 50 ml @ 100 mls/hr Q8HRS IV Last administered on 10/19/16 05:17; Start 10/18/16 at 11:00 Metronidazole (Flagyl) 500 mg Q12HR PEG Last administered on 10/19/16 08:39; Start 10/18/16 at 10:30 Linezolid (Zyvox) 600 mg BID PEG Last administered on 10/19/16 08:39; Start at 10:30 Lansoprazole (Prevacid) 30 mg BIDBFRMEAL FT Last administered on 10/19/16 08: 39; Start 10/18/16 at 16:30 Potassium Chloride/Sodium Chloride 1,000 ml @ 75 mls/hr [id number] IV Last administered on 10/19/16 05:24; Start 10/18/16 at 14:00 Fentanyl Citrate (Fentanyl 2ml Vial) 50 mcg PRN Q3HRS PRN IV PAIN Last administered on 10/18/16 21:06; Start 10/18/16 at 13:30 Sodium Chloride 1,000 ml @ 0 mls/hr 1X ONCE IV Last administered on t 00:07; Start 10/18/16 at 23:45; Stop 10/18/16 at 23:46; Status DC Vitals/I & O Vital Sign - Last 24 Hours 10/18/16 10/18/16 10/18/16 10/18/16 15:00 20:00 21:06 21:36 Temp 101.1 101.1 Pulse 98 Resp 18 B/P (MAP) 102/61 (75) Pulse Ox 98 98 98 O2 Delivery Room Air Room Air Room Air Room Air O2 Flow Rate 2.0 2.0 2.0 10/18/16 10/19/16 10/19/16 10/19/16 23:00 03:00 07:00 09:00 Temp 100.8 98.1 98.8 100.8 98.1 98.8 Pulse 114 96 99 99 Resp 20 18 16 B/P (MAP) 86/49 (61) 80/49 (59) 121/37 (65) 121/37 Pulse Ox 100 94 90 O2 Delivery Room Air Room Air Room Air 10/19/16 10:49 Temp 99.3 99.3 Pulse 92 Resp 16 B/P (MAP) 142/54 (83) Pulse Ox 100 O2 Delivery Room Air Intake and Output 10/18/16 10/18/16 10/19/16 15:00 23:00 07:00 Intake Total 250 ml 350 ml 80 ml Output Total 50 ml Balance 200 ml 350 ml 80 ml MIGUEL FORD MD Oct 19, 2016 14:33
[2016-10-19 15:36] LABS: ALBUMIN 1.5 g/dL (3.4-5.0); ALBUMIN/GLOBULIN RATIO 0.5 (1.0-1.7); CALCIUM 7.9 mg/dL (8.5-10.1); CREATININE 0.5 mg/dL (0.6-1.0); GFR 121.6; POTASSIUM 4.4 mmol/L (3.5-5.1); TOTAL BILIRUBIN 0.3 mg/dL (0.2-1.0); TOTAL PROTEIN 4.6 g/dL (6.4-8.2)
--- NOTE | 2016-10-19 17:20 | PATHOLOGY ---
PATHOLOGY REPORT * * * * * * * * FINAL DIAGNOSIS: Gastric biopsies, gastric ulcer: - Reactive gastropathy with focal mild chronic inflammation. COMMENT: Sections of the gastric ulcer biopsy reveal multiple segments of gastric antral mucosa showing foveolar hyperplasia, congestion, and focal mild chronic inflammation. An immunoperoxidase stain for Helicobacter is obtained. No Helicobacter organisms are identified. The findings are consistent with a reactive gastropathy. There is no evidence of malignancy. (JPM:mgr; 10/19/2016) Special Stain Performed: Immunoperoxidase stain for Helicobacter (A1) REPORT ELECTRONICALLY SIGNED BY: Michael Ball M.D. DATE/TIME: 10/19/2016 17:19 * * * * * * * * GROSS PATHOLOGY: Received in formalin labeled "Batsheva Avina, gastric ulcer biopsy," are multiple segments of dolan soft tissue measuring 0.6 x 0.5 x 0.5 cm in aggregate dimensions and ranging from 0.1 to 0.3 cm in maximum dimension. The specimen is submitted entirely in cassette A1. (JPM; 10/18/16) INITIAL CPT CODE(S): A; 67346, 46470 Professional services performed [place] [facility] [place] [address] Technical services performed by [facility] [employer] at [address] [place] [address], [facility] [address] [address]. SPECIMEN(S) RECEIVED: A.Gastric ulcer biopsy CLINICAL HISTORY: Severe malnutrition PATIENT: DONALD CALIX /AGE: 1002/01/1945 (Age: 71) PATIENT #: [id number] ALT CASE #: SPECIMEN COLLECTION DATE: 10/17/2016 SPECIMEN RECEIVED DATE: 10/18/2016 [facility] - [id number] [place] [address] - PHONE: [phone] * * * END OF REPORT * * *
[2016-10-19] MEDS: fentaNYL PF VIAL 100 MCG/2 ML VIAL IV PRN (22:40)
[2016-10-20 04:30] LABS: HEMATOCRIT 24.9 % (36.0-47.0); HEMOGLOBIN 8.1 g/dL (12.0-15.5); RED BLOOD COUNT 2.88 x10^6/uL (3.50-5.40); RED CELL DISTRIBUTION WIDTH 17.1 % (11.5-14.5); WHITE BLOOD COUNT 5.3 x10^3/uL (4.0-11.0)
[2016-10-20 05:03] LABS: CREATININE 0.4 mg/dL (0.6-1.0); GFR 157.3; POTASSIUM 4.9 mmol/L (3.5-5.1)
[2016-10-20] MEDS: CEFEPIME HCL 1 GM in IV NORMAL SALINE 50ML 50 ML IV SCH ×2 (06:02→13:24)
[2016-10-20] MEDS: POLYVINYL ALCOHOL 1.4% OPHTH SOLUTION 15ML BOTTLE. OU SCH ×2 (06:05→18:31)
[2016-10-20 07:00] VITALS: BP 154/66
[2016-10-20] MEDS: OLANZapine 2.5 MG TABLET PO SCH (09:00)
[2016-10-20] MEDS: SERTRALINE 50 MG TABLET. PO SCH (09:00)
[2016-10-20] MEDS: XIIDRA OU SCH ×2 (09:00→21:00)
[2016-10-20] MEDS: EZETIMIBE 10 MG TABLET. PO SCH (09:00)
[2016-10-20] MEDS: THIAMINE 100 MG TABLET. PO SCH (09:53)
[2016-10-20] MEDS: FOLIC ACID 1 MG TABLET. PO SCH (09:53)
[2016-10-20] MEDS: amLODIPine BESYLATE 10 MG TABLET PO SCH (09:54)
[2016-10-20] MEDS: ASPIRIN CHEWABLE 81 MG TABLET. PO SCH (09:54)
[2016-10-20] MEDS: LINEZOLID 600 MG TABLET PEG SCH (09:54)
[2016-10-20] MEDS: MULTIVITAMIN with MINERAL TABLET. PO SCH (09:54)
[2016-10-20] MEDS: metroNIDAZOLE 500 MG TABLET PEG SCH (09:54)
[2016-10-20] MEDS: LANSOPRAZOLE 30 MG TAB.RAP.DR FT SCH ×2 (09:55→16:29)
[2016-10-20 11:00] VITALS: BP 121/57
--- NOTE | 2016-10-20 11:28 | PDOC ---
PROGRESS NOTES Assessment Dysphagia. Weakness, generalized. Left side breast cancer, s/p mastectomy and chemo. Bipolar disorder with dementia. No evidence of acute CVA or brain metastatic disease Polymyositis, CPK normal, is in remission Strong role of her psychiatric disease. I think that most of her weakness and dysphagia is feigned Plan No additional neurological studies needed I discussed with patient's son who is her power of inner layer scrubber tender and he agrees that there is no need for further neurological workup such as a transfer to and says that we should listen to him as power of inner layer scrubber tender and not any other family members. Will follow Subjective Her missing teeth hurt Objective Vital Signs Date Time Temp Pulse Resp B/P (MAP) Pulse Ox O2 Delivery O2 Flow Rate FiO2 10/20/16 09:54 98 154/66 10/20/16 07:00 99.9 21 92 Room Air 99.9 Intake and Output 10/20/16 07:00 Intake Total 180 ml Output Total 0 ml Balance 180 ml Intake Oral 0 ml IV Total 50 ml Tube Feeding 130 ml Gastric Drainage Total 0 ml # Voids 6 # Bowel Movements 1 PHYSICAL EXAM Alert. Oriented to person. Does not know date. PERRL. EOMI. CN: no focal findings. Muscle tone: normal. Muscle strength: 4/5. She claims that she cannot move her legs but resists me with quite good strength when I try to move them. She says that she cannot stick out her tongue, but has no dysarthria and spits out water without difficulty when placed in her mouth by her friend. DTR: 1+ Plantar reflex: flexor Gait: not examined in bed. Sensory exam: no abnormal findings. No cerebellar signs elicited. Review of Relevant I have reviewed the following items meredith (where applicable) has been applied. Labs Laboratory Tests Test 10/18/16 13:30 10/19/16 00:35 10/19/16 12:00 10/20/16 04:25 Urine Collection Type Void Urine Color Yellow Urine Clarity Clear Urine pH 6.5 Urine Specific Oto <=1.005 Urine Protein Negative mg/dL (NEG-TRACE) Urine Glucose (UA) Negative mg/dL (NEG) Urine Ketones (Stick) Negative mg/dL (NEG) Urine Blood Trace (NEG) Urine Nitrite Negative (NEG) Urine Bilirubin Negative (NEG) Urine Urobilinogen Dipstick 0.2 mg/dL (0.2 mg/dL) Urine Leukocyte Esterase Moderate (NEG) Urine RBC Occ /HPF (0-2) Urine WBC >40 /HPF (0-4) Urine Squamous Epithelial Cells Few /LPF Urine Bacteria Moderate /HPF (0-FEW) Urine Mucus Slight /LPF White Blood Count 4.9 x10^3/uL (4.0-11.0) 5.6 x10^3/uL (4.0-11.0) 5.3 x10^3/uL (4.0-11.0) Red Blood Count 2.95 x10^6/uL (3.50-5.40) 3.07 x10^6/uL (3.50-5.40) 2.88 x10^6/uL (3.50-5.40) Hemoglobin 8.2 g/dL (12.0-15.5) 8.7 g/dL (12.0-15.5) 8.1 g/dL (12.0-15.5) Hematocrit 25.4 % (36.0-47.0) 26.6 % (36.0-47.0) 24.9 % (36.0-47.0) Mean Corpuscular Volume 86 fL (79-100) 87 fL (79-100) 86 fL (79-100) Mean Corpuscular Hemoglobin 28 pg (25-35) 28 pg (25-35) 28 pg (25-35) Mean Corpuscular Hemoglobin Concent 32 g/dL (31-37) 33 g/dL (31-37) 33 g/dL (31-37) Red Cell Distribution Width 16.3 % (11.5-14.5) 16.3 % (11.5-14.5) 17.1 % (11.5-14.5) Platelet Count 139 x10^3/uL (140-400) 138 x10^3/uL (140-400) 145 x10^3/uL (140-400) Neutrophils (%) (Auto) 76 % (31-73) Lymphocytes (%) (Auto) 16 % (24-48) Monocytes (%) (Auto) 7 % (0-9) Eosinophils (%) (Auto) 1 % (0-3) Basophils (%) (Auto) 1 % (0-3) Neutrophils # (Auto) 4.3 x10^3uL (1.8-7.7) Lymphocytes # (Auto) 0.9 x10^3/uL (1.0-4.8) Monocytes # (Auto) 0.4 x10^3/uL (0.0-1.1) Eosinophils # (Auto) 0.1 x10^3/uL (0.0-0.7) Basophils # (Auto) 0.0 x10^3/uL (0.0-0.2) Sodium Level 133 mmol/L (136-145) 132 mmol/L (136-145) Potassium Level 4.4 mmol/L (3.5-5.1) 4.9 mmol/L (3.5-5.1) Chloride Level 102 mmol/L (98-107) 104 mmol/L (98-107) Carbon Dioxide Level 26 mmol/L (21-32) 23 mmol/L (21-32) Anion Gap 5 (6-14) 5 (6-14) Blood Urea Nitrogen 10 mg/dL (7-20) 11 mg/dL (7-20) Creatinine 0.5 mg/dL (0.6-1.0) 0.4 mg/dL (0.6-1.0) Estimated GFR (Cockcroft-Gault) 121.6 157.3 BUN/Creatinine Ratio 20 (6-20) Glucose Level 112 mg/dL (70-99) 117 mg/dL (70-99) Calcium Level 7.9 mg/dL (8.5-10.1) 8.0 mg/dL (8.5-10.1) Total Bilirubin 0.3 mg/dL (0.2-1.0) Aspartate Amino Transf (AST/SGOT) 15 U/L (15-37) Alanine Aminotransferase (ALT/SGPT) 12 U/L (14-59) Alkaline Phosphatase 51 U/L (46-116) Total Protein 4.6 g/dL (6.4-8.2) Albumin 1.5 g/dL (3.4-5.0) Albumin/Globulin Ratio 0.5 (1.0-1.7) Laboratory Tests Test 10/19/16 12:00 10/20/16 04:25 White Blood Count 5.6 x10^3/uL (4.0-11.0) 5.3 x10^3/uL (4.0-11.0) Red Blood Count 3.07 x10^6/uL (3.50-5.40) 2.88 x10^6/uL (3.50-5.40) Hemoglobin 8.7 g/dL (12.0-15.5) 8.1 g/dL (12.0-15.5) Hematocrit 26.6 % (36.0-47.0) 24.9 % (36.0-47.0) Mean Corpuscular Volume 87 fL (79-100) 86 fL (79-100) Mean Corpuscular Hemoglobin 28 pg (25-35) 28 pg (25-35) Mean Corpuscular Hemoglobin Concent 33 g/dL (31-37) 33 g/dL (31-37) Red Cell Distribution Width 16.3 % (11.5-14.5) 17.1 % (11.5-14.5) Platelet Count 138 x10^3/uL (140-400) 145 x10^3/uL (140-400) Neutrophils (%) (Auto) 76 % (31-73) Lymphocytes (%) (Auto) 16 % (24-48) Monocytes (%) (Auto) 7 % (0-9) Eosinophils (%) (Auto) 1 % (0-3) Basophils (%) (Auto) 1 % (0-3) Neutrophils # (Auto) 4.3 x10^3uL (1.8-7.7) Lymphocytes # (Auto) 0.9 x10^3/uL (1.0-4.8) Monocytes # (Auto) 0.4 x10^3/uL (0.0-1.1) Eosinophils # (Auto) 0.1 x10^3/uL (0.0-0.7) Basophils # (Auto) 0.0 x10^3/uL (0.0-0.2) Sodium Level 133 mmol/L (136-145) 132 mmol/L (136-145) Potassium Level 4.4 mmol/L (3.5-5.1) 4.9 mmol/L (3.5-5.1) Chloride Level 102 mmol/L (98-107) 104 mmol/L (98-107) Carbon Dioxide Level 26 mmol/L (21-32) 23 mmol/L (21-32) Anion Gap 5 (6-14) 5 (6-14) Blood Urea Nitrogen 10 mg/dL (7-20) 11 mg/dL (7-20) Creatinine 0.5 mg/dL (0.6-1.0) 0.4 mg/dL (0.6-1.0) Estimated GFR (Cockcroft-Gault) 121.6 157.3 BUN/Creatinine Ratio 20 (6-20) Glucose Level 112 mg/dL (70-99) 117 mg/dL (70-99) Calcium Level 7.9 mg/dL (8.5-10.1) 8.0 mg/dL (8.5-10.1) Total Bilirubin 0.3 mg/dL (0.2-1.0) Aspartate Amino Transf (AST/SGOT) 15 U/L (15-37) Alanine Aminotransferase (ALT/SGPT) 12 U/L (14-59) Alkaline Phosphatase 51 U/L (46-116) Total Protein 4.6 g/dL (6.4-8.2) Albumin 1.5 g/dL (3.4-5.0) Albumin/Globulin Ratio 0.5 (1.0-1.7) Microbiology 10/19/16 Blood Culture - Preliminary, Resulted NO GROWTH AFTER 1 DAY 10/18/16 Urine Culture - Preliminary, Resulted 10/18/16 Urine Culture Result 1 (RIC) - Preliminary, Resulted Medications Current Medications Fentanyl Citrate (Fentanyl 2ml Vial) 25 mcg PRN Q4HRS PRN IV PAIN Last administered on 10/18/16 09:19; Start 10/12/16 at 18:30; Stop 10/18/16 at 13:18 ; Status DC Ondansetron HCl (Zofran) 4 mg PRN Q4HRS PRN IV NAUSEA/VOMITING Last administered on 10/18/16 13:34; Start 10/12/16 at 18:30 Potassium Chloride/Dextrose 1,000 ml @ 75 mls/hr [id number] IV Last administered on 10/12/16 22:36; Start 10/12/16 at 21:30; Stop 10/13/16 at 10:55; Status DC Acetaminophen (Tylenol) 650 mg PRN Q4HRS PRN PO FEVER Last administered on 10/19 23:05; Start 10/12/16 at 18:45 Aspirin (Children'S Aspirin) 81 mg [id number] PO Last administered on 09:54; Start 10/13/16 at 08:00 Cephalexin HCl (Keflex) 500 mg BID PO ; Start 10/12/16 at 21:00; Stop 10/14/16 at 13:29; Status DC EZETIMIBE (Zetia) 10 mg DAILY PO ; Start 10/13/16 at 09:00 Folic Acid (Folic Acid) 1 mg DAILY PO Last administered on 10/20/16 09:53; Start 10/13/16 at 09:00 Methotrexate 25 mg [id number] SQ Last administered on 10/12/16 23:01; Start at 21:00; Stop 10/14/16 at 13:46; Status DC Multivitamins (Thera M Plus) 1 tab DAILY PO Last administered on 10/20/16 09: 54; Start 10/13/16 at 09:00 Olanzapine (ZyPREXA) 2.5 mg DAILY PO ; Start 10/13/16 at 09:00 Artificial Tears (Artificial Tears) 1 drop [id number] OU Last administered on 06:05; Start 10/13/16 at 06:00 Sennosides (Senna) 8.6 mg PRN BID PRN PO CONSTIPATION; Start 10/12/16 at 19:15 Sertraline HCl (Zoloft) 50 mg DAILY PO ; Start 10/13/16 at 09:00 Thiamine Mononitrate (Vitamin B-1) 100 mg DAILY PO Last administered on 09:53; Start 10/13/16 at 09:00 Amlodipine Besylate (Norvasc) 10 mg DAILY PO Last administered on 10/20/16 09: 54; Start 10/13/16 at 09:00 Clonazepam (KlonoPIN) 0.5 mg BID PO ; Start 10/12/16 at 21:00; Stop 10/18/16 at 13:01; Status DC Non-Formulary Medication 1 ea BID OU Last administered on 10/20/16 09:00; Start 10/12/16 at 21:00 Nystatin 5 ml [id number] ; Start 10/13/16 at 09:30; Stop 10/13/16 at 15:55; Status DC Pantoprazole Sodium (Protonix) 40 mg DAILYAC PO Last administered on 10/18/16 09:17; Start 10/13/16 at 09:30; Stop 10/18/16 at 11:46; Status DC Potassium Chloride 40 meq/ Dextrose 1,020 ml @ 100 mls/hr [id number] IV Last administered on 10/14/16 09:59; Start 10/13/16 at 11:30; Stop 10/14/16 at 10:35 ; Status DC Iohexol (Omnipaque 300 Mg/ml) 75 ml 1X ONCE IV Last administered on 10/13/16 16:41; Start 10/13/16 at 16:00; Stop 10/13/16 at 16:01; Status DC Info (Do NOT chart on this entry -- for MONITORING) 1 each PRN DAILY PRN MC SEE COMMENTS; Start 10/13/16 at 16:00; Stop 10/15/16 at 15:59; Status DC Fluconazole/ Sodium Chloride 50 ml @ 100 mls/hr Q24H IV Last administered on 01:52; Start 10/13/16 at 16:00; Stop 10/17/16 at 10:12; Status DC Gadobutrol (Gadavist) 5 mmol 1X ONCE IV Last administered on 10/13/16 19:09; Start 10/13/16 at 18:45; Stop 10/13/16 at 18:46; Status DC Potassium Chloride/Dextrose/ Sod Cl 1,000 ml @ 80 mls/hr [id number] IV Last administered on 10/18/16 03:07; Start 10/14/16 at 10:45; Stop 10/18/16 at 12:59 ; Status DC Acetaminophen (Acetaminophen Supp) 650 mg PRN Q4HRS PRN VA FEVER Last administered on 10/14/16 10:57; Start 10/14/16 at 10:45 Piperacillin Sod/ Tazobactam Sod 3.375 gm/Sodium Chloride 50 ml @ 100 mls/hr Q6HRS IV Last administered on 10/15/16 11:59; Start 10/14/16 at 13:30; Stop at 15:41; Status DC Vancomycin HCl (Vanco Per Pharmacy) 1 each PRN DAILY PRN MC SEE COMMENTS Last administered on 10/16/16 15:26; Start 10/14/16 at 13:30; Stop 10/17/16 at 10:12 ; Status DC Vancomycin HCl 1.25 gm/Sodium Chloride 250 ml @ 166.667 mls/hr 1X ONCE IV Last administered on 10/14/16 15:07; Start 10/14/16 at 13:45; Stop 10/14/16 at 15:14; Status DC Vancomycin HCl 750 mg/Sodium Chloride 250 ml @ 250 mls/hr Q24H IV Last administered on 10/15/16 15:34; Start 10/15/16 at 15:00; Stop 10/16/16 at 18:00 ; Status DC Vancomycin HCl 1 each 1X ONCE MC Last administered on 10/16/16 14:30; Start 10/16/16 at 14:30; Stop 10/16/16 at 14:31; Status DC Magnesium Sulfate/ Dextrose 50 ml @ 25 mls/hr 1X ONCE IV Last administered on 10/15/16 11:20; Start 10/15/16 at 10:00; Stop 10/15/16 at 11:59; Status DC Info 1 each PRN DAILY PRN MC SEE COMMENTS Last administered on 10/17/16 14:45 ; Start 10/16/16 at 11:15; Stop 10/18/16 at 13:12; Status DC Vancomycin HCl 750 mg/Sodium Chloride 250 ml @ 250 mls/hr Q12H IV Last administered on 10/17/16 02:03; Start 10/17/16 at 03:00; Stop 10/17/16 at 10:12 ; Status DC Vancomycin HCl 1 each 1X ONCE MC ; Start 10/18/16 at 14:30; Stop 10/18/16 at 14 :31; Status Cancel Ringer's Solution 1,000 ml @ 50 mls/hr Q20H IV ; Start 10/16/16 at 19:38; Stop 10/17/16 at 07:37; Status DC Cephalexin HCl (Keflex) 500 mg BID PO Last administered on 10/18/16 09:16; Start 10/17/16 at 11:00; Stop 10/18/16 at 10:30; Status DC Midazolam HCl (Versed) 5 mg STK-MED ONCE .ROUTE ; Start 10/17/16 at 15:56; Stop 10/17/16 at 15:57; Status DC Fentanyl Citrate (Fentanyl 2ml Vial) 100 mcg STK-MED ONCE .ROUTE ; Start at 15:56; Stop 10/17/16 at 15:57; Status DC Diphenhydramine HCl (Benadryl) 50 mg STK-MED ONCE .ROUTE ; Start 10/17/16 at 15: 56; Stop 10/17/16 at 15:57; Status DC Diphenhydramine HCl (Benadryl) 50 mg STK-MED ONCE IV Last administered on 16:16; Start 10/17/16 at 16:16; Stop 10/17/16 at 16:54; Status DC Midazolam HCl (Versed) 5 mg STK-MED ONCE IV Last administered on 10/17/16 16: 16; Start 10/17/16 at 16:16; Stop 10/17/16 at 16:54; Status DC Fentanyl Citrate (Fentanyl 2ml Vial) 100 mcg STK-MED ONCE IV Last administered on 10/17/16 16:16; Start 10/17/16 at 16:16; Stop 10/17/16 at 16:54; Status DC Fentanyl Citrate (Fentanyl 2ml Vial) 100 mcg STK-MED ONCE IV Last administered on 10/17/16 16:18; Start 10/17/16 at 16:18; Stop 10/17/16 at 16:54; Status DC Midazolam HCl (Versed) 5 mg STK-MED ONCE IV Last administered on 10/17/16 16: 18; Start 10/17/16 at 16:18; Stop 10/17/16 at 16:55; Status DC Fentanyl Citrate (Fentanyl 2ml Vial) 100 mcg STK-MED ONCE IV Last administered on 10/17/16 16:20; Start 10/17/16 at 16:20; Stop 10/17/16 at 16:55; Status DC Midazolam HCl (Versed) 5 mg STK-MED ONCE IV Last administered on 10/17/16 16: 20; Start 10/17/16 at 16:20; Stop 10/17/16 at 16:55; Status DC Fentanyl Citrate (Fentanyl 2ml Vial) 100 mcg STK-MED ONCE IV Last administered on 10/17/16 16:22; Start 10/17/16 at 16:22; Stop 10/17/16 at 16:55; Status DC Midazolam HCl (Versed) 5 mg STK-MED ONCE IV Last administered on 10/17/16 16: 22; Start 10/17/16 at 16:22; Stop 10/17/16 at 16:55; Status DC Cefepime HCl 1 gm/ Sodium Chloride 50 ml @ 100 mls/hr Q8HRS IV Last administered on 10/20/16 06:02; Start 10/18/16 at 11:00 Metronidazole (Flagyl) 500 mg Q12HR PEG Last administered on 10/20/16 09:54; Start 10/18/16 at 10:30 Linezolid (Zyvox) 600 mg BID PEG Last administered on 10/20/16 09:54; Start at 10:30 Lansoprazole (Prevacid) 30 mg [id number] FT Last administered on 10/20/16 09: 55; Start 10/18/16 at 16:30 Potassium Chloride/Sodium Chloride 1,000 ml @ 75 mls/hr [id number] IV Last administered on 10/19/16 22:45; Start 10/18/16 at 14:00 Fentanyl Citrate (Fentanyl 2ml Vial) 50 mcg PRN Q3HRS PRN IV PAIN Last administered on 10/19/16 22:40; Start 10/18/16 at 13:30 Sodium Chloride 1,000 ml @ 0 mls/hr 1X ONCE IV Last administered on 00:07; Start 10/18/16 at 23:45; Stop 10/18/16 at 23:46; Status DC Vitals/I & O Vital Sign - Last 24 Hours 10/19/16 10/19/16 10/19/16 10/19/16 15:00 19:00 20:00 22:40 Temp 99.9 99.0 99.9 99.0 Pulse 98 99 Resp 16 19 B/P (MAP) 137/57 (83) 120/66 (84) Pulse Ox 98 94 O2 Delivery Room Air Room Air Room Air Room Air 10/19/16 10/20/16 10/20/16 23:00 07:00 09:54 Temp 99.9 99.9 99.9 99.9 Pulse 95 98 98 Resp 21 21 B/P (MAP) 117/65 (82) 154/66 (95) 154/66 Pulse Ox 91 92 O2 Delivery Room Air Room Air Intake and Output 10/19/16 10/19/16 10/20/16 15:00 23:00 07:00 Intake Total 130 ml 50 ml Output Total 0 ml Balance 130 ml 50 ml MIGUEL FORD MD Oct 20, 2016 11:28
[2016-10-20] MEDS: ACETAMINOPHEN 325 MG TABLET. PO PRN (12:20)
[2016-10-20] MEDS: fentaNYL PF VIAL 100 MCG/2 ML VIAL IV PRN ×2 (12:22→16:38)
--- NOTE | 2016-10-20 12:24 | PDOC ---
Infectious Disease Note Subjective Subjective Confused Doesn't recognize family members No fever last 24 hours ROS ROS GEN: Denies fevers, chills, sweats HEENT: Denies blurred vision, sore throat CV: Denies chest pain RESP: Denies shortness of air, cough GI: Denies n/v/d NEURO: Denies confusion, dizziness MSK: Denies weakness, joint pain/swelling Vital Sign Vital Signs Vital Signs Date Time Temp Pulse Resp B/P (MAP) Pulse Ox O2 Delivery O2 Flow Rate FiO2 10/20/16 11:00 97.5 98 21 121/57 (78) 92 Room Air 97.5 Labs Lab Laboratory Tests Test 10/20/16 04:25 White Blood Count 5.3 x10^3/uL (4.0-11.0) Red Blood Count 2.88 x10^6/uL (3.50-5.40) Hemoglobin 8.1 g/dL (12.0-15.5) Hematocrit 24.9 % (36.0-47.0) Mean Corpuscular Volume 86 fL (79-100) Mean Corpuscular Hemoglobin 28 pg (25-35) Mean Corpuscular Hemoglobin Concent 33 g/dL (31-37) Red Cell Distribution Width 17.1 % (11.5-14.5) Platelet Count 145 x10^3/uL (140-400) Sodium Level 132 mmol/L (136-145) Potassium Level 4.9 mmol/L (3.5-5.1) Chloride Level 104 mmol/L (98-107) Carbon Dioxide Level 23 mmol/L (21-32) Anion Gap 5 (6-14) Blood Urea Nitrogen 11 mg/dL (7-20) Creatinine 0.4 mg/dL (0.6-1.0) Estimated GFR (Cockcroft-Gault) 157.3 Glucose Level 117 mg/dL (70-99) Calcium Level 8.0 mg/dL (8.5-10.1) Micro 10/18. URINE CULTURE RES 1 Preliminary Gram negative rods 50,000-100,000 colony forming units per mL BC NGTD Objective Assessment UTI. GNR Fever / Post procedure. Leukopenia ? Med - better S/p PEG 10/17 h/o staph infection of left hip prosthesis, on chronic Keflex. Bone scan July 2016 in [place] - neg (reviewed results in records obtained) Fever - resolved ? aspiration Dysphagia Immunosuppression on methotrexate for polymyositis - off now h/o breast cancer on surveillance h/o MRSA Encephalopathy Plan Plan of Care change cefepime to cipro cont chronic suppressive keflex d/w son ok to d/c soon Attending Co-Sign The patient was seen and interviewed as well as examined at the bedside. The chart was reviewed. The case was discussed. Agree with the plan of care. YANE MOTTA APRN Oct 20, 2016 12:24 SUZANNE RIVERA MD Oct 20, 2016 14:53
[2016-10-20] MEDS: POTASSIUM CL 40MEQ IN 0.9%NACL 1,000 ML IV SCH (13:23)
--- NOTE | 2016-10-20 13:26 | PDOC ---
Subjective: Subjective: Had "all over pain" earlier. Objective: Objective: Son at bedside w/ questions. Vital Signs: Vital Signs Date Time Temp Pulse Resp B/P (MAP) Pulse Ox O2 Delivery O2 Flow Rate FiO2 10/20/16 12:22 Room Air 10/20/16 11:00 97.5 98 21 121/57 (78) 92 97.5 Labs: Laboratory Tests Test 10/20/16 04:25 White Blood Count 5.3 x10^3/uL Red Blood Count 2.88 x10^6/uL Hemoglobin 8.1 g/dL Hematocrit 24.9 % Mean Corpuscular Volume 86 fL Mean Corpuscular Hemoglobin 28 pg Mean Corpuscular Hemoglobin Concent 33 g/dL Red Cell Distribution Width 17.1 % Platelet Count 145 x10^3/uL Sodium Level 132 mmol/L Potassium Level 4.9 mmol/L Chloride Level 104 mmol/L Carbon Dioxide Level 23 mmol/L Anion Gap 5 Blood Urea Nitrogen 11 mg/dL Creatinine 0.4 mg/dL Estimated GFR (Cockcroft-Gault) 157.3 Glucose Level 117 mg/dL Calcium Level 8.0 mg/dL PE: GEN: NAD LUNGS: clear HEART: RRR ABD: non-tender, PEG looks good NEURO/PSYCH: awake/alert A/P: Psych problems -was refusing all PO -s/p PEG placement 10/17/16 Gastric ulcer, duodenal ulcer -no H. pylori on path -on PPI, note also on ASA Anemia -Hgb now stable in 8s Fever, UTI Polymyositis -- PEG functioning well, no H. pylori on path. Continue PEG feeds, PPI. OH METCALF Oct 20, 2016 13:26
[2016-10-20 15:00] VITALS: BP 126/62
[2016-10-20 19:00] VITALS: BP 126/62
[2016-10-20] MEDS ORDERED: clonazePAM 0.5 MG TABLET PO SCH (21:00)
[2016-10-20] MEDS: CIPROFLOXACIN HCL 250 MG TABLET. PO SCH (22:01)
[2016-10-20] MEDS: CEPHALEXIN 250 MG CAPSULE. PO SCH (22:01)
[2016-10-20 23:00] VITALS: BP 143/61
[2016-10-21] MEDS: ACETAMINOPHEN 325 MG TABLET. PO PRN ×2 (02:11→14:00)
[2016-10-21] MEDS: fentaNYL PF VIAL 100 MCG/2 ML VIAL IV PRN (02:12)
[2016-10-21 03:00] VITALS: BP 136/69
[2016-10-21] MEDS: POTASSIUM CL 40MEQ IN 0.9%NACL 1,000 ML IV SCH (03:12)
[2016-10-21] MEDS: POLYVINYL ALCOHOL 1.4% OPHTH SOLUTION 15ML BOTTLE. OU SCH ×2 (06:55→09:16)
[2016-10-21 07:00] VITALS: BP 134/67
[2016-10-21 07:14] LABS: CALCIUM 8.2 mg/dL (8.5-10.1); CREATININE 0.4 mg/dL (0.6-1.0); GFR 157.3
[2016-10-21 07:20] LABS: POTASSIUM 5.2 mmol/L (3.5-5.1)
[2016-10-21] MEDS: LANSOPRAZOLE 30 MG TAB.RAP.DR FT SCH (07:30)
[2016-10-21] MEDS: XIIDRA OU SCH (09:00)
[2016-10-21] MEDS: amLODIPine BESYLATE 10 MG TABLET PO SCH (09:14)
[2016-10-21] MEDS: CEPHALEXIN 250 MG CAPSULE. PO SCH ×2 (09:14→13:59)
[2016-10-21] MEDS: THIAMINE 100 MG TABLET. PO SCH (09:14)
[2016-10-21] MEDS: FOLIC ACID 1 MG TABLET. PO SCH (09:15)
[2016-10-21] MEDS: OLANZapine 2.5 MG TABLET PO SCH (09:15)
[2016-10-21] MEDS: MULTIVITAMIN with MINERAL TABLET. PO SCH (09:15)
[2016-10-21] MEDS: EZETIMIBE 10 MG TABLET. PO SCH (09:15)
[2016-10-21] MEDS: ASPIRIN CHEWABLE 81 MG TABLET. PO SCH (09:15)
[2016-10-21] MEDS: CIPROFLOXACIN HCL 250 MG TABLET. PO SCH (09:15)
[2016-10-21] MEDS: SERTRALINE 50 MG TABLET. PO SCH (09:15)
[2016-10-21 11:00] VITALS: BP_SYST 125; BP_SYST 141; BP_DIAS 47; BP_DIAS 76
== END 2016-10-21 15:41 | DRG 545 ==
LOC: 6 SOUTH 17:40 → 5 NORTH 17:44
PROVIDERS: ADMIT Internal Medicine; ATTEND Internal Medicine
PROC: 0DH63UZ Insertion of Feeding Device into Stomach, Percutaneous Approach (ICD-10-PCS; principal; 2016-10-12)
PROC: 0DB68ZX Excision of Stomach, Via Natural or Artificial Opening Endoscopic, Diagnostic (ICD-10-PCS; 2016-10-12)
DX: M33.20 Polymyositis, organ involvement unspecified (principal); G93.40 Encephalopathy, unspecified; E43 Unspecified severe protein-calorie malnutrition; E87.1 Hypo-osmolality and hyponatremia; N39.0 Urinary tract infection, site not specified; K25.9 Gastric ulcer, unspecified as acute or chronic, without hemorrhage or perforation; R50.81 Fever presenting with conditions classified elsewhere; R13.12 Dysphagia, oropharyngeal phase; E83.52 Hypercalcemia; E83.42 Hypomagnesemia; F03.90 Unspecified dementia, unspecified severity, without behavioral disturbance, psychotic disturbance, mood disturbance, and anxiety; F31.9 Bipolar disorder, unspecified; F41.9 Anxiety disorder, unspecified; E78.5 Hyperlipidemia, unspecified; M19.90 Unspecified osteoarthritis, unspecified site; I73.9 Peripheral vascular disease, unspecified; I10 Essential (primary) hypertension; Z96.642 Presence of left artificial hip joint; K26.9 Duodenal ulcer, unspecified as acute or chronic, without hemorrhage or perforation; H26.9 Unspecified cataract; D64.9 Anemia, unspecified; K29.70 Gastritis, unspecified, without bleeding; D70.9 Neutropenia, unspecified; R70.0 Elevated erythrocyte sedimentation rate; Z92.21 Personal history of antineoplastic chemotherapy; Z86.14 Personal history of Methicillin resistant Staphylococcus aureus infection; Z85.3 Personal history of malignant neoplasm of breast; Z90.12 Acquired absence of left breast and nipple; Z86.010 Personal history of colon polyps; Z86.19 Personal history of other infectious and parasitic diseases; Z88.6 Allergy status to analgesic agent; Z88.8 Allergy status to other drugs, medicaments and biological substances; Z68.21 Body mass index [BMI] 21.0-21.9, adult
CPT/HCPCS: 36415; 36569; 70553; 71010; 71260; 73502; 74177; 80048; 80053; 80202; 81001; 82306; 82550; 82607; 83735; 84100; 84145; 84443; 85027; 85610; 85651; 86140; 87040; 87086; 87186; 87641; 88305; 88342; J0692; J1200; J1450; J2250; J2405; J2543; J3010; J3370; J3480; J7030; J7042; J7050; J7060; Q9967; A9585